=== PATIENT | female | born 1970 | race Caucasian/White ===

== ENCOUNTER 2021-05-25 12:46 | Outpatient (REF) | payer OTHER, SELFPAY ==
[2021-05-25 13:20] LABS: MANUAL DIFF FLAG NO
[2021-05-25 14:04] LABS: Basophils Percent Auto 0.5 % (0-2); Eosinophils Absolute Auto 0.4 X10*3/uL (0.0-0.4); Eosinophils Percent Auto 7.3 % (0-4); Hematocrit 40.3 % (37-47); Hemoglobin 13.5 g/dl (12.0-16.0); Imm Gran Abs Auto 0.02 X10*3/uL (0.00-0.03); Imm Gran Pct Auto 0.4 % (0.0-0.4); Lymphocytes Percent Auto 35.8 % (20-40); Mean Corpuscular HGB Conc 33.5 g/dl (31.0-35.0); Mean Corpuscular Hemoglobin 27.6 pg (27.0-33.0); Mean Corpuscular Volume 82.2 fL (80-98); Mean Platelet Volume 9.1 fL (9.4-12.3); Monocytes Absolute Auto 0.6 X10*3/uL (0.1-1.2); Monocytes Percent Auto 11.3 % (2-11); Neutrophils Absolute Auto 2.5 X10*3/uL (2.0-8.3); Neutrophils Percent Auto 44.7 % (45-73); Platelet Count 261 X10*3/uL (160-400); White Blood Count 5.6 X10*3/uL (4.8-10.8)
[2021-05-25 14:39] LABS: C Reactive Protein 0.15 mg/dL (< or = 0.50)
[2021-05-25 14:52] LABS: Erythrocyte Sedimentation Rate 7 MM/HR (0-20)
[2021-05-29 22:37] LABS: Protein C Activity 97 % (70-180); Protein S Activity rflx Tot&Fr 76 % (60-140)
[2021-05-30 01:01] LABS: Factor V Leiden NEGATIVE
== END 2021-05-25 12:47 | disposition home or self-care (01) ==
LOC: HO.LAB 12:46
PROVIDERS: PCP Internal Medicine; Visit Provider Psychiatry & Neurology Neurology
DX: G44.209 Tension-type headache, unspecified, not intractable (principal)
CPT/HCPCS: 36415; 81241; 85025; 85302; 85303; 85305; 85306; 85652; 86140

== ENCOUNTER 2021-05-28 19:01 | Emergency (ER) | payer OTHER, SELFPAY ==
[2021-05-28 19:33] VITALS: BP 141/80; PULSE 79; RESP 16; TEMP 36.2; O2SAT 99; BMI 28.3
--- NOTE | 2021-05-28 21:46 | ED_ITS ---
HPI - General Adult General Chief complaint: General Medical Stated complaint: R/O DVT Time Seen by Provider: 05/28/21 21:30 History of Present Illness HPI narrative: Patient is a 51-year-old female presents today with having diffuse bumps over the arms and legs. These lesions has occurred over the last week. is no fever no chills no chest pain or shortness of breath no nausea no vomiting. No focal weakness. Patient is from home. No cough no congestion or upper respiratory symptoms. No dizziness. Related Data Allergies Allergy/AdvReac Type Severity Reaction Status Date / Time interferons Allergy Unknown Uncoded 04/24/18 00:00 sulfa Allergy Unknown Uncoded 04/24/18 00:00 Review of Systems Review of Systems: No fever no chills no chest pain or shortness breath no nausea no vomiting Yes all other systems are reviewed and are negative [facility] Past Medical History Attestation statement: The following information was validated with the patient. Medical History High cholesterol HTN (hypertension) Psoriasis Raynaud disease TIA (transient ischemic attack) Social History Social History Advance Directives: No Advance Directives Information Provided: No Physical Exam Vital Signs: Vital Signs: Last Vital Signs Temp 97.1 F 05/28/21 19:33 Pulse 79 05/28/21 19:33 Resp 16 05/28/21 19:33 BP 141/80 H 05/28/21 19:33 Pulse Ox 99 05/28/21 19:33 Body Mass Index 28.3 Appearance: Alert. Oriented X3. No acute distress. Eyes: Pupils equal, round and reactive to light. ENT: Pharynx normal. Neck: Normal inspection. Neck supple. No lymph nodes noted. No crepitus CVS: Normal heart rate and rhythm. Pulses normal. Normal S1 and S2 Respiratory: No respiratory distress. Breath sounds normal. No Wheezing. No rales Abdomen: Soft and nontender. No rigidity. No distention. good BS x4 Skin: Positive skin lesions in the arms and legs. Speech seems to be attached to skin nonmobile. Approximately 3 cm x 3 cm in size. Skin itself appears normal. Extremities: No lower extremity edema. Neurovascular intact to all extremities. No Lacerations. No Rash Neuro: Oriented X 3. No motor deficit. No sensory deficit. Moving all extermities. No slurred speech Medical Decision Making MDM Narrative Medical decision making narrative: Unsure as to the etiology of these bumps. Patient has no systemic complaints at this time. Will have patient follow-up with Dermatology. Patient already seen Dermatology and her primary physician for the same issue in the past. In stable condition will discharge home Discharge Plan Discharge Clinical Impression: Skin abnormality Patient Disposition: Home, Self-Care Instructions: Acute Rash (ED) Additional Instructions: Please follow-up with your head athletic trainer on an outpatient basis. Referrals: Physician,Unknown [Primary Care Provider] - 2 days (Please follow-up with your skin doctor in the next few days.)
== END 2021-05-28 22:01 | disposition home or self-care (01) ==
PROVIDERS: Emergency Provider Emergency Medicine Emergency Medical Services
DX: R60.0 Localized edema (principal); R21 Rash and other nonspecific skin eruption
CPT/HCPCS: 99283

== ENCOUNTER 2023-10-26 18:05 | Emergency (ER) | payer OTHER, SELFPAY ==
--- NOTE | ~2023-10-26 | XR_ITS ---
EXAMINATION: XR CHEST 2 VIEWS CLINICAL INFORMATION: Hypertension. COMPARISON: None. TECHNIQUE: Frontal and lateral views of the chest were obtained. FINDINGS: There is mild cardiomegaly. No congestive heart failure is seen. There is no infiltrate, effusion or pneumothorax. There is mild elevation of the right hemidiaphragm. No acute osseous abnormality is seen. There are degenerative changes of the thoracic spine. XR/XR chest 2V IMPRESSION: 1. There is mild cardiomegaly, without congestive heart clear. 2. No focal infiltrate, effusion or pneumothorax is seen.
--- NOTE | ~2023-10-26 | CT_ITS ---
EXAMINATION: CT head/brain wo IV con CLINICAL INFORMATION: Reason for Exam hypertensive, headache COMPARISON: None. TECHNIQUE: Contiguous axial imaging was performed from the skull base to vertex without intravenous contrast. Sagittal and coronal reformatted images were obtained. This CT examination was performed using dose optimization techniques as appropriate, variously including the following: * Automated exposure control * Adjustment of mA and/or kV according to patient size (this includes techniques or standardized protocols for targeted exams where dose is matched to indication/reason for exam; i.e. extremities or head) Use of iterative reconstruction technique DLP: 592.61 mGy-cm FINDINGS: No acute osseous or soft tissue abnormality. The mastoid air cells and visualized portions of the paranasal sinuses are well aerated. There is no evidence of acute intracranial hemorrhage or territorial infarction. No abnormal mass effect or midline shift is seen. Carranza to white matter differentiation is well preserved. No extra-axial fluid collections are identified. No hydrocephalus. No significant volume loss. Patchy periventricular and deep white matter hypoattenuation is consistent with mild small vessel ischemic changes. CT/CT head/brain wo IV con IMPRESSION: No acute intracranial abnormality including hemorrhage, mass effect, hydrocephalus, or acute territorial edematous infarction.
--- NOTE | 2023-10-26 18:13 | ED_ITS ---
HPI - General Adult General Chief complaint: General Medical Stated complaint: high blood pressure, headache, nausea Time Seen by Provider: 10/26/23 21:49 Source: patient Mode of arrival: ambulatory Limitations: no limitations History of Present Illness HPI narrative: Patient is a 53 old female who presents to the emergency department for evaluation of intermittent headache predominantly frontal headache over the past week. It does alleviate with acetaminophen/ibuprofen but then returns. This prompted her to begin checking her blood pressure at home and reports that she has been having elevated readings 180/100. She contacted her primary care provider to try and schedule a visit to be seen and she was advised to come to the emergency department. She denies any dizziness, lightheadedness, vision changes, neck pain, chest pain, shortness of breath, nausea, vomiting, abdominal pain, numbness or tingling of the extremities. Reports compliance with her antihypertensives including amlodipine, losartan, and metoprolol tartrate without any recent dosage changes. Related Data Allergies Allergy/AdvReac Type Severity Reaction Status Date / Time interferons Allergy Unknown Hives Uncoded 10/26/23 18:13 sulfa Allergy Unknown Hives Uncoded 10/26/23 18:13 Review of Systems 2 Review of Systems: Yes all other systems are reviewed and are negative [facility] Past Medical History Attestation statement: The following information was validated with the patient. Source: old records reviewed Medical History Raynaud disease Psoriasis TIA (transient ischemic attack) High cholesterol HTN (hypertension) Social History Social History Smoked in Last 30 Days: No Use of substances other than those prescribed or required for medical reasons: No Advance Directives: No Advance Directives Information Provided: No Patient : No Physical Exam ED Vital Signs: Vital Signs - 24 hr 10/26/23 18:14 10/26/23 21:38 10/26/23 22:38 Temperature 98.4 F Pulse Rate 92 98 84 Respiratory Rate 18 16 16 Blood Pressure 184/102 H 190/102 H 142/87 H Pulse Oximetry 96 97 98 Oxygen Delivery Method Room Air Room Air Room Air BMI result Body Mass Index 30.0 Appearance: Alert.?Oriented to person, place and time. No acute distress.?Normal affect. Eyes: Pupils equal, round and reactive to light.? ENT: Pharynx normal.?? Neck: Normal inspection.? Neck supple.?? CVS: Heart sounds normal. Normal heart rate and rhythm.? Pulses normal.?? Respiratory: No respiratory distress.? Lung sounds clear to auscultation bilaterally?? Abdomen: Soft and non-tender. Normoactive bowel sounds. ? Skin: Skin warm and dry.? Normal skin color.? Extremities: No lower extremity edema.? Neuro: Moves all extremities spontaneously. Sensation intact bilaterally. CN II- XII intact. No focal neuro deficits. Ambulates with normal steady gait. Course Course Course Narrative: This is a rapid medical exam: Additional HPI, ROS, PE not included below will be deferred to primary provider. Patient is a 53-year-old female presenting to the ED with complaint of headache intermittently throughout the week, rates at 5/10. Has been checking BP at home, was 189/101. Called PCP, nurse referred patient to the ED. Currently on Losartan, amlodipine, and metoprolol. Denies recent medication changes. BP in triage 184/102. Denies chest pain or dyspnea. States at times vision gets fuzzy. Denies hx of similar headaches. Plan: EKG, labs, CT head Medications Administered Discontinued Medications Generic Name Dose Route Start Last Admin Trade Name Freq PRN Reason Stop Dose Admin Acetaminophen 975 mg 10/26/23 22:32 10/26/23 22:39 Acetaminophen 325 Mg Tablet PO 10/26/23 22:33 975 mg ONCE ONE Administration Medical Decision Making Medical Decision Making MDM Narrative: Patient is a 53 old female with past medical history of Raynaud's, psoriasis, TIA, hypercholesterolemia, hypertension presenting to emergency department for evaluation of an intermittent frontal headache and elevated blood pressure readings despite compliance with her antihypertensive regimen. At the time my examination she appears overall well, nontoxic, afebrile. Has no focal neurological deficits. A CT of the head was obtained prior to my assumption of care which reveals no acute intracranial pathology, no ICH/infarct. Headache does alleviate with use of acetaminophen which she is requesting at this time. Upon review her blood pressure has improved; 142/87. I discussed with patient appropriate ways to check blood pressure while at rest, legs crossed etc. and keeping a log to present to her primary care provider. Reviewed serum labs obtained no signs of end-organ damage. No leukocytosis, no anemia, no electrolyte abnormality, no FELECIA. High sensitive troponin below detectable limits. Urinalysis without evidence of infection. Viral panel is negative. EKG revealing a normal sinus rhythm with ventricular rate of 88, QTC 447, no ST elevation, no ST depression. No evidence of ACS. At this time feel that she is stable for discharge home and outpatient follow-up. Discussed strict return precautions. Differential Diagnosis Differential Diagnoses: The differential diagnosis associated with the presentation includes (As noted above) Admission/Observation Consideration of admission/observation: Escalation of care including admission/observation considered (See narrative above) Lab Data MDM Lab Attestation statement: I reviewed the patient's lab results. (See narrative above) 10/26/23 18:48 10/26/23 18:48 Labs: Lab Results 10/26/23 10/26/23 Range/Units 18:48 22:00 WBC 6.7 (4.8-10.8) X10*3/uL RBC 4.39 (4.20-5.50) X10*6/uL Hgb 12.5 (12.0-16.0) g/dl Hct 36.4 L (37.0-47.0) % MCV 82.9 (80.0-98.0) fL MCH 28.5 (27.0-33.0) pg MCHC 34.3 (31.0-35.0) g/dl RDW 12.7 (11.0-16.0) % Plt Count 194 (160-400) X10*3/uL MPV 9.5 (9.4-12.3) fL Immature Gran % (Auto) 0.3 (0.0-0.4) % Neut % (Auto) 31.2 L (45-73) % Lymph % (Auto) 49.7 H (20-40) % [place] % (Auto) 11.0 (2-11) % Eos % (Auto) 7.2 H (0-4) % Baso % (Auto) 0.6 (0-2) % Lymph # (Auto) 3.3 (1.2-4.9) X10*3/uL [place] # (Auto) 0.7 (0.1-1.2) X10*3/uL Eos # (Auto) 0.5 H (0.0-0.4) X10*3/uL Baso # (Auto) 0.0 (0.0-0.2) X10*3/uL Abs Immat Gran (auto) 0.02 (0.00-0.03) X10*3/uL Absolute Neuts (auto) 2.1 (2.0-8.3) x10*3/uL Absolute Nucleated RBC 0.000 (0.0-0.012) X10*3/uL Nucleated RBC % (auto) 0.0 (0.0-0.2) /100WBC PT 12.2 (11.1-13.3) SEC INR 1.0 (0.9-1.1) Sodium 144 (135-145) mmol/L Potassium 3.7 (3.3-5.1) mmol/L Chloride 108 (96-108) mmol/L Carbon Dioxide 24 (22-29) mmol/L Anion Gap 16 (12-20) BUN 13 (9-16) mg/dL Creatinine 0.83 (0.5-1.4) mg/dL Estim Creat Clear Calc 76.0 Estimated GFR > 60 Random Glucose 110 (60-115) mg/dL Calcium 9.4 (8.4-10.2) mg/dL Total Bilirubin 0.4 (0.0-1.0) mg/dL AST 24 (5-31) U/L ALT 17 (0-31) U/L Alkaline Phosphatase 97 (39-117) U/L Troponin I High Sens < 2.7 (<3.5-17.0) ng/L Total Protein 7.0 (6.5-8.0) g/dL Albumin 4.2 (3.5-5.0) g/dL Urine Color Yellow Urine Appearance Clear Urine pH 6.5 (5.0-9.0) Ur Specific [place] 1.010 (1.005-1.025) Urine Protein Negative (Neg-Trace) mg/dL Urine Glucose (UA) Negative (Negative) mg/dL Urine Ketones Negative (Negative) mg/dL Urine Blood Negative (Negative) Urine Nitrite Negative (Negative) Ur Leukocyte Esterase Negative (Negative) Influenza Type A (PCR) NEGATIVE (Negative) Influenza Type B (PCR) NEGATIVE (Negative) RSV RNA Qual (PCR) NEGATIVE (Negative) SARS-CoV-2 RNA (RT-PCR) NEGATIVE (Negative) Independent Interpretation I performed an independent interpretation of an: EKG (See narrative above) and CT Scan (No ICH) Radiology Impression Discussion of test interpretation with radiology: I have reviewed the radiologist's reading. Radiologist Impression: CT/CT head/brain wo IV con IMPRESSION: No acute intracranial abnormality including hemorrhage, mass effect, hydrocephalus, or acute territorial edematous infarction. XR/XR chest 2V IMPRESSION: 1. There is mild cardiomegaly, without congestive heart clear. 2. No focal infiltrate, effusion or pneumothorax is seen. Prescription Management I considered prescription management with: Other (Antihypertensive, she is on multiple agents in high doses, advised close outpatient follow-up with her PCP for further management/potential dosage changes.) Chronic Conditions Patient?s care impacted by: Hypertension Critical Care Time Critical Care Time Critical Care Time: Yes Total Critical Care Time: 35 Attestation: I personally attest to this critical care time spent taking care of the patient exclusive of all other billable procedures was approximately 35 minutes including initial evaluation of patient, ordering tests, x-ray interpretation, EKG interpretation, documentation, re-evaluation. Discharge Plan Discharge Clinical Impression: Headache, Hypertension Patient Disposition: Home, Self-Care Instructions: How to Take a Blood Pressure (ED), Acute Headache (ED), Hypertension (ED) Additional Instructions: You can take Tylenol 500 mg, 2 tablets (1,000mg) every 4-6 hours as needed for pain, but not to exceed 3 doses daily (3,000mg).? As discussed, continue taking your blood pressure medications as prescribed, follow-up closely with your primary care provider. Keep a record of your blood pressure readings to provide your primary care doctor. Return back to emergency department any new or worsening symptoms or concerns. Referrals: Loida Izaguirre MD [Primary Care Provider] - Interventions: ED Discharge Assessment Last Done: 10/26/23 22:45 Discharge Date/Time: 10/26/23 22:46
[2023-10-26 18:14] VITALS: BP 184/102; PULSE 92; RESP 18; TEMP 36.9; O2SAT 96
--- NOTE | 2023-10-26 18:17 | ECG_ITS ---
Test Reason : htn Blood Pressure : / mmHG Vent. Rate : 088 BPM Atrial Rate : 088 BPM P-R Int : 166 ms QRS Dur : 080 ms QT Int : 370 ms P-R-T Axes : 028 000 033 degrees QTc Int : 447 ms Normal sinus rhythm cannot exclude inferior infarct, but could be normal variant Borderline ECG No previous ECGs available Referred By: Heather Lee Electronically Signed By:RITESH GAMEZ
[2023-10-26 18:53] LABS: MANUAL DIFF FLAG NO
[2023-10-26 18:55] LABS: Basophils Percent Auto 0.6 % (0-2); Eosinophils Absolute Auto 0.5 X10*3/uL (0.0-0.4); Eosinophils Percent Auto 7.2 % (0-4); Hematocrit 36.4 % (37.0-47.0); Hemoglobin 12.5 g/dl (12.0-16.0); Imm Gran Abs Auto 0.02 X10*3/uL (0.00-0.03); Imm Gran Pct Auto 0.3 % (0.0-0.4); Lymphocytes Absolute Auto 3.3 X10*3/uL (1.2-4.9); Lymphocytes Percent Auto 49.7 % (20-40); Mean Corpuscular HGB Conc 34.3 g/dl (31.0-35.0); Mean Corpuscular Hemoglobin 28.5 pg (27.0-33.0); Mean Corpuscular Volume 82.9 fL (80.0-98.0); Mean Platelet Volume 9.5 fL (9.4-12.3); Monocytes Absolute Auto 0.7 X10*3/uL (0.1-1.2); Neutrophils Absolute Auto 2.1 x10*3/uL (2.0-8.3); Neutrophils Percent Auto 31.2 % (45-73); Platelet Count 194 X10*3/uL (160-400); Red Blood Count 4.39 X10*6/uL (4.20-5.50); Red Cell Distribution Width 12.7 % (11.0-16.0); White Blood Count 6.7 X10*3/uL (4.8-10.8)
[2023-10-26 19:06] LABS: Prothrombin Time 12.2 SEC (11.1-13.3)
[2023-10-26 19:08] LABS: Alanine Aminotransferase 17 U/L (0-31); Albumin Level 4.2 g/dL (3.5-5.0); Alkaline Phosphatase 97 U/L (39-117); Anion Gap 16 (12-20); Aspartate Amino Transferase 24 U/L (5-31); Bilirubin Total 0.4 mg/dL (0.0-1.0); Blood Urea Nitrogen 13 mg/dL (9-16); Calcium 9.4 mg/dL (8.4-10.2); Carbon Dioxide 24 mmol/L (22-29); Chloride 108 mmol/L (96-108); Estimated Glomerular Filt Rate > 60; Glucose Random 110 mg/dL (60-115); Potassium 3.7 mmol/L (3.3-5.1); Sodium 144 mmol/L (135-145)
[2023-10-26 19:17] LABS: Troponin-I High Sensitivity < 2.7 ng/L (<3.5-17.0)
[2023-10-26 21:38] VITALS: BP 190/102; PULSE 98; RESP 16; O2SAT 97
[2023-10-26 22:09] LABS: Appearance Urine Clear; Color Urine Yellow; Glucose Urine UA Negative (Negative); Leukocyte Esterase Urine Negative (Negative); Nitrite Urine Negative (Negative); PH 6.5 (5.0-9.0); Urine Blood Negative (Negative); Urine Ketones Negative (Negative); Urine Protein Negative (Neg-Trace)
[2023-10-26 22:38] VITALS: BP 142/87; PULSE 84; RESP 16; O2SAT 98
[2023-10-26] MEDS: Acetaminophen 325 MG TABLET 975 MG PO (22:39)
[2023-10-26 22:41] LABS: Influenza A PCR NEGATIVE (Negative); Influenza B PCR NEGATIVE (Negative); Resp Syncy Virus RNA Qual PCR NEGATIVE (Negative); SARS COV2 PCR INHOUSE NEGATIVE (Negative)
== END 2023-10-26 22:46 | disposition home or self-care (01) ==
PROVIDERS: Nurse Practitioner Family; Registered Nurse Emergency; Emergency Provider Emergency Medicine; PCP Internal Medicine
DX: R51.9 Headache, unspecified (principal); I10 Essential (primary) hypertension; R11.2 Nausea with vomiting, unspecified; R94.31 Abnormal electrocardiogram [ECG] [EKG]; Z11.52 Encounter for screening for COVID-19; Z79.899 Other long term (current) drug therapy; Z20.822 Contact with and (suspected) exposure to COVID-19
CPT/HCPCS: 0241U; 36415; 70450; 71046; 80053; 81003; 84484; 85025; 85610; 93005; 99285

== ENCOUNTER → 2023-10-26 18:17 | Outpatient (BNV) | payer OTHER, SELFPAY | PROVIDERS: Emergency Provider Emergency Medicine; PCP Internal Medicine; Visit Provider Internal Medicine | DX: R94.31 Abnormal electrocardiogram [ECG] [EKG] (principal) | CPT/HCPCS: 93010 ==

== ENCOUNTER 2024-09-18 08:52 | Outpatient (AMB) | payer OTHER, SELFPAY ==
[2024-09-18 09:01] VITALS: BP 140/80; PULSE 61; O2SAT 96; BMI 29.4
--- NOTE | 2024-09-18 09:01 | A.OFFVIS_ITS ---
Vital Signs 09/18/24 09:01 Height 5 ft 3 in Weight 166 lb 2 oz BMI 29.4 BP 140/80 H Blood Pressure Location Lt brachial Position Sitting Pulse 61 Pulse Source Pulse Oximeter Pulse Oximetry (%) 96 Oxygen Delivery Method Room Air Intake Visit Reasons: PSA Intake Note: Patient presents for follow up on PSA. She needs refills on Humira and Leflunomide. Accompanied by: Spouse Allergies interferons Allergy (Unknown, Uncoded 09/18/24 09:03) Hives sulfa Allergy (Unknown, Uncoded 09/18/24 09:03) Hives HPI HPI PSA: Details: She has not had humira and leflunomide in 2 months. She did not [facility] because her father was diagnosed with cancer and required evaluations. Hands and feet are swellon. Hard to open jars. Hands are weak. Limping. She had a lung infection less than a month ago and was placed on prednisone taper and z-pack by bss solution architect. Her joints felt better. Psoriasis did not flare. [facility] Medical History Raynaud disease Psoriasis TIA (transient ischemic attack) High cholesterol HTN (hypertension) Review of Systems Const All systems reviewed & are unremarkable except as noted in HPI and below Physical Exam Vital Signs: Last Vital Signs Pulse 61 09/18/24 09:01 BP 140/80 H 09/18/24 09:01 Pulse Ox 96 09/18/24 09:01 Oxygen Delivery Method Room Air 09/18/24 09:01 BMI result Body Mass Index 29.4 Const Other: General: Comfortable CVS: RRR Respiratory: clear to auscultation bilaterally. Good respiratory effort Skin: No lesions seen MSK: Chronic synovial thickening bilateral MCPs. She has synovitis in right 2nd 4th and 5th PIP and left 5th PIP. All PIP knees are tender. Bilateral wrists are tender. She has tenderness of bilateral shoulders. Shoulder abduction 160 degrees. Good internal external rotation of bilateral shoulders. Bilateral MTP tenderness. Tender left knee with mild synovitis present. Limited full external rotation of bilateral hips. Assessment & Plan Assessment & Plan (1) Psoriatic arthritis: Comment: Uncontrolled off of DMARD therapy. Code(s): L40.50 - Arthropathic psoriasis, unspecified Category: Medical Plan: Labs for disease and drug monitoring ordered We will start PA process to resume Humira 40 mg every other week. Prescription sent to [facility] After lab results are back, I will send prescription for leflunomide 20 mg daily and meloxicam 15 mg daily. I will defer prednisone for now. She will call office if her joint symptoms worsened. Requesting records [facility] Return to clinic in 3 months (2) Other long term acute care registered nurse (current) drug therapy: Code(s): Z79.899 - [facility] [place] [facility] (current[facility] drug therapy Category: Medical Plan: See above Orders: Orders Hepatitis B,C Profile Today L40.50 - Arthropathic psoriasis, unspecified, Z79.899 - Other long term acute care registered nurse (current) drug therapy Erythrocyte Sedimentation Rate Today L40.50 - Arthropathic psoriasis, unspecified, Z79.899 - Other long term acute care registered nurse (current) drug therapy Aspartate Amino Transferase Today Z79.60 - prison (current) use of unspecified immunomodulators and immunosuppressants Complete Blood Count Auto Diff Today Z79.60 - superintendent container terminal (current) use of unspecified immunomodulators and immunosuppressants T Spot TB Today L40.50 - Arthropathic psoriasis, unspecified, Z79.899 - Other [place] [facility] (current) drug therapy C Reactive Protein Today L40.50 - Arthropathic psoriasis, unspecified, Z79.899 - Other long term acute care registered nurse (current) drug therapy Alanine Aminotransferase Today Z79.60 - [facility] (current) use of unspecified immunomodulators and immunosuppressants Creatinine Today Z79.60 - [facility] terminal (current) use of unspecified immunomodulators and immunosuppressants Medications: New adalimumab (Humira(CF) Pen) PA needed. Continuity of treatment. 40 mg (0.4 mL) subcut Q14D 2 ea 2RF Coding Level of Care Code Est Pt Level 4 (24612) Complex EM visit Add On G2211 Diagnoses Psoriatic arthritis L40.50 Other long term acute care registered nurse (current) drug therapy Z79.899
--- OUTSIDE RECORDS SUMMARY | 2024-09-18 09:08 | XMS_ITS | Encounter Summary ---
Author Organization [facility] Address [address] [place] [address] Care Team Providers Care Certification And Selection Specialist Name Role Phone Loida Izaguirre MD Primary Care Provider [phone] Reason for Visit * Reason Onset Date Comments prior auth 08/26/2024 Encounter Details Date Type Department Care Team ([facility] Contact Info) Description 08/26/2024 Telephone [facility] [address] [phone] Jeaneth South [place] prior auth Social History Tobacco Use Types Packs/Day Years Used Date Smoking Tobacco: Former Cigarettes S tarted: 08/28/1982 Smokeless Tobacco: Never Quit: 08/31/2002 Alcohol Use Standard Drinks/Week Comments No 0 (1 standard drink = 0.6 oz pur e alcohol) Sex and Gender Information Value Date Recorded Sex Assigned at Not on file Gender Identity Not on file Sexual Orientation Not on file Job Start Date Occupation Industry Not on file Not on file Not on file documented as of this encounter Progress Notes * Jeaneth South [place] - 08/26/2024 1:59 PM EST Albuterol prior authorization faxed to [facility]. Fax confirmation received. documented in this encounter Plan of Treatment Upcoming Encounters Date Type Department Care Team (Late Contact Info) Description 09/24/2024 8:15 AM EST Appointment [facility] Nuclear Medicine [address] [place] [phone] 10/21/2024 8:00 AM EST Appointment [facility] Xray [address] [place] [address] 10/29/2024 8:45 AM EST Office Visit Obstetrics and Gynecology - [place] [address] [place] [address] Doris Gonzales, CNM [address] [place] [address] 10/30/2024 1:15 PM EST Office Visit Adult Medicine [facility] [address] [place] [address] Loida Izaguirre MD [address] [place] [address] 10/31/2024 9:00 AM EST Office Visit Thoracic Surgery - [place] 299 [facility] [address] [place] [address] Cheri Beck MD [address] [address] 11/20/2024 9:10 AM EDT Office Visit Pulmonolgy - [place] 175 [facility] [address] [place] [address] Cynthia Dc NP 175 [facility] [address] [place] [address] documented as of this encounter Visit Diagnoses Not on filedocumented in this encounter Care Teams Certification And Selection Specialist Relationship Specialty Start Date End Date Loida Izaguirre MD [address] [place] [id number] PCP - General Internal Medicine 09/01/21 documented as of this encounter
--- OUTSIDE RECORDS SUMMARY | 2024-09-18 09:08 | XMS_ITS | Encounter Summary ---
Author Organization [facility] Address [address] [place] [address] Care Team Providers Care Process Engineering Intern Name Role Phone Loida Izaguirre MD Primary Care Provider [phone] Reason for Visit * Reason Onset Date Comments DME request 08/22/2024 Original CPAP Encounter Details Date Type Department Care Team ([facility] Contact Info) Description 08/22/2024 Telephone [facility] 175 [facility] [address] [place] [phone] Jeaneth South [place] DME request (Original CPAP) Social History Tobacco Use Types Packs/Day Years [...] Progress Notes * Jeaneth South [place] - 08/22/2024 1:38 PM EST Original CPAP order faxed to [facility]. Fax confirmation received. documented in this encounter Plan of Treatment Upcoming Encounters Date Type Department Care Team ([facility] Contact Info) Description 09/24/2024 8:15 AM EST Appointment [facility] Nuclear Medicine [address] [place] [phone] 10/21/2024 8:00 AM EST Appointment [facility] Xray [address] [place] [address] 10/29/2024 8:45 AM EST Office Visit Obstetrics and Gynecology - [place] [address] [place] [address] Doris Gonzales, CNM [address] [place] [address] 10/30/2024 1:15 PM EST Office Visit Adult Medicine [facility] [address] [place] [address] Loida Izaguirre MD [address] [place] [address] 10/31/2024 9:00 AM EST Office Visit Thoracic Surgery - [place] 299 [facility] [address] [place] [address] Cheri Beck MD [address] [address] 11/20/2024 9:10 AM EDT Office Visit Pulmonolgy - [place] 175 [facility] [address] [place] [address] Cynthia Dc NP 175 [facility] [address] [place] [address] documented as of this encounter Visit Diagnoses Not on filedocumented in this encounter Care Teams Process Engineering Intern Relationship Specialty Start Date End Date Loida Izaguirre MD [address] [place] [address] PCP - General Internal Medicine 09/01/21 documented as of this encounter
--- OUTSIDE RECORDS SUMMARY | 2024-09-18 09:08 | XMS_ITS | Encounter Summary ---
Author Organization [facility] Address [address] [place] [address] Care Team Providers Care Transformer Coil Winder Name Role Phone Loida Izaguirre MD Primary Care Provider [phone] Reason for Referral * Medications - Closed Specialty Diagnoses / Procedures Referred By Controse mary t Referred To Contact Diagnoses Chronic obstructive pulmonary disease with acute lower respiratory infection (CMS/HCC) Cynthia Dc NP [address] [address] Referral ID Status Reason Start Date Expiration Date Visits Re quested Visits Authorized [id number] Closed 1 1 Reason for Visit * Reason Comments COPD Sleep Apnea Sleep study review. Encounter Details Date Type Department Care Team (Late st Contact Info) Description 08/22/2024 8:50 AM EST Office Visit Pulmonolgy - [place] [address] [facility] [address] [address] Cynthia Dc NP 175 [facility] [address] [place] [address] Chronic obstructive pulmonary disease with acute lower respiratory infection (CMS/HCC) (Primary Dx); Non-seasonal allergic rhinitis due to other allergic trigger; Moderate obstructive sleep apnea; Pulmonary nodules; Rheumatoid arthritis, involving unspecified site, unspecified whether rheumatoid factor present (CMS/HCC); Overweight (BMI 25.0-29.9) Social History Tobacco Use Types Packs/Day Years [...] on file documented as of this encounter Last Filed Vital Signs Vital Sign Reading Time Taken Comments Blood Pressure 124/70 08/22/2024 8:56 AM EST Pulse 68 08/22/2024 8:56 AM EST Temperature 35.8 ??C (96.4 ??F) 08/22/2024 8:56 AM ES T Respiratory Rate 16 08/22/2024 8:56 AM EST Oxygen Saturation 99% 08/22/2024 8:56 AM EST Inhaled Oxygen Concentration - - Weight 75.3 kg (166 lb) 08/22/2024 8:56 AM EST Height 160 cm (5' 3 ) 08/22/2024 8:56 AM EST Body Mass Index 29.41 08/22/2024 8:56 AM EST documented in this encounter Ordered Prescriptions Prescription Sig Dispensed Refills Start Date End Da te albuterol HFA (Ventolin HFA) 90 mcg/actuation inhalerIndications:Chron ic obstructive pulmonary disease with acute lower respiratory infection (CMS/HCC) Inhale 2 puffs by mouth every 4 (four) hours if needed for wheezing. 54 g 3 08/22/2024 umeclidinium-vilanteroL (Anoro Ellipta) 62.5-25 mcg/actuation inhalerIndications:Chron ic obstructive pulmonary disease with acute lower respiratory infection (CMS/HCC) Inhale 1 puff by mouth 1 (one) time each day. 3 each 3 08/22/2024 loratadine (CLARITIN) 10 mg tabletIndications:Non-se asonal allergic rhinitis due to other allergic trigger Take 1 tablet (10 mg total) by mouth 1 (one) time each day. 90 tablet 3 08/22/2024 08/22/2025 montelukast (SINGULAIR) 10 mg tabletIndications:Non-se asonal allergic rhinitis due to other allergic trigger Take 1 tablet (10 mg total) by mouth at bedtime. Sig: TAKE 1 TABLET BY MOUTH AT BEDTIME 90 tablet 3 08/22/2024 predniSONE (DELTASONE) 10 mg tabletIndications:COPD exacerbation,asthma exacerbation Take 4 tablets (40 mg total) by mouth 1 (one) time each day for 3 days, THEN 3 tablets (30 mg total) 1 (one) time each day for 3 days, THEN 2 tablets (20 mg total) 1 (one) time each day for 3 days, THEN 1 tablet (10 mg total) 1 (one) time each day for 3 days. 30 each 08/22/2024 09/03/2024 azithromycin (ZITHROMAX) 250 mg tabletIndications:Chroni c obstructive pulmonary disease with acute lower respiratory infection (CMS/HCC) Take 2 tablets (500 mg total) by mouth 1 (one) time each day for 1 day, THEN 1 tablet (250 mg total) 1 (one) time each day for 4 days. 6 each 08/22/2024 08/27/2024 documented in this encounter Progress Notes * Cynthia Dc, SILVICULTURE TEACHER - 08/22/2024 8:50 AM EST ADULT PULMONARY MEDICINE FOLLOW UP CHIEF COMPLAINT or REASON FOR CONSULTATION: COPD and Sleep Apnea (Sleep study review. ) HISTORY OF PRESENT ILLNESS: Christine Matt is a 54 y.o. female, former smoker with a history of RA, Ranauld's, COPD, type Emphysema, Sarcoidosis and COVID 19 in 02/2022 who comes for follow up. She has seeing me on 06/30/2023 but lost to follow up. She denies any visits to ER, hospitlizations or prednisone use for breathing since last visit. She states received prednisone from Dr. Roberts due to her RA flare up awhile back. She is on Anoro daily and Singular nightly. However notes that about 3 weeks ago her cough increased and change color from clear to green but no fevers or chills. She states notes wheezing but no chest tightness and dyspnea is stable. Can do 1flight or flat ground with normal pace about half of a parking lot. She denies recent sick contacts but did have recently sore throat. No sinus congestion, no earache,no sinus pressure or headaches. She states she always poor sleeper. Was told that snores. She lays down at 830 and takes about 1 hour to read then falls asleep and gets up at 530. States Snoirng, expirience nightmares, frequently gets up to pee up to 6 times, RLS, toss and turn, and unrested in the morning. Occasionally has headaches. She had sleep study on 08/09/2023 which shows moderate sleep apnea seeing today first time after study done. States no weight change. patient would like to [facility]. She has allergies and well controlled on Claratin and Flonase. Last visit added Singulair feels better. She states restarted on Omeprazole 40mg daily and also added Carafate for her GERD but still have significant heartburn seeing GI and seeing Thoracic surgery for evaluation of hernias. Patient states seeing Dr. Roberts in [place] for RA. Had given prednisone for flare up. She was on Arava but now takes Humira. Working on weight changes. Stopped eating icecream and watching portions. ALLERGIES: Allergies Allergen Reactions Other Hives Interferon Abdiel Interferons Methotrexate Hives Sulfate Ion Hives ACTIVE MEDICATIONS: Outpatient Medications Marked as Taking for the 08/22/24 encounter (Office Visit) with Cynthia Dc NP Medication Sig Dispense Refill adalimumab (Humira,CF, Pen) 40 mg/0.4 mL pen Inject into the skin every 14 days. albuterol HFA (Ventolin HFA) 90 mcg/actuation inhaler Inhale 2 puffs by mouth every 4 (four) hours if needed for wheezing. 54 g 3 amLODIPine (NORVASC) 10 mg tablet Take 1 tablet (10 mg total) by mouth 1 (one) time each day. aspirin 81 mg EC tablet TAKE 1 TABLET BY MOUTH EVERY DAY 90 tablet 1 clonazePAM (KlonoPIN) 0.5 mg tablet Take 0.5 mg by mouth at bedtime as needed. diclofenac (VOLTAREN) 1 % topical gel APPLY 1 G TOPICALLY 4 TIMES DAILY NEEDED (PAIN). famotidine (PEPCID) 20 mg tablet Take 1 Tablet by mouth 2 times daily as needed for Heartburn. loratadine (CLARITIN) 10 mg tablet Take 1 tablet (10 mg total) by mouth 1 (one) time each day. 90 tablet 3 losartan (COZAAR) 100 mg tablet Take 1 tablet (100 mg total) by mouth 1 (one) time each day. medical supply, miscellaneous (MISCELLANEOUS MEDICAL [facility]Y [facility]) [facility]. Devices (Fingertip Pulse Oximeter) [facility] Sig - Route: 1 Device by Does not apply route as needed for Other (shortness of breath). - Does notapply Sent to pharmacy as: Fingertip Pulse Oximeter metoprolol tartrate (LOPRESSOR) 100 mg tablet Take 1 tablet (100 mg total) by mouth 1 (one) time each day. montelukast (SINGULAIR) 10 mg tablet Take 1 tablet (10 mg total) by mouth at bedtime. Sig: TAKE 1 TABLET BY MOUTH AT BEDTIME 90 tablet 3 omeprazole (PriLOSEC) [address] capsule TAKE 1 CAPSULE BY MOUTH DAILY. TAKE ON EMPTY STOMACH, WAIT 30 MINUTES AND THEN EAT TO ACTIVATE MEDICATION. rosuvastatin (CRESTOR) 5 mg tablet Take 1 tablet (5 mg total) by mouth 1 (one) time each day. sucralfate (CARAFATE) 1 gram tablet Take 1 Tablet by mouth 4 times daily. umeclidinium-vilanteroL (Anoro Ellipta) 62.5-25 mcg/actuation inhaler Inhale 1 puff by mouth 1 (one) time each day. 3 each 3 venlafaxine XR (EFFEXOR-XR) 150 mg 24 hr capsule Take 150 mg by mouth daily. [DISCONTINUED] albuterol HFA (Ventolin HFA) 90 mcg/actuation inhaler INHALE 2 PUFFS INTO THE LUNGS EVERY 4 HOURS NEEDED FOR COUGH OR WHEEZING. [DISCONTINUED] loratadine (CLARITIN) 10 mg tablet Take 1 tablet (10 mg total) by mouth 1 (one) timeeach day. [DISCONTINUED] montelukast (SINGULAIR) 10 mg tablet Sig: TAKE 1 TABLET BY MOUTH AT BEDTIME Sent to pharmacy as: Montelukast Sodium 10 MG Oral Tablet (SINGULAIR) [DISCONTINUED] umeclidinium-vilanteroL (Anoro Ellipta) 62.5-25 mcg/actuation inhaler Inhale 1 Puff into the lungs daily. REVIEW OF SYSTEMS: GENERAL: No malaise, signifcant weight loss, fevers or chills,+fatigue HEENT: worsening vision, no nose bleeds or throat or ear issues,+nasal congestion and clearing throat improved on meds,+snoring NECK: Negative for lumps, goiter, pain and significant neck swelling RESPIRATORY: see HPI CARDIOVASCULAR: no chest pain, leg swelling or palpitations+HTN,+gasping GI: No abdominal discomfort, blood in stools or black stools, +diarrhea + acid reflex on PPI and Pepcid : No dysuria, frequency or incontinence or nocturia MUSCULOSKELETAL: + hand joint pain +swelling, back pain, or +muscle pain+body aches(RA, +Raynaud's) SKIN: No lesions, rash or itching PSYCH: + sleep disturbance, +anxiety, +depression, claustrophobia or SI/HI. HEMATOLOGY/LYMPHOLOGY No prolonged bleeding, easy bruisability or swollen nodes ENDOCRINE: No cold or heat intolerance, +polyuria, +polydipsia or goiter. NEURO: + frequent headache, syncope, seizures, weakness or numbness+TIA The remainder of the review of systems is noncontributory PAST MEDICAL HISTORY: Past Medical History: Diagnosis Date Anxiety 05/09/2018 DX:Anxiety Chronic hepatitis C (CMS/HCC) 05/09/2018 DX:Chronic hepatitis C (HCC); COMMENT: Currently treated at [facility] in [place]. Negative titers 05/2018 Chronic neck and back pain 09/25/2018 DX:Chronic neck and back pain Colon polyps 05/09/2018 DX:Colon polyps Complex ovarian cyst 10/18/2018 DX:Complex ovarian cyst Constipation 10/08/2018 DX:Constipation COPD (chronic obstructive pulmonary disease) (CMS/HCC) 01/04/2022 DX:COPD (chronic obstructive pulmonary disease) (HCC) Depression 05/09/2018 DX:Depression; COMMENT: Follows with psychiatrist in [place] Taking effexor for 14 yrs Epigastric pain DX:Epigastric pain Foot fracture, right 04/18/2018 DX:Foot fracture, right Gastritis DX:Gastritis GERD (gastroesophageal reflux disease) 05/09/2018 DX:GERD (gastroesophageal reflux disease) HTN (hypertension) 05/09/2018 DX:HTN (hypertension) Hyperlipidemia 05/29/2020 DX:Hyperlipidemia Internal hemorrhoids DX:Internal hemorrhoids Intertrigo 09/25/2018 DX:Intertrigo Macromastia 09/25/2018 DX:Macromastia Nausea DX:Nausea Psoriasis 05/09/2018 DX:Psoriasis; COMMENT: On topical steroid PTSD (post-traumatic stress disorder) 05/09/2018 DX:PTSD (post-traumatic stress disorder) Raynaud's phenomenon 10/18/2018 DX:Raynaud's phenomenon Rheumatoid arthritis (CMS/HCC) DX:Rheumatoid arthritis (HCC) Sarcoid 09/01/2022 DX:Sarcoid Sarcoidosis DX:Sarcoidosis Spinal stenosis 10/18/2018 DX:Spinal stenosis Subclinical hypothyroidism 05/20/2019 DX:Subclinical hypothyroidism PAST SURGICAL HISTORY: Past Surgical History: Procedure Laterality Date ANKLE SURGERY Right PROCEDURE: HISTORICAL ANKLE SURGERY; COMMENT: internal fixation--- pin removed later BREAST BIOPSY PROCEDURE: BX BREAST; PERC NEEDLE CORE W/IMAG GUID CARPAL TUNNEL RELEASE Left 02/08/2021 PROCEDURE: IA NEUROPLASTY &/TRANSPOS MEDIAN NRV CARPAL TUNNE; COMMENT: with Dr. Wilson eCTR COLONOSCOPY PROCEDURE: HISTORICAL COLONOSCOPY; COMMENT: 2010 with polyps COLONOSCOPY 08/2019 PROCEDURE: HISTORICAL COLONOSCOPY; COMMENT: Performed September 24 with along with EGD-repeat colonoscopy in 10 years ESOPHAGOGASTRODUODENOSCOPY 08/2019 PROCEDURE: IA EGD TRANSORAL BIOPSY SINGLE/MULTIPLE; COMMENT: Performed with colonoscopy on September 24-with Dr. Cruz. Positive for erythema and antrum and duodenum ESOPHAGOGASTRODUODENOSCOPY 12/23/2020 PROCEDURE: IA EGD TRANSORAL BIOPSY SINGLE/MULTIPLE; COMMENT: Visually normal; mapping biopsies doneto evaluate intestinal metaplasia of the gastric mucosa. Pathology: Normal, no intestinal metaplasia. ESOPHAGOGASTRODUODENOSCOPY PROCEDURE: IA EGD TRANSORAL BIOPSY SINGLE/MULTIPLE; COMMENT: Formed on December 23, 2020 HAND SURGERY Right PROCEDURE: HISTORICAL HAND SURGERY; COMMENT: carpal tunnel and trigger finger KNEE SURGERY Left PROCEDURE: HISTORICAL KNEE SURGERY; COMMENT: age 13 OOPHORECTOMY Right PROCEDURE: HISTORICAL OOPHORECTOMY; COMMENT: for cyst TUBAL LIGATION PROCEDURE: HISTORICAL TUBAL LIGATION SOCIAL HISTORY: TOBACCO: Started 13 years old, Quit: 2001, around 2 pack daily at the most, for at least 20 years. Patient is 39 PPY. ALCOHOL: past sober for 19 year DRUGS: clean for 19 years- meth. 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 Smoking. Cats. Nohot tubs. LUNGS FAMILY HISTORY: none IMMUNIZATION: 2021 Influenza Vaccine none Pneumococcal 13 2017 Pneumococcal 23 2021 Moderna x1 PULMONARY HOSPITALIZATION Hx: Never PHYSICAL EXAM: Visit Vitals BP 124/70 Pulse 68 Temp 35.8 ??C (96.4 ??F) (Temporal) Resp 16 Ht 1.6 m (63 ) Wt 75.3 kg (166 lb) SpO2 99% BMI 29.41 kg/m?? Smoking Status Former BSA 1.79 m?? BMI PLAN BMI BMI is greater than 25.0 (above the normal range) - see Plan APPEARANCE: Overweight(29.41). Alert and in no acute distress. Speaks in full sentences and no stridor. EYES: Conjunctiva and sclera normal. NOSE/SINUS: Nares normal. Septum midline. Mucosa erythematous without drainage or sinus tenderness. MOUTH/THROAT: no erythema or exudates. Mallampati class III-IV. No thrush. NECK: Neck supple, thyroid symmetric and of normal size. HEART: RRR with normal S1 and S2, no murmurs, no gallops, no JVD appreciated. LUNG: Vesicular sounds adequate bilaterally without wheezes, crackles, rales, rhonchi or rubs. Normal tactile fremitus. Equal chest expension. ABDOMEN: Bowel sounds normoactive, soft, non-tender EXTREMITIES: Warm and well perfused without clubbing, cyanosis, or edema. LYMPH NODES: No cervical and supra-clavicular lymphadenopathy. NEURO: Awake, alert and oriented x 3, no focalization. DIAGNOSTIC DATA: PULMONARY OXYGEN TESTING: Peripheral oxygen saturation or SpO2 on RA today is 99%. PULMONARY BLOOD WORK: CBC-no infection, anemia or eosinophilia Antitripsyn- no elevated SHERWIN- elevated>52(105) IgE-not elevated Allergies-none CARDIOPULMONARY TEST: Last Pulmonary function Test showed: Date: August 16, 2022 Previous PFT: 07/2021 Spirometry: FVC 100% predicted. FEV1 102% predicted. FEV1/FVC 80%. There is no significant responseto bronchodilator. Lung volumes: TLC 109% predicted. RV 95% predicted. Diffusing capacity: The uncorrected diffusing capacity is normal at 87% predicted. Interpretation: Normal pulmonary function studies. DATE OF SERVICE: 08/02/21 INDICATION: SOB, Sarcoidosis SPIROMETRY: FEV1 is 108 % predicted and an FVC is 107 % predicted.The FEV1/FVC ratio is 100% of normal, No significant response to bronchodilators noted. Maximum voluntary ventilation 79% predicted. LUNG VOLUMES: Total lung capacity (TLC): 104% predicted. Residual volume (RV): 79% predicted RV/TLC ratio is 76% of normal End respiratory volume (ERV): 127% predicted DIFFUSION CAPACITY: DLCO 78% predicted. DlCO/VA 84% of predicted COMPARISONS: INTERPRETATION: This pulmonary function test is essnetially normal. There is no evidence of obstructive or restrictive lung disease. The diffusion is at the lower end of normal- this is likely 2nd to pt's smoking history RADIOLOGIST IMAGING: CT CHEST W [facility]AST at [facility] Result Date:09/30/2021 1.Mild emphysema in bilateral apecies. 2. Sub 5mm nodules in the right lobe. 3. Bilateral atelectasis/reticular opacities in bilateral lower lobes. CHEST, TWO VIEWS Result Date:06/22/2021 HISTORY: Sarcoidosis. Prior study: Chest x-ray 07/31/2020. FINDINGS: The lungs are clear. No pleural effusion is seen. No pneumothorax is seen. The cardiomediastinal silhouette is within normal limits. No acute or aggressive appearing bony abnormalities are seen. There is mild curvature and degenerative change of the spine. IMPRESSION IMPRESSION: No acute pulmonary pathology. ASSESSMENT: 1. Chronic obstructive pulmonary disease with acute lower respiratory infection (CMS/HCC) azithromycin (ZITHROMAX) 250 mg tablet predniSONE (DELTASONE) 10 mg tablet umeclidinium-vilanteroL (Anoro Ellipta) 62.5-25 mcg/actuation inhaler albuterol HFA (Ventolin HFA) 90 mcg/actuation inhaler 2. Non-seasonal allergic rhinitis due to other allergic trigger montelukast (SINGULAIR) 10 mg tablet loratadine (CLARITIN) 10 mg tablet 3. Moderate obstructive sleep apnea CPAP DME 4. Pulmonary nodules 5. Rheumatoid arthritis, involving unspecified site, unspecified whether rheumatoid factor present (CMS/HCC) 6. Overweight (BMI 25.0-29.9) who is former smoker, hx of mild emphysema and mild ILD from Sarcoidossis and/or RA as well as nodules and thoracic lymphadenopathy. CT in 2021 shows non-specific nodules some of them calcified(granuloma) and mild medistinal and hilar lymph nodues. She has mild emphysema at the lung apecies, subsegmental atalectasis and reticular opacities in lower lobes. She has 4mm on RLL and 1mm at major fissure nodules non-calcified but stable for a year and no suspicious features. Her PFT 07/2022is normal with improved DLCO(78% to 87%). Pt doing well on Anoro daily and albuterol as needed. Her Rheumotologist started on Humira instead of Arava which help improve RA and ILD-CT. She has allergies and possibly due to allergies cough with Claritin and Flonase still persist. May benefit from Singulair or similar. PLAN: COPD/ASTHMA W EXACERBATION/INFECTION - Continue on Anoro 1puff daily - Continue on Singulair 10mg daily - Continue on albuterol 2 puffs every 6 hours as needed - give prednisone taper due to increased cough and wheezes -give Zpack due to purulent cough ILD - Continue monitoring witth PFTs and imaging as symtpms progress. LUNG NODULES/LYMPHADENOPATHY - per guidelines no follow up is not necessary. MODERATE CHRISSY -Pathophysiology, diagnostic, treatment options, risks and benefits of CPAP/Bipap use, risks of nontreatment of CHRISSY/central apnea, and care/maintenance of CPAP/BiPAP were discussed. All questions answered. Patient also agreed not to drive or operate heavy machinery if he/she should feel sleepy, green chain puller to a safe part of the road and not resume until fully awake. - [facility] 6[facility] -discuss with patient importance of 70% use for compliance -discuss to call provider if pressures are uncomfortable -discussed to call [facility] if supplies needed RA -continue on Humira 40mg - follow up Dr. Roberts for further treatment ALLERGIES -continue on Claritin 10mg prn for nasal/eye sytmpms -continue Flonase 2sprays prn for nasal symtpms -avoid triggers. GERD - Continue on Omeprazole 40mg daily and Pepcid 20mg BID and Carafate 1G with food and bedtime. - Continue on low acid diet - Instructed to follow-up with PCP and specialist on this health issue tp get different medication if omeprazole 40mg is not covered by insurance. Obesity - Discussed portion control - Discussed diet changes - Discussed physical activities. - Follow up with Loida Izaguirre for the other co-morbilities. - The patient was educated about COPD exacerbation symptoms, reviewed sleep study and educated about sleep apnea and its treatment, where assessment and plan was reviewed and explained, some educational material about his pulmonary problems was given with the discharge summary. All questions were answered. RETURN TO THE NEXT VISIT: Based on physical exam, symptomatology, tests requested and baseline pulmonary evaluation/disease, I instructed the patient to come back to see me in 3 months for reevaluation after the test has beendone or earlier if the patient needed. Thanks Loida Izaguirre for allowing me to have the opportunity to assist in the care of this patient. documented in this encounter Plan of Treatment Upcoming Encounters Date Type Department Care Team (Late st Contact Info) Description 09/24/2024 8:15 AM EST Appointment [facility] Nuclear Medicine [address] [place] [address] 10/21/2024 8:00 AM EST Appointment [facility] Xray [address] [place] [address] 10/29/2024 8:45 AM EST Office Visit Obstetrics and Gynecology [facility] [address] [place] [address] Doris Gonzales, [facility] [address] [place] [address] 10/30/2024 1:15 PM EST Office Visit Adult Medicine [facility] [address] [place] [address] Loida Izaguirre MD [address] [place] [id number] 10/31/2024 9:00 AM EST Office Visit Thoracic Surgery - [place] 299 [facility] [address] [place] [phone] Cheri Beck MD 299 [facility] [address] [place] [address] 11/20/2024 9:10 AM EDT Office Visit Pulmonolgy - [place] 175 [facility] [address] [place] [phone] Cynthia Dc, SILVICULTURE TEACHER 175 [facility] [address] [place] [address] documented as of this encounter Visit Diagnoses Diagnosis Chronic obstructive pulmonary disease with acute lower respiratory infection (CMS/HCC)- Primary Non-seasonal allergic rhinitis due to other allergic trigger Moderate obstructive sleep apnea Pulmonary nodules Other diseases of lung, not elsewhere classified Rheumatoid arthritis, involving unspecified site, unspecified whether rheumatoid factor present (CMS/HCC) Overweight (BMI 25.0-29.9) Overweight documented in this encounter Discontinued Medications Medication Sig Discontinue Reason Start Date End Da te loratadine (CLARITIN) 10 mg tablet Take 1 tablet (10 mg total) by mouth 1 (one) time each day. Reorder 06/08/2023 08/22/2024 albuterol HFA (Ventolin HFA) 90 mcg/actuation inhaler INHALE 2 PUFFS INTO THE LUNGS EVERY 4 HOURS NEEDED FOR COUGH OR WHEEZING. Reorder 09/04/2023 08/22/2024 umeclidinium-vilantero L (Anoro Ellipta) 62.5-25 mcg/actuation inhaler Inhale 1 Puff into the lungs daily. Reorder 06/30/2023 08/22/2024 montelukast (SINGULAIR) 10 mg tablet Sig: TAKE 1 TABLET BY MOUTH AT BEDTIME Sent to pharmacy as: Montelukast Sodium 10 MG Oral Tablet (SINGULAIR) Reorder 08/22/2024 documented as of this encounter Orders General Supply Count Last Ordered Date First Or dered Date CPAP DME 1 08/22/2024 documented in this encounter Care Teams Transformer Coil Winder Relationship Specialty Start Date End Date Loida Izaguirre MD [address] [place] [address] PCP - General Internal Medicine 09/01/21 documented as of this encounter
--- OUTSIDE RECORDS SUMMARY | 2024-09-18 09:08 | XMS_ITS | Encounter Summary ---
Author Organization [facility] Address [address] [place] [address] Care Team Providers Care Winter Sports Manager Name Role Phone Loida Izaguirre MD Primary Care Provider [phone] Encounter Details Date Type Department Care Team (Late Contact Info) Description 08/30/2024 Telephone Thoracic Surgery - [address] [phone] Viviana Allen MA Social History Tobacco Use Types Packs/Day Years [...] as of this encounter Progress Notes * Viviana Allen MA - 08/30/2024 1:35 PM EST Monday09/24/2024 Gastric Emptying Study is booked. Monday10/21/2024 Barium Swallow is booked. Both appointments is NPO MIDNIGHT prior to these appointments. Appointment info sent in letter to patient, with instructions. documented in this encounter Plan of Treatment Upcoming Encounters Date Type Department Care Team ([facility] Contact Info) Description 09/24/2024 8:15 AM EST Appointment [facility] Nuclear Medicine [address] [place] [address] 10/21/2024 8:00 AM EST Appointment [facility] Xray [address] [place] [phone] 10/29/2024 8:45 AM EST Office Visit Obstetrics and Gynecology - [place] [address] [place] [address] Doris Gonzales, [facility] [address] [place] [address] 10/30/2024 1:15 PM EST Office Visit Adult Medicine [facility] [address] [place] [address] Loida Izaguirre MD [address] [place] [address] 10/31/2024 9:00 AM EST Office Visit Thoracic Surgery - [place] [address] [facility] [address] [place] [address] Cheri Beck MD [address] [address] 11/20/2024 9:10 AM EDT Office Visit Pulmonolgy - [place] [address] [facility] [address] [place] [phone] Cynthia Dc NP 175 [facility] [address] [place] [address] documented as of this encounter Visit Diagnoses Not on filedocumented in this encounter Care Teams Winter Sports Manager Relationship Specialty Start Date End Date Loida Izaguirre MD [address] [place] [address] PCP - General Internal Medicine 09/01/21 documented as of this encounter
--- OUTSIDE RECORDS SUMMARY | 2024-09-18 09:08 | XMS_ITS | Data Portability ---
Author Organization [facility], [id number] Address [address] [place] [address] Assessment No assessment recorded. Plan of Treatment Reminders Order Date Submit Date Provider Last Modified By Organization Details Last Modified Time Details Appointments None record ed. Lab None record ed. Referral None record ed. Procedures None record ed. Surgeries None record ed. Imaging None record ed. Medication Orders None record ed. Patient TargetsNo targets recorded. Patient InstructionsNo instructions recorded. Reason for Referral None Reported. Procedures Surgical History Date Name Laterality Status Provider Name and Address Organization Details Recorded Time OC-UDS Send Out Template NON DOT completed [facility]O [facility] 02/24/2023 10:25:52 Imaging Results None recorded. Procedure Notes None recorded. Medical Equipment None Reported. Medications Name Sig Start Date Stop Date Status Note LastModified by Organization Details LastModified Time venlafaxine ER 37.5 mg capsule,exte nded release 24 hr TAKE 1 CAPSULE BY MOUTH ONCE A DAY WITH 150 MG CAPSULE FOR TOTAL DOSE = 187.5 MG active Not Available Not Available N ot Available prednisone 10 mg tablet PLEASE SEE ATTACHED FOR DETAILED DIRECTIONS active Not Available Not Available N ot Available Carafate 100 mg/mL oral suspension TAKE 10 ML BY MOUTH 4 TIMES DAILY (BEFORE MEALS AND NIGHTLY). active Not Available Not Available No t Available metoprolol tartrate 100 mg tablet TAKE 1 TABLET BY MOUTH EVERY DAY active Not Available Not Available No t Available meloxicam 15 mg tablet TAKE 1 TABLET BY MOUTH ONCE DAILY WITH FOOD active Not Available Not Available No t Available prednisone 20 mg tablet TAKE 1 TABLET BY MOUTH TWICE A DAY FOR 5 DAYS active Not Available Not Available No t Available clonazepam 0.5 mg tablet TAKE 1 TABLET BY MOUTH TWICE A DAY NEEDED FOR ANXIETY/INS OMNIA active Not Available Not Available No t Available methylpredni solone 4 mg tablet PLEASE SEE ATTACHED FOR DETAILED DIRECTIONS active Not Available Not Available N ot Available venlafaxine ER 150 mg capsule,exte nded release 24 hr TAKE 1 CAPSULE BY MOUTH EVERY DAY IN THE MORNING active Not Available Not Available No t Available leflunomide 10 mg tablet active Not Available Not Available Not Available omeprazole 40 mg capsule,abbi yed release PLEASE SEE ATTACHED FOR DETAILED DIRECTIONS active Not Available Not Available N ot Available leflunomide 20 mg tablet TAKE 1 TABLET BY MOUTH EVERY DAY active Not Available Not Available No t Available methotrexate sodium 2.5 mg tablet TAKE 5 TABLETS BY MOUTH ONCE A WEEK active Not Available Not Available No t Available amlodipine 10 mg tablet TAKE 1 TABLET BY MOUTH EVERY DAY active Not Available Not Available No t Available benzonatate 100 mg capsule TAKE 1 CAPSULE BY MOUTH 3 TIMES DAILY NEEDED FOR COUGH FOR UP TO 10 DAYS. active Not Available Not Available No t Available diclofenac sodium 75 mg tablet,delay ed release PLEASE SEE ATTACHED FOR DETAILED DIRECTIONS active Not Available Not Available N ot Available folic acid 1 mg tablet TAKE 1 TABLET BY MOUTH EVERY DAY active Not Available Not Available No t Available losartan 100 mg tablet TAKE 1 TABLET BY MOUTH EVERY DAY active Not Available Not Available No t Available fluticasone propionate 50 mcg/actuatio n nasal spray,suspen jarred USE 1 SPRAY INTRANASALL Y ONCE A DAY active Not Available Not Available No t Available loratadine 10 mg tablet TAKE 1 TABLET BY MOUTH EVERY DAY active Not Available Not Available No t Available Ventolin HFA 90 mcg/actuatio n aerosol inhaler INHALE 2 PUFFS INTO THE LUNGS EVERY 6 HOURS NEEDED FOR COUGH, WHEEZING OR SHORTNESS OF BREATH. active Not Available Not Available N ot Available rosuvastatin 5 mg tablet TAKE 1 TABLET BY MOUTH EVERY DAY active Not Available Not Available No t Available diclofenac 1 % topical gel APPLY 1 GRAM TOPICALLY 4 TIMES A DAY NEEDED FOR PAIN active Not Available Not Available No t Available Anoro Ellipta 62.5 mcg-25 mcg/actuatio n powder for inhalation TAKE 1 PUFF BY MOUTH EVERY DAY active Not Available Not Available No t Available Paxlovid 300 mg (150 mg x 2)-100 mg tablets in a dose pack TAKE 3 TABLETS BY MOUTH TWICE DAILY FOR 5 DAYS active Not Available Not Available No t Available Vitals None Recorded Social History None recorded. Functional Status None recorded. Mental Status None recorded. Family History Nothing Reported. Medical History No medical history recorded. Gynecological HistoryNo gynecological history recorded. Obstetrics History GPAL:G 0 P 0 0 0 0 Past Encounters Encounter ID Performer Location Encounter Start Date Encounter Closed Date Diagnosis/Indication Diagnosis SNOMED-CT Code Diagnosis ICD10 Code Diagnosis Note [id number] [address] [place] [address] 05/19/2021 11:04:13 05/19/2021 12:17:12 [id number] [address] [place] [phone] 01/17/2022 10:00:57 01/17/2022 13:05:48 [id number] [address] [place] [address] [address] 04/18/2018 17:30:04 04/18/2018 18:38:53 [id number] [address] [place] [phone] 03/09/2019 11:07:32 03/09/2019 12:09:16 [id number] IS[facility] PACE [address] [place] [address] 02/24/2023 09:37:25 02/24/2023 10:26:41 History and physical examination, occupation 609196758 Z02.1 Health Concerns Section Related Observation LastModified by Organization Detai ls LastModified Time None Recorded Concern Status LastModified by Organization Details LastModified Time None Recorded Advance Directives Directive None Recorded Payers Encounter Date Sequence Insurance Name Policy Number Policy White Covered Member ID White Member ID Guarantor Name 04/18/[address] [facility] (MEDICAID REPLACEMENT - HMO) JUAN CARLOS Matt [id number] Christine Matt 05/19/[address] [facility] (MEDICAID REPLACEMENT - HMO) JUAN CARLOS Matt [id number] Christine Matt 01/17/[address] [facility] (MEDICAID REPLACEMENT - HMO) JUAN CARLOS Matt [id number] Christine Matt 02/24/2023 OC-ESCREEN Christine Matt [id number] Khoi Matt OBGyn Episode No OBEpisode recorded.
--- OUTSIDE RECORDS SUMMARY | 2024-09-18 09:08 | XMS_ITS | Clinical Summary ---
Author Organization [facility] [address] [place] [address] Address [address] [facility] [place] Phone Care Team Providers Care Highway Maintenance Technician Name Role Phone Loida Izaguirre MD Primary Care Provider [phone] Allergies Active Allergy Reactions Criticality Noted Date Comments Interferons 02/19/2021 Methotrexate Hives 07/11/2022 Other Hives High 05/09/2018 Interferon Abdiel Sulfate Ion Hives Low 05/09/2018 Medications Medication Sig Dispensed Refills Start Date End Date Status omeprazole (PriLOSEC) [address] capsule TAKE 1 CAPSULE BY MOUTH DAILY. TAKE ON EMPTY STOMACH, WAIT 30 MINUTES AND THEN EAT TO ACTIVATE MEDICATION. 4 Active losartan (COZAAR) 100 mg tablet Take 1 tablet (100 mg total) by mouth 1 (one) time each day. 4 Active metoprolol tartrate (LOPRESSOR) 100 mg tablet Take 1 tablet (100 mg total) by mouth 1 (one) time each day. 4 Active rosuvastatin (CRESTOR) 5 mg tablet Take 1 tablet (5 mg total) by mouth 1 (one) time each day. 4 Active amLODIPine (NORVASC) 10 mg tablet Take 1 tablet (10 mg total) by mouth 1 (one) time each day. 4 Active sucralfate (CARAFATE) 1 gram tablet Take 1 Tablet by mouth 4 times daily. 4 Active famotidine (PEPCID) 20 mg tablet Take 1 Tablet by mouth 2 times daily as needed for Heartburn. 4 Active adalimumab (Humira,CF, Pen) 40 mg/0.4 mL pen Inject into the skin every 14 days. Active medical supply, miscellaneous (MISCELLANEOUS MEDICAL SUPPLY [facility]) [facility]. Devices (Fingertip Pulse Oximeter) [facility] Sig - Route: 1 Device by Does not apply route as needed for Other (shortness of breath). - Does not apply Sent to pharmacy as: Fingertip Pulse Oximeter 2 Active clonazePAM (KlonoPIN) 0.5 mg tablet Take 0.5 mg by mouth at bedtime as needed. Active venlafaxine XR (EFFEXOR-XR) 150 mg 24 hr capsule Take 150 mg by mouth daily. Active aspirin 81 mg EC tablet TAKE 1 TABLET BY MOUTH EVERY DAY 90 tablet 1 4 Active montelukast (SINGULAIR) 10 mg tabletIndications :Non-seasonal allergic rhinitis due to other allergic trigger Take 1 tablet (10 mg total) by mouth at bedtime. Sig: TAKE 1 TABLET BY MOUTH AT BEDTIME 90 tablet 3 4 Active loratadine (CLARITIN) 10 mg tabletIndications :Non-seasonal allergic rhinitis due to other allergic trigger Take 1 tablet (10 mg total) by mouth 1 (one) time each day. 90 tablet 3 4 08/22/20 25 Active umeclidinium-stacey nteroL (Anoro Ellipta) 62.5-25 mcg/actuation inhalerIndication s:Chronic obstructive pulmonary disease with acute lower respiratory infection (CMS/HCC) Inhale 1 puff by mouth 1 (one) time each day. 3 each 3 4 Active albuterol HFA (Ventolin HFA) 90 mcg/actuation inhalerIndication s:Chronic obstructive pulmonary disease with acute lower respiratory infection (CMS/HCC) Inhale 2 puffs by mouth every 4 (four) hours if needed for wheezing. 54 g 3 4 Active diclofenac (VOLTAREN) 1 % topical gel APPLY 1 GRAM TOPICALLY 4 TIMES DAILY NEEDED (PAIN). 400 g 1 5 Active loratadine (CLARITIN) 10 mg tablet Take 1 tablet (10 mg total) by mouth 1 (one) time each day. 3 08/22/20 24 Discontinued(Reo rder) diclofenac (VOLTAREN) 1 % topical gel APPLY 1 G TOPICALLY 4 TIMES DAILY NEEDED (PAIN). 4 09/16/19 25 Discontinued albuterol HFA (Ventolin HFA) 90 mcg/actuation inhaler INHALE 2 PUFFS INTO THE LUNGS EVERY 4 HOURS NEEDED FOR COUGH OR WHEEZING. 4 08/22/20 24 Discontinued(Reo rder) umeclidinium-stacey nteroL (Anoro Ellipta) 62.5-25 mcg/actuation inhaler Inhale 1 Puff into the lungs daily. 3 08/22/20 24 Discontinued(Reo rder) montelukast (SINGULAIR) 10 mg tablet Sig: TAKE 1 TABLET BY MOUTH AT BEDTIME Sent to pharmacy as: Montelukast Sodium 10 MG Oral Tablet (SINGULAIR) 08/22/20 24 Discontinued(Reo rder) azithromycin (ZITHROMAX) 250 mg tabletIndications :Chronic obstructive pulmonary disease with acute lower respiratory infection (CMS/HCC) Take 2 tablets (500 mg total) by mouth 1 (one) time each day for 1 day, THEN 1 tablet (250 mg total) 1 (one) time each day for 4 days. 6 each 4 08/27/20 24 predniSONE (DELTASONE) 10 mg tabletIndications :COPD exacerbation,asth ma exacerbation Take 4 tablets (40 mg total) by mouth 1 (one) time each day for 3 days, THEN 3 tablets (30 mg total) 1 (one) time each day for 3 days, THEN 2 tablets (20 mg total) 1 (one) time each day for 3 days, THEN 1 tablet (10 mg total) 1 (one) time each day for 3 days. 30 each 4 09/03/19 25 Active Problems Problem Noted Date Diagnosed Date Internal hemorrhoids 05/29/2024 Congenital diaphragmatic hernia 05/15/2023 Overview (05/29/2024): Last Assessment & Plan: She does also have a Bochdalek hernia on the right which I explained to her and showed her on a model where this was and what this means. I think it is very unlikely this is related to any symptoms that she has just seems to be fat-containing. In and of itself I do not think there is an indication to fix this but if she wanted to have it fixed that certainly could be done. If she does end up getting a Belen fundoplication then this can be looked at at that time to possibly fix it that as well. All questions were answered. Hiatal hernia 05/15/2023 Sarcoid 09/01/2022 Microalbuminuria 01/06/2022 COPD (chronic obstructive pulmonary disease) 05/2022 Obesity (BMI 30.0-34.9) 01/04/2022 Hyperlipidemia 05/29/2020 Overview (05/29/2024): Last Assessment & Plan: Reviewed patient's cholesterol panel from December 2020 and she has excellent control. She will continue on her cholesterol medicine. Importance of heart healthy diet and exercise was discussed. Left carpal tunnel syndrome 05/29/2020 Prediabetes 09/26/2019 Overview (05/29/2024): Hba1c- 5.7 08/2019 Subclinical hypothyroidism 05/20/2019 Abnormal brain MRI 04/22/2019 Overview (05/29/2024): 03/15. Dr. Zimmerman: microvascular disease, ectatic left vertebral artery Ataxia 04/22/2019 Overview (05/29/2024): On clonazepam, sees Dr. Zimmerman Pending EEG and MONIKA Cerebral microvascular disease 04/17/2019 Overview (05/29/2024): Dr. Zimmerman Complex ovarian cyst 10/18/2018 Raynaud's phenomenon 10/18/2018 Spinal stenosis 10/18/2018 Constipation 10/08/2018 Anxiety 05/09/2018 Chronic hepatitis C 05/09/2018 Overview (05/29/2024): Currently treated at [facility] in [place]. Negative titers 05/2018 Colon polyps 05/09/2018 Depression 05/09/2018 Overview (05/29/2024): Follows with psychiatrist in [place] Taking effexor for 14 yrs GERD (gastroesophageal reflux disease) 8 Overview (05/29/2024): Last Assessment & Plan: 53-year-old woman with longtime reflux on omeprazole and Carafate still with symptoms of heartburn. I had a long discussion with her about the findings from her CAT scan including the small sliding hiatal hernia and the separate right-sided Bochdalek hernia that is fat-containing. I do not think that her reflux symptoms are related in any way to the Bochdalek hernia. She does want to explore the possibility of antireflux surgery which would be a Belen fundoplication. We did discuss how this is done briefly but prior to this we will plan on doing a barium study, gastric emptying test, pH testing, and manometry. pH testing would be better done off of her medication. We will set the studies up and she will come back to the office after they are done to discuss surgery further depending on the results. All questions were answered regarding this. HTN (hypertension) 05/09/2018 Overview (05/29/2024): Last Assessment & Plan: Patient's blood pressure is well controlled today. Continue on current medication regimen. Psoriasis 05/09/2018 Overview (05/29/2024): On topical steroid PTSD (post-traumatic stress disorder) 05/09/2018 Foot fracture, right 04/18/2018 Encounters Date Type Department Care Team Description 08/30/2024 Telephone Thoracic Surgery - [place] 299 [facility] [address] [place] [phone] Viviana Allen MA 08/26/2024 Telephone Pulmonolgy [facility] 175 [facility] [address] [place] [phone] Jeaneth South MA prior auth 08/22/2024 8:50 AM EST Office Visit Pulmonolgy [facility] [address] [facility] [address] [place] [phone] Cynthia Dc, JJ Chronic obstructive pulmonary disease with acute lower respiratory infection (CMS/HCC) (Primary Dx); Non-seasonal allergic rhinitis due to other allergic trigger; Moderate obstructive sleep apnea; Pulmonary nodules; Rheumatoid arthritis, involving unspecified site, unspecified whether rheumatoid factor present (CMS/HCC); Overweight (BMI 25.0-29.9) 08/22/2024 Telephone Pulmonolgy - [place] 175 [facility] [address] [place] [address] Jeaneth South [place] DME request (Original CPAP) 08/05/2024 Telephone Lung Screening Program - [place] 299 [facility] [address] [place] [address] Goldie Yip MA from Last 3 Months Immunizations Name Administration Dates Next Due Influenza Quadravalent, MDCK , 0.5ml, preservative free (Flucelvax) 6mo and older 05/12/2020,09/02/2019,05/09/2018 Influenza trivalent, with pr eservative (Fluzone; Afluria) 6mo and older 07/12/2022,07/31/2017,06/21/2016 MMR, measles mumps and rubel la Live (Priorix; M-M-R II) 12mo and older 10/07/2016 Moderna SARS-CoV-2 COVID-19, mRNA, LNP-S, preservative free 07/12/2022 Pneumococcal polysaccharide 23 valent (Pneumovax 23) 2yo and older 10/07/2016 Td Tetanus diptheria (Tdvax) 7yo and older 09/10 Surgical History Surgery Date Site/Laterality Comments KNEE SURGERY Left PROCEDURE: HISTORICAL KNEE SURGERY; COMMENT: age 13 ANKLE SURGERY Right PROCEDURE: HISTORICAL ANKLE SURGERY; COMMENT: internal fixation--- pin removed later HAND SURGERY Right PROCEDURE: HISTORICAL HAND SURGERY; COMMENT: carpal tunnel and trigger finger TUBAL LIGATION PROCEDURE: HISTORICAL TUBAL LIGATION OOPHORECTOMY Right PROCEDURE: HISTORICAL OOPHORECTOMY; COMMENT: for cyst COLONOSCOPY PROCEDURE: HISTORICAL COLONOSCOPY; COMMENT: 2010 with polyps COLONOSCOPY 08/2019 PROCEDURE: HISTORICAL COLONOSCOPY; COMMENT: Performed September 24 with along with EGD-repeat colonoscopy in 10 years ESOPHAGOGASTRODUODENOSCOPY 08/2019 PROCEDURE: ID EGD TRANSORAL BIOPSY SINGLE/MULTIPLE; COMMENT: Performed with colonoscopy on September 24-with Dr. Cruz. Positive for erythema and antrum and duodenum BREAST BIOPSY PROCEDURE: BX BREAST; PERC NEEDLE CORE W/IMAG GUID ESOPHAGOGASTRODUODENOSCOPY 12/23/2020 PROCEDURE: ID EGD TRANSORAL BIOPSY SINGLE/MULTIPLE; COMMENT: Visually normal; mapping biopsies done to evaluate intestinal metaplasia of the gastric mucosa. Pathology: Normal, no intestinal metaplasia. ESOPHAGOGASTRODUODENOSCOPY PROCEDURE: ID EGD TRANSORAL BIOPSY SINGLE/MULTIPLE; COMMENT: Formed on December 23, 2020 CARPAL TUNNEL RELEASE 02/08/2021 Left PROCEDURE: ID NEUROPLASTY &/TRANSPOS MEDIAN NRV CARPAL TUNNE; COMMENT: with Dr. Steve Wyatt Medical History Medical History Date Comments Spinal stenosis 10/18/2018 DX:Spinal stenos is Raynaud's phenomenon 10/18/2018 DX:Raynaud' s phenomenon PTSD (post-traumatic stress disorder) 05/09/2018 DX:PTSD (post-traumatic stress disorder) Psoriasis 05/09/2018 DX:Psoriasis; CO MMENT: On topical steroid Macromastia 09/25/2018 DX:Macromastia Intertrigo 09/25/2018 DX:Intertrigo HTN (hypertension) 05/09/2018 DX:HTN (hyper tension) GERD (gastroesophageal reflu x disease) 05/09/2018 DX:GERD (gastroesophageal re flux disease) Foot fracture, right 04/18/2018 DX:Foot fra cture, right Depression 05/09/2018 DX:Depression; C OMMENT: Follows with psychiatrist in [place] Taking effexor for 14 yrs Constipation 10/08/2018 DX:Constipation Colon polyps 05/09/2018 DX:Colon polyps Chronic neck and back pain 09/25/2018 DX:Ch ronic neck and back pain Chronic hepatitis C (CMS/HCC) 05/09/2018 DX :Chronic hepatitis C (HCC); COMMENT: Currently treated at [facility] in [place]. Negative titers 05/2018 Anxiety 05/09/2018 DX:Anxiety Complex ovarian cyst 10/18/2018 DX:Complex ovarian cyst Subclinical hypothyroidism 05/20/2019 DX:Pantoja bclinical hypothyroidism Gastritis DX:Gastritis Internal hemorrhoids DX:Internal hemorrhoids Epigastric pain DX:Epigastric pa in Nausea DX:Nausea COPD (chronic obstructive pu lmonary disease) (CMS/HCC) 01/04/2022 DX:COPD (chronic obstructive pulmonary disease) (HCC) Hyperlipidemia 05/29/2020 DX:Hyperlipidemi a Sarcoid 09/01/2022 DX:Sarcoid Rheumatoid arthritis (CMS/HCC) D X:Rheumatoid arthritis (HCC) Sarcoidosis DX:Sarcoidosis Family History Medical History Relation Name Comments Other: homicide Brother Diabetes Father Hypertension, H ypothyroid Heart attack Maternal Grandfather No Known Problems Maternal Grandmother Alcohol/Drug Mother No Known Problems Paternal Grandfather Brain Aneurysm Paternal Grandmother Breast cancer Neg Hx Relation Name Status Comments Brother Father Alive Maternal Grandfather Maternal Grandmother Mother Alive Paternal Grandfather Paternal Grandmother Social History Tobacco Use Types Packs/Day Years [...] file Not on file Not on file Obstetrics History Last Filed Vital Signs Vital Sign Reading [...] Mass Index 29.41 08/22/2024 8:56 AM EST Plan of Treatment Upcoming Encounters Date Type Department Care Team (Late st Contact Info) Description 09/24/2024 8:15 AM EST Appointment [facility] Nuclear Medicine [address] [place] [address] 10/21/2024 8:00 AM EST Appointment [facility] Xray [address] [place] [address] 10/29/2024 8:45 AM EST [facility] [address] [place] [phone] Doris Gonzales, CN [address] [place] [address] 10/30/2024 1:15 PM EST Office Visit Adult Medicine [facility] [address] [place] [address] Loida Izaguirre MD [address] [place] [address] 10/31/2024 9:00 AM EST Office Visit Thoracic Surgery - [place] 299 [facility] [address] [place] [address] Cheri Beck MD 299 [facility] [address] [place] [address] 11/20/2024 9:10 AM EDT Office Visit Pulmonolgy - [place] 175 [facility] [address] [place] [address] Cynthia Dc NP 175 [facility] [address] [place] [address] Health Maintenance Due Date Last Done Comments Hepatitis B Vaccines (1 of 3 - 19+ 3-dose series) 01/21/1988 Pneumococcal Vaccine: Pediatrics (0 to 5 Years) and At-Risk Patients (6 to 64 Years) (2 of 2 - PCV) 10/07/2017 10/07/2016 Zoster Vaccines (1 of 2) 2019 HIV Screening 08/06/2022 Social Influencers of Health Screening 08/06/2022 COVID-19 Vaccine (2 - Moderna risk series) 08/09/2022 07/12/2022 Influenza Vaccine (#1) 2024 2, 05/12/2020, 09/02/2019, Additional history exists Colorectal Cancer Screening: Colonoscopy 09/24/2024 09/24/2019 Breast Cancer Screening 02/27/2025 02/28/20 23, 02/25/2022, 06/13/2020, Additional history exists Depression Screening 05/01/2025 05/01/2024 Hypertension/CHF/CAD Annual BMP Blood Test 05/01/2025 05/01/2024, 05/01/2024 Cervical Cancer Screening: HPV 09/01/2025 09/01/2020 DTaP,Tdap,and Td Vaccines (2 - Td or Tdap) 09/10/2028 09/10/2018 Cholesterol Screening (Lipid Panel) 05/01/2029 05/01/2024, 05/01/2024 MMR Vaccines Aged Out 10/07/2016 No longer eligi ble based on patient's age to complete this topic Hepatitis C Screening Completed 07/15/2019 HIB Vaccines Aged Out No longer eligi ble based on patient's age to complete this topic HPV Vaccines Aged Out No longer eligi ble based on patient's age to complete this topic Hepatitis A Vaccines Aged Out No long er eligible based on patient's age to complete this topic IPV Vaccines Aged Out No longer eligi ble based on patient's age to complete this topic Meningococcal ACWY Vaccine Aged Out N o longer eligible based on patient's age to complete this topic RSV Immunization Patients Under 20 months Aged Out No longer eligible based on patient's age to complete this topic Varicella Vaccines Aged Out No longer eligible based on patient's age to complete this topic Procedures Procedure Name Priority Date/Time Associated Diagnosis Comments ID SLEEP STUDY ATTENDED 08/22/2024 ID SLEEP STUDY ATTENDED 07/30/2024 DEPRESSION SCREENING Routine 05/01/2024 ANNUAL BMP BLOOD TEST Routine 05/01/2024 LIPID PANEL Routine 05/01/2024 SCREENING MAMMOGRAPHY BI 2-VIEW BREAST INC CAD Routine 02/27/2023 7:52 AM EDT Encounter for other screening for malignant neoplasm of breast HPV Routine 09/01/2020 COLONOSCOPY Routine 09/24/2019 HEPATITIS C SCREENING Routine 07/15/2019 from Last 3 Months or Most Recently Relevant to Health Maintenance Results * General sleep study (08/22/2024) Provider [facility] ORD ERABLES * General sleep study (07/30/2024) Provider [facility] ORD ERABLES * Annual BMP Blood Test (05/01/2024) Pathologist Counts include 234 beds at the [facility] Annual BMP Blood Test abstracted Historical Provider [facility] * Depression Screening (05/01/2024) [facility] Depression Screening abstracted Historical Provider [facility] Lipid panel (05/01/2024) [facility] LDL/HDL Ratio 3 0 - 4 Triglycerides 117 0 - 150 mg/dL Cholesterol 156 0 - 200 mg/dL HDL 59 40 mg/dL LDL Cholesterol 74 0 - 100 mg/dL Blood Venous blood specimen / Unknown Historical Provider LAB BLOOD ORDERAB LES * SCREENING MAMMOGRAPHY BI 2-VIEW BREAST INC CAD (02/27/2023 7:52 AM EDT) Anatomical Region Laterality Modality Radiographic Mercedez ging 02/25/2022 3:38 PM EDT Narrative 02/27/2023 9:45 AM EDT This is a summary report. The complete report is available in the patient's medical record. If you cannot access the medical record, please contact the sending organization for a detailed fax or copy. Full field digital screening tomosynthesis mammography, reviewed with CAD and compared to previous. The breasts are composed of fatty and fibroglandular tissue. ??There is sequela of breast reduction mammoplasty. ??No suspicious mass, architectural distortion or suspicious calcifications are identified. IMPRESSION: : No mammographic evidence of malignancy. BIRADS 1-Negative; N. 5 year breast cancer risk assessment 0.8 % Lifetime breast cancer risk assessment 6.1 % Breast cancer risk category Low (<15%) Procedure Note Jing Hancock MD - 10/02/2023 This is a summary report. The complete report is available in thepatient's medical record. If you cannot access the medical record, pleasecontact the sending organization for a detailed fax or copy. Full field digital screening tomosynthesis mammography, reviewed with CADand compared to previous. The breasts are composed of fatty andfibroglandular tissue. There is sequela of breast reduction mammoplasty.No suspicious mass, architectural distortion or suspicious calcificationsare identified. IMPRESSION: : No mammographic evidence of malignancy. BIRADS 1-Negative; N. 5 year breast cancer risk assessment 0.8 % Lifetime breast cancer risk assessment 6.1 % Breast cancer risk category Low (<15%) Luma Gonzalez DO IMG XR PROCEDURES * Cervical Cancer Screening: HPV (09/01/2020) [facility] Cervical Cancer Screening: HPV negative, abstracted Historical Provider MD NA AYALA E * Colonoscopy (09/24/2019) [facility] Colonoscopy no interpretation , abstracted Anatomical Region Laterality Modality Other Historical Provider MD NA AYALA E * Hepatitis C Screening (07/15/2019) [facility] Hepatitis C Screening abstracted Historical Provider MD NA Carranza from Last 3 Months or Most Recently Relevant to Health Maintenance Care Teams Highway Maintenance Technician Relationship Specialty Start Date End Date Loida Izaguirre MD [address] [place] [address] PCP - General Internal Medicine 09/01/21
== END 2024-09-18 09:35 | disposition home or self-care (01) ==
PROVIDERS: PCP Internal Medicine; Visit Provider Internal Medicine Rheumatology
DX: L40.50 Arthropathic psoriasis, unspecified (principal); Z79.899 Other long term (current) drug therapy
CPT/HCPCS: 99214; G2211

== ENCOUNTER 2024-09-18 08:52 | Outpatient (REF) | payer OTHER, SELFPAY ==
[2024-09-18 17:42] LABS: MANUAL DIFF FLAG NO
[2024-09-18 17:45] LABS: Basophils Absolute Auto 0.1 X10*3/uL (0.0-0.2); Basophils Percent Auto 0.6 % (0-2); Eosinophils Absolute Auto 0.5 X10*3/uL (0.0-0.4); Eosinophils Percent Auto 6.1 % (0-4); Hematocrit 40.2 % (37.0-47.0); Hemoglobin 13.7 g/dl (12.0-16.0); Imm Gran Abs Auto 0.03 X10*3/uL (0.00-0.03); Imm Gran Pct Auto 0.4 % (0.0-0.4); Lymphocytes Absolute Auto 2.7 X10*3/uL (1.2-4.9); Lymphocytes Percent Auto 31.2 % (20-40); Mean Corpuscular HGB Conc 34.1 g/dl (31.0-35.0); Mean Platelet Volume 9.3 fL (9.4-12.3); Monocytes Absolute Auto 0.8 X10*3/uL (0.1-1.2); Monocytes Percent Auto 9.7 % (2-11); Neutrophils Absolute Auto 4.4 x10*3/uL (2.0-8.3); Platelet Count 280 X10*3/uL (160-400); Red Blood Count 4.73 X10*6/uL (4.20-5.50); Red Cell Distribution Width 13.6 % (11.0-16.0); White Blood Count 8.5 X10*3/uL (4.8-10.8)
[2024-09-18 17:57] LABS: Alanine Aminotransferase 16 U/L (0-31); Aspartate Amino Transferase 32 U/L (5-31); C Reactive Protein 0.15 mg/dL (< or = 0.50); Estimated Glomerular Filt Rate > 60
[2024-09-18 18:43] LABS: Erythrocyte Sedimentation Rate 13 MM/HR (0-20)
[2024-09-19 08:05] LABS: HBS Num1 1.61 mIU/mL (0-7.99); HBc Num1 0.11 S/CO (0.00-0.79); HBsAGNum1 0.41 S/CO (0.00-0.99); Hepatitis B Core Antibody Nonreactive (Nonreactive); Hepatitis B Surface Antigen Negative (Negative); ~HepC Num1 15.53 S/CO (0.00-0.79); ~Hepatitis B Surface Antibody NONREACTIVE (Nonreactive); ~Hepatitis C Antibody Reactive (Nonreactive)
[2024-09-21 20:23] LABS: TS Negative Control Passed; TS Panel A 0; TS Panel B 0; TS Positive Control Passed; TSpotTB Negative (Negative)
== END 2024-09-18 08:53 | disposition home or self-care (01) ==
LOC: HO.HKASLDS 08:52
PROVIDERS: PCP Internal Medicine; Visit Provider Internal Medicine Rheumatology
DX: L40.50 Arthropathic psoriasis, unspecified (principal); Z79.60 Long term (current) use of unspecified immunomodulators and immunosuppressants; Z79.899 Other long term (current) drug therapy
CPT/HCPCS: 36415; 82565; 84450; 84460; 85025; 85652; 86140; 86481; 86704; 86706; 86803; 87340; 99212

== ENCOUNTER 2024-09-26 13:18 | Outpatient (REF) | payer OTHER, SELFPAY ==
[2024-09-26 15:01] LABS: Alanine Aminotransferase 24 U/L (0-31); Albumin Level 4.3 g/dL (3.5-5.0); Alkaline Phosphatase 122 U/L (39-117); Aspartate Amino Transferase 31 U/L (5-31); Bilirubin Direct 0.1 mg/dL (0.0-0.5); Bilirubin Total 0.3 mg/dL (0.0-1.0); Total Protein 7.8 g/dL (6.5-8.0)
[2024-09-26 15:30] LABS: Vitamin B12 879 pg/mL (200-900)
--- OUTSIDE RECORDS SUMMARY | 2024-09-26 17:12 | XMS_ITS | Encounter Summary ---
Author Organization [facility] Address [address] [place] [address] Care Team Providers Care Track Broom Operator Name Role Phone Loida Izaguirre MD Primary Care Provider [phone] Encounter Details Date Type Department Care Team (Late Contact Info) Description 08/30/2024 Telephone Thoracic Surgery - [place] [address] [phone] Viviana Allen MA Social History Tobacco Use [...] Upcoming Encounters Date Type Department Care Team ([facility] Contact Info) Description 10/21/2024 8:00 AM EST Appointment [facility] Xray [address] [place] [address] 10/29/2024 8:45 AM EST Office Visit Obstetrics and Gynecology [facility] [address] [place] [address] Doris Gonzales, [facility] [address] [place] [address] 10/30/2024 1:15 PM EST Office Visit Adult Medicine [facility] [address] [place] [address] Loida Izaguirre MD [address] [place] [address] 10/31/2024 9:00 AM EST Office Visit Thoracic Surgery [facility] 299 [facility] [address] [place] [address] Cheri Beck MD 299 [facility] [address] [place] [address] 11/20/2024 9:10 AM EDT Office Visit Pulmonolgy [facility] 175 [facility] [address] [place] [address] Cynthia Dc NP 175 [facility] [address] [place] [address] documented as of this encounter Visit Diagnoses Not on filedocumented in this encounter Care Teams Track Broom Operator Relationship Specialty Start Date End Date Loida Izaguirre MD [address] [place] [id number] PCP - General Internal Medicine 09/01/21 documented as of this encounter
--- OUTSIDE RECORDS SUMMARY | 2024-09-26 17:12 | XMS_ITS | Data Portability ---
Author Organization ISIDRO Rodriguez [facility], [address] Address [address] [place] [address] Assessment No assessment recorded. Plan of Treatment [...] Out Template NON DOT completed YO Rodriguez [facility] 02/24/2023 10:25:52 Imaging Results None recorded. [...] SNOMED-CT Code Diagnosis ICD10 Code Diagnosis Note [id number] [address] [place] [address] 05/19/2021 11:04:13 05/19/2021 12:17:12 [id number] [address] [place] [phone] 01/17/2022 10:00:57 01/17/2022 13:05:48 [id number] [address] [place], [place] [address] [address] 04/18/2018 17:30:04 04/18/2018 18:38:53 [id number] [address] [place] [phone] 03/09/2019 11:07:32 03/09/2019 12:09:16 [id number] ISIDRO PACE [address] [place] [address] 02/24/2023 09:37:25 02/24/2023 10:26:41 History and physical examination, occupation 567504355 Z02.1 Health Concerns Section Related Observation LastModified by Organization Detai ls LastModified Time None Recorded Concern Status LastModified by Organization Details LastModified Time None Recorded Advance Directives Directive None Recorded Payers Encounter Date Sequence Insurance Name Policy Number Policy White Covered Member ID White Member ID Guarantor Name 04/18/2018 1 [facility] (MEDICAID REPLACEMENT - HMO) JUAN CARLOS Matt [id number] Christine Matt 05/19/2021 1 [facility] (MEDICAID REPLACEMENT - HMO) JUAN CARLOS Matt [id number] Christine Matt 01/17/2022 1 [facility] (MEDICAID REPLACEMENT - HMO) JUAN CARLOS Matt [id number] Christine Matt 02/24/2023 OC-ESCREEN Christine Matt [id number] Khoi Matt OBGyn Episode No OBEpisode recorded.
--- OUTSIDE RECORDS SUMMARY | 2024-09-26 17:12 | XMS_ITS | Clinical Summary ---
Author Organization [facility] [address] [place] [address] Address [address] [facility] [place] Phone Care Team Providers Care Document Preparation Specialist Name Role Phone Loida Izaguirre MD Primary Care Provider [phone] Allergies Active Allergy Reactions Criticality Noted Date Comments Interferons 02/19/2021 Methotrexate Hives 07/11/2022 Other Hives High 05/09/2018 Interferon Abdiel Sulfate Ion Hives Low 05/09/2018 Medications Medication Sig Dispensed Refills Start Date End Date Status omeprazole (PriLOSEC) [address] capsule TAKE 1 CAPSULE BY MOUTH DAILY. TAKE ON EMPTY STOMACH, WAIT 30 MINUTES AND THEN EAT TO ACTIVATE MEDICATION. 12/05/2023 Active losartan (COZAAR) 100 mg tablet Take 1 tablet (100 mg total) by mouth 1 (one) time each day. 10/30/2023 Active metoprolol tartrate (LOPRESSOR) 100 mg tablet Take 1 tablet (100 mg total) by mouth 1 (one) time each day. 10/30/2023 Active rosuvastatin (CRESTOR) 5 mg tablet Take 1 tablet (5 mg total) by mouth 1 (one) time each day. 10/30/2023 Active amLODIPine (NORVASC) 10 mg tablet Take 1 tablet (10 mg total) by mouth 1 (one) time each day. 10/30/2023 Active sucralfate (CARAFATE) 1 gram tablet Take 1 Tablet by mouth 4 times daily. 03/11/2024 Active famotidine (PEPCID) 20 mg tablet Take 1 Tablet by mouth 2 times daily as needed for Heartburn. 02/21/2024 Active adalimumab (Humira,CF, Pen) 40 mg/0.4 mL pen Inject into the skin every 14 days. Active medical supply, miscellaneous (MISCELLANEOUS MEDICAL SUPPLY MISC) [facility]. Devices (Fingertip Pulse Oximeter) [facility] Sig - Route: 1 Device by Does not apply route as needed for Other (shortness of breath). - Does not apply Sent to pharmacy as: Fingertip Pulse Oximeter 03/03/2022 Active clonazePAM (KlonoPIN) 0.5 mg tablet Take 0.5 mg by mouth at bedtime as needed. Active venlafaxine XR (EFFEXOR-XR) 150 mg 24 hr capsule Take 150 mg by mouth daily. Active aspirin 81 mg EC tablet TAKE 1 TABLET BY MOUTH EVERY DAY 90 tablet 1 07/01/2024 Active montelukast (SINGULAIR) 10 mg tabletIndications:N on-seasonal allergic rhinitis due to other allergic trigger Take 1 tablet (10 mg total) by mouth at bedtime. Sig: TAKE 1 TABLET BY MOUTH AT BEDTIME 90 tablet 3 08/22/2024 Active loratadine (CLARITIN) 10 mg tabletIndications:N on-seasonal allergic rhinitis due to other allergic trigger Take 1 tablet (10 mg total) by mouth 1 (one) time each day. 90 tablet 3 08/22/2024 5 Active umeclidinium-vilant Gianna (Anoro Ellipta) 62.5-25 mcg/actuation inhalerIndications: Chronic obstructive pulmonary disease with acute lower respiratory infection (CMS/HCC) Inhale 1 puff by mouth 1 (one) time each day. 3 each 3 08/22/2024 Active albuterol HFA (Ventolin HFA) 90 mcg/actuation inhalerIndications: Chronic obstructive pulmonary disease with acute lower respiratory infection (CMS/HCC) Inhale 2 puffs by mouth every 4 (four) hours if needed for wheezing. 54 g 3 08/22/2024 Active diclofenac (VOLTAREN) 1 % topical gel APPLY 1 GRAM TOPICALLY 4 TIMES DAILY NEEDED (PAIN). 400 g 1 09/16/2024 Active diclofenac (VOLTAREN) 1 % topical gel APPLY 1 G TOPICALLY 4 TIMES DAILY NEEDED (PAIN). 11/13/2023 5 Discontinued azithromycin (ZITHROMAX) 250 mg tabletIndications:C hronic obstructive pulmonary disease with acute lower respiratory infection (CMS/HCC) Take 2 tablets (500 mg total) by mouth 1 (one) time each day for 1 day, THEN 1 tablet (250 mg total) 1 (one) time each day for 4 days. 6 each 08/22/2024 4 predniSONE (DELTASONE) 10 mg tabletIndications:C OPD exacerbation,asthma exacerbation Take 4 tablets (40 mg total) by mouth 1 (one) time each day for 3 days, THEN 3 tablets (30 mg total) 1 (one) time each day for 3 days, THEN 2 tablets (20 mg total) 1 (one) time each day for 3 days, THEN 1 tablet (10 mg total) 1 (one) time each day for 3 days. 30 each 08/22/2024 5 Active Problems Problem Noted Date Diagnosed Date [...] C 05/09/2018 Overview (05/29/2024): Currently treated at [facility] in [place]. Negative titers 05/2018 Colon polyps 05/09/2018 Depression 05/09/2018 Overview (05/29/2024): Follows with psychiatrist in [place] Taking effexor for 14 yrs GERD (gastroesophageal [...] Team Description 08/30/2024 Telephone Thoracic Surgery - [place] [facility] [address] [place] [phone] Viviana Allen [place] 08/26/2024 Telephone Pulmonolgy - [place] [address] [facility] [address] [place] [phone] Jeaneth South [place] prior auth 08/22/2024 8:50 AM EST Office Visit Pulmonolgy - [place] [address] [facility] [address] [place] [phone] Cynthia Dc, JJ Chronic obstructive pulmonary disease with acute lower respiratory infection (CMS/HCC) (Primary Dx); Non-seasonal allergic rhinitis due to other allergic trigger; Moderate obstructive sleep apnea; Pulmonary nodules; Rheumatoid arthritis, involving unspecified site, unspecified whether rheumatoid factor present (CMS/HCC); Overweight (BMI 25.0-29.9) 08/22/2024 Telephone Pulmonolgy - [place] [address] [facility] [address] [place] [phone] Jeaneth South [place] DME request (Original CPAP) 08/05/2024 Telephone Lung Screening Program - [place] [address] [facility] [address] [place] [phone] Goldie Yip MA from Last 3 Months [...] colonoscopy in 10 years ESOPHAGOGASTRODUODENOSCOPY 08/2019 PROCEDURE: MI EGD TRANSORAL BIOPSY SINGLE/MULTIPLE; COMMENT: Performed with colonoscopy on September 24-with Dr. Cruz. Positive for erythema and antrum and duodenum BREAST BIOPSY PROCEDURE: BX BREAST; PERC NEEDLE CORE W/IMAG GUID ESOPHAGOGASTRODUODENOSCOPY 12/23/2020 PROCEDURE: MI EGD TRANSORAL BIOPSY SINGLE/MULTIPLE; COMMENT: Visually normal; mapping biopsies done to evaluate intestinal metaplasia of the gastric mucosa. Pathology: Normal, no intestinal metaplasia. ESOPHAGOGASTRODUODENOSCOPY PROCEDURE: MI EGD TRANSORAL BIOPSY SINGLE/MULTIPLE; COMMENT: Formed on December 23, 2020 CARPAL TUNNEL RELEASE 02/08/2021 Left PROCEDURE: MI NEUROPLASTY &/TRANSPOS MEDIAN NRV CARPAL TUNNE; COMMENT: [...] DX:Depression; C OMMENT: Follows with psychiatrist in [place] Taking effexor for 14 yrs Constipation 10/08/2018 DX:Constipation Colon polyps 05/09/2018 DX:Colon polyps Chronic neck and back pain 09/25/2018 DX:Ch ronic neck and back pain Chronic hepatitis C (CMS/HCC) 05/09/2018 DX :Chronic hepatitis C (HCC); COMMENT: Currently treated at [facility] in [place]. Negative titers 05/2018 Anxiety 05/09/2018 DX:Anxiety Complex [...] Care Team (Late st Contact Info) Description 10/21/2024 8:00 AM EST Appointment [facility] Xray [address] [place] [phone] 10/29/2024 8:45 AM EST Office Visit Obstetrics and Gynecology [facility] [address] [place] [address] Doris Gonzales, [facility] [address] [place] [address] 10/30/2024 1:15 PM EST Office Visit Adult Medicine [facility] [address] [place] [address] Loida Izaguirre MD [address] [place] [address] 10/31/2024 9:00 AM EST Office Visit Thoracic Surgery - [place] [address] [phone] Cheri Beck MD [address] [address] 11/20/2024 9:10 AM EDT Office Visit Pulmonolgy [facility] [address] [facility] [address] [place] [phone] Cynthia Dc, JJ 175 [facility] [address] [place] [address] Health Maintenance Due Date Last Done Comments [...] Procedure Name Priority Date/Time Associated Diagnosis Comments MI SLEEP STUDY ATTENDED 08/22/2024 MI SLEEP STUDY ATTENDED 07/30/2024 DEPRESSION SCREENING Routine [...] Results * General sleep study (08/22/2024) Provider [facility] SLE[facility] ORD ERABLES * General sleep study (07/30/2024) Provider [facility] SLEEP [place] ORD ERABLES * Annual BMP Blood Test (05/01/2024) Pathologist [facility] Annual BMP Blood Test abstracted Historical Provider MD NA AYALA E * Depression Screening (05/01/2024) Pathologist [facility] Depression Screening abstracted Historical Provider MD NA AYALA E Lipid panel (05/01/2024) Pathologist [facility] LDL/HDL Ratio 3 0 - 4 Triglycerides [...] PROCEDURES * Cervical Cancer Screening: HPV (09/01/2020) Cervical Cancer Screening: HPV negative, abstracted Historical Provider MD MONZON MAINSILVERIO E * Colonoscopy (09/24/2019) Pathologist [facility] Colonoscopy no interpretation , abstracted Anatomical Region Laterality Modality Other Historical Provider MD NA Carranza * Hepatitis C Screening (07/15/2019) [facility] Hepatitis C Screening abstracted Historical Provider MD NA Carranza from Last 3 Months or Most Recently Relevant to Health Maintenance Care Teams Document Preparation Specialist Relationship Specialty Start Date End Date Loida Izaguirre MD [address] [place] [address] PCP - General Internal Medicine 09/01/21
[2024-09-27 15:02] LABS: HCV Log PCR <1.18 NOT DETECTED Log IU/mL (NOT DETECTED); HepC Viral Load <15 NOT DETECTED IU/mL (NOT DETECTED)
[2024-10-02 08:42] LABS: Anti Nuclear Antibody Screen NEGATIVE (NEGATIVE)
[2024-10-02 11:19] LABS: Prot Elec - Albumin 4.1 g/dL (3.8-4.8); Prot Elec - Alpha1 0.3 g/dL (0.2-0.3); Prot Elec - Beta 1 0.5 g/dL (0.4-0.6); Prot Elec - Beta 2 0.4 g/dL (0.2-0.5); Prot Elec - Gamma 0.9 g/dL (0.8-1.7); Prot Elec - Total Protein 7.1 g/dL (6.1-8.1)
== END 2024-09-26 13:19 | disposition home or self-care (01) ==
LOC: HO.LAB 13:18
PROVIDERS: Absent Provider Internal Medicine Rheumatology; PCP Internal Medicine; Visit Provider Internal Medicine
DX: G60.9 Hereditary and idiopathic neuropathy, unspecified (principal); R74.01 Elevation of levels of liver transaminase levels; Z79.899 Other long term (current) drug therapy
CPT/HCPCS: 36415; 80076; 82607; 84165; 86038; 87522

== ENCOUNTER 2025-03-11 13:23 | Outpatient (REF) | payer OTHER, SELFPAY ==
[2025-03-11 13:56] LABS: Baso%MD 0.7 %; Eos%MD 15.7 %; Hematocrit 39.4 % (37.0-47.0); Hemoglobin 13.0 g/dl (12.0-16.0); IG%MD 0.3 %; Lymph%MD 38.8 %; Mean Corpuscular HGB Conc 33.0 g/dl (31.0-35.0); Mean Corpuscular Hemoglobin 28.4 pg (27.0-33.0); Mean Corpuscular Volume 86.2 fL (80.0-98.0); Mono%MD 10.1 %; NRBC Abs Auto 0.000 X10*3/uL (0.0-0.012); NRBC Pct Auto 0.0 /100WBC (0.0-0.2); Neut%MD 34.4 %; Platelet Count 242 X10*3/uL (160-400); Red Blood Count 4.57 X10*6/uL (4.20-5.50); White Blood Count 7.0 X10*3/uL (4.8-10.8)
[2025-03-11 14:28] LABS: Alanine Aminotransferase 20 U/L (0-31); Aspartate Amino Transferase 33 U/L (5-31); Estimated Glomerular Filt Rate > 60
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
--- OUTSIDE RECORDS SUMMARY | 2025-03-11 14:45 | XMS_ITS | Data Portability ---
Author Organization [facility] [employer] [facility], [address] Address [address] [place] [address] Assessment No assessment recorded. Plan of Treatment [...] Send Out Template NON DOT completed [facility] [email or web address] [facility] 02/24/2023 10:25:52 Imaging Results None recorded. [...] SNOMED-CT Code Diagnosis ICD10 Code Diagnosis Note [id number] [address] [place] [address] 05/19/2021 11:04:13 05/19/2021 12:17:12 [id number] [address] [place] [address] 01/17/2022 10:00:57 01/17/2022 13:05:48 [id number] [address] [place] [address] 04/18/2018 17:30:04 04/18/2018 18:38:53 [id number] [address] [place] [address] 03/09/2019 11:07:32 03/09/2019 12:09:16 [id number] [facility] [address] [place] [address] 02/24/2023 09:37:25 02/24/2023 10:26:41 History and physical examination, occupation [id number] Z02.1 Health Concerns Section Related Observation LastModified by Organization Detai ls LastModified Time None Recorded Concern Status LastModified by Organization Details LastModified Time None Recorded Advance Directives Directive None Recorded Payers Insurance Date Sequence Insurance Name Policy Number Policy White Covered Member ID White Member ID Guarantor Name 02/24/2023 1 [facility] PLAN - [facility] (MEDICAID REPLACEMENT - HMO) JUAN CARLOS Matt [id number] Christine Matt 02/24/2023 OC-ESCREEN Christine Matt [id number] Khoi [id number] [facility] OBGyn Episode No OBEpisode recorded.
[2025-03-11 19:50] LABS: Atypical Lymph Absolute Manual 0.1 x10*3/uL; Atypical Lymphs Percent Manual 1 % (0-6); Band Neutrophils Percent 2 % (3-5); Basophils Abs Manual 0.1 X10*3/uL (0.0-0.2); Basophils Percent Manual 1 % (0-2); Eosinophils Absolute Manual 1.1 X10*3/uL (0.0-0.4); Eosinophils Percent Manual 16 % (0-4); Lymphocytes Absolute Manual 2.3 X10*3/uL (1.2-4.9); Lymphocytes Percent Manual 33 % (20-40); Monocytes Absolute Manual 0.5 X10*3/uL (0.1-1.2); Monocytes Percent Manual 7 % (2-11); Neutrophils Absolute Manual 2.9 X10*3/uL (2.0-8.3); Neutrophils Percent Manual 40 % (45-73)
[2025-03-11 19:51] LABS: RBC Morphology NORMAL
== END 2025-03-11 13:24 | disposition home or self-care (01) ==
LOC: HO.LAB 13:23
PROVIDERS: PCP Internal Medicine; Visit Provider Internal Medicine Rheumatology
DX: L40.50 Arthropathic psoriasis, unspecified (principal)
CPT/HCPCS: 36415; 82565; 84450; 84460; 85007; 85027; 85652; 86140

== ENCOUNTER 2025-03-19 08:40 | Outpatient (AMB) | payer OTHER, SELFPAY ==
--- NOTE | 2025-03-19 08:45 | MHC.OFFVIS ---
Vital Signs 03/19/25 08:46 Height 5 ft 3 in Weight 165 lb 6 oz BMI 29.3 BP 170/100 H Blood Pressure Location Rt brachial Position Sitting Pulse 92 Pulse Source Pulse Oximeter Pulse Oximetry (%) 97 Oxygen Delivery Method Room Air Intake Visit Reasons: follow up Intake Note: Patient presents for follow up on PSA. Allergies interferons Allergy (Unknown, Uncoded 09/18/24 09:03) Hives sulfa Allergy (Unknown, Uncoded 09/18/24 09:03) Hives HPI HPI follow up: Details: She had 1 injection of Humira. She has been off of leflunomide since December. Last visit in August. Psoriasis improved with 1st dose of Humira. She continues to have swelling in her joints. Morning stiffness is hours. [facility] Medical History Raynaud disease Psoriasis TIA (transient ischemic attack) High cholesterol HTN (hypertension) Physical Exam Vital Signs: Last Vital Signs Pulse 92 03/19/25 08:46 BP 170/100 H 03/19/25 08:46 Pulse Ox 97 03/19/25 08:46 Oxygen Delivery Method Room Air 03/19/25 08:46 BMI result Body Mass Index 29.3 Const Other: General: Comfortable CVS: RRR Respiratory: clear to auscultation bilaterally. Good respiratory effort Skin: Plaque PsO on elbows MSK: Chronic synovial thickening bilateral MCPs 2-3 and right 5th MCP. She has synovitis in right 2nd PIP and left 2nd and 5th PIP. All PIPs are tender. R wrist is tender. She has tenderness of bilateral shoulders. Shoulder abduction 160 degrees. Good internal external rotation of bilateral shoulders. Limited full external rotation of bilateral hips. Bilateral ankle tenderness General: patient obtunded Orientation/consciousness: patient obtunded Neuro General: patient obtunded Assessment & Plan Assessment & Plan (1) Psoriatic arthritis: Comment: Inflammatory arthritis and psoriasis is uncontrolled. She recently started Humira. Need more time for full benefit on Humira. Rheumatology history: She has sarcoidosis (cutaneous, lungs, inflammatory arthritis) and Psoriasis. Inflammatory arthritis involves hands, polyarticular and symmetrical. Cutaneous sarcoidosis was diagnosed on biopsy presenting with nodules. She also has history of lung nodules. Methotrexate in March 2022 cause drug hypersensitivity rash. She was on leflunomide from July 2022-. Hepatitis C treated 2017. 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
[2025-03-19 08:46] VITALS: BP 170/100; PULSE 92; O2SAT 97; BMI 29.3
--- OUTSIDE RECORDS SUMMARY | 2025-03-19 08:55 | XMS_ITS | Encounter Summary ---
Author Organization [facility] Address [address] [place] [address] Care Team Providers Care Electroplater Automatic Name Role Phone Loida Izaguirre MD Primary Care Provider [phone] Reason for Visit * Reason Onset Date Comments Fall 02/25/2025 Arm Swelling 02/25/2025 Arm Pain 02/25/2025 Elbow Pain 02/25/2025 Encounter Details Date Type Department Care Team (Late st Contact Info) Description 02/25/2025 Nurse Triage Adult Medicine [facility] [address] [place] [address] Loida Izaguirre MD [address] [place] [address] Fall; Arm Swelling; Arm Pain; Elbow Pain [...] tripped) Losing balance Protocols used: Falls and Lyabnxq-J-EG * Casey Bain - 02/25/2025 8:40 AM [...] traveled recently to another state outside of [place], [place], [place], [place], [place], [place], [place]? no o If yes, did you quarantine [...] of accident/Injury: No If yes, gather 3rd libertarian insurance information Third Alliance Party Information: not applicable PCP: Loida Izaguirre MD Payor: [facility] [employer] PLAN / Plan: [facility] MEDICAID / Product Type: *No Product type* / documented in this encounter Plan of Treatment Upcoming Encounters Date Type Department Care Team (Late st Contact Info) Description 03/25/2025 4:00 PM EDT Office Visit Adult Medicine [address] [address] Rosita Ray PA [address] [place] [address] 05/14/2025 9:45 AM EDT Office Visit Adult Medicine [address] [address] Loida Izaguirre MD [address] [place] [address] documented as of this encounter Visit Diagnoses Not on filedocumented in this encounter Additional Health Concerns Assessment Noted Time PHQ-9 Depression Total Score: 0 10/24/19 25 1:29 PM EST documented as of this encounter Care Teams Electroplater Automatic Relationship Specialty Start Date End Date Loida Izaguirre MD [address] [place] [address] PCP - General Internal Medicine 09/01/21 documented as of this encounter
--- OUTSIDE RECORDS SUMMARY | 2025-03-19 08:56 | XMS_ITS | Data Portability ---
Author Organization [facility] [employer] [facility], [address] Address [address] [place] [address] Assessment No assessment recorded. Plan of Treatment [...] Out Template NON DOT completed [facility] [employer] [facility] 02/24/2023 10:25:52 Imaging Results None recorded. [...] SNOMED-CT Code Diagnosis ICD10 Code Diagnosis Note [id number] [address] [place] [address] 05/19/2021 11:04:13 05/19/2021 12:17:12 [id number] [address] [place] [address] 01/17/2022 10:00:57 01/17/2022 13:05:48 [id number] [address] [place] [address] 04/18/2018 17:30:04 04/18/2018 18:38:53 [id number] [address] [place] [address] 03/09/2019 11:07:32 03/09/2019 12:09:16 [id number] [facility] [address] [place] [address] 02/24/2023 09:37:25 02/24/2023 10:26:41 History and physical examination, occupation [id number] Z02.1 Health Concerns Section Related Observation LastModified by Organization Detai ls LastModified Time None Recorded Concern Status LastModified by Organization Details LastModified Time None Recorded Advance Directives Directive None Recorded Payers Insurance Date Sequence Insurance Name Policy Number Policy White Covered Member ID White Member ID Guarantor Name 02/24/2023 1 [facility] PLAN - [facility] (MEDICAID REPLACEMENT - HMO) JUAN CARLOS Matt [id number] Christine Matt 02/24/2023 OC-ESCREEN Christine Matt [id number] Khoi [id number] [facility]BG[facility] Episode No OBEpisode recorded.
--- OUTSIDE RECORDS SUMMARY | 2025-03-19 08:56 | XMS_ITS ---
Author Name [facility] Organization Unknown Care Team Organization Name Specialty Phone Email Start Date End Da te [facility] Loida Izaguirre Primary Care 07/05/2022
== END 2025-03-19 09:22 | disposition home or self-care (01) ==
LOC: HO.RHES 08:40
PROVIDERS: PCP Internal Medicine; Visit Provider Internal Medicine Rheumatology
DX: L40.50 Arthropathic psoriasis, unspecified (principal); Z79.899 Other long term (current) drug therapy; D86.86 Sarcoid arthropathy
CPT/HCPCS: 99214; G2211

== ENCOUNTER → 2025-03-19 08:40 | Outpatient (BNVA) | payer OTHER, SELFPAY | PROVIDERS: PCP Internal Medicine; Visit Provider Internal Medicine Rheumatology | DX: L40.50 Arthropathic psoriasis, unspecified (principal); D86.86 Sarcoid arthropathy; I73.00 Raynaud's syndrome without gangrene; Z79.899 Other long term (current) drug therapy | CPT/HCPCS: 99212 ==

== ENCOUNTER 2025-05-23 13:44 | Emergency (ER) | payer OTHER, SELFPAY ==
--- OUTSIDE RECORDS SUMMARY | 2025-05-23 10:20 | XMS_ITS | Encounter Summary ---
Author Organization Address [address] [place] [address] Care Team Providers Care Make Up Man Name Role Phone Loida Izaguirre MD Primary Care Provider Reason for Referral * Imaging (Routine) - Pending Review Specialty Diagnoses / Procedures Referred By Contac t Referred To Contact Cardiology Diagnoses Other chest pain Procedures Transthoracic echocardiogram (TTE) complete with PRN contrast, bubble, strain, and 3D order panel WA TTE W 2D IMAGE COMPLETE W DOPPLER ECHO & COLOR FLOW DOPPLER ECHO WA TOBI 2D COMPLETE W/CONTRAST OR W & WO CONTRAST WITH DOPPLER Mir Breen MD [address] [place] [address] Dr [address] [place] [phone] Phone: tel: fax: [facility] Referral ID Status Reason Start Date Expiration Date V isits Requested Visits Authorized [id number] Pending Review 05/23/2025 05/23/2026 1 1 * Imaging (Routine) - Pending Review Specialty Diagnoses / Procedures Referred By Contac t Referred To Contact Radiology Diagnoses Other chest pain Procedures CT Angio Heart w 3D Imaging/Function Mir Breen MD [address] [place] [address] Dr [address] [place] [phone] Phone: tel: fax: External Performed Referral ID Status Reason Start Date Expiration Date V isits Requested Visits Authorized [id number] Pending Review 05/23/2025 05/23/2026 1 1 Reason for Visit * Reason Comments NEW PATIENT * Consultation (Urgent) - Authorized Specialty Diagnoses / Procedures Referred By Controse mary t Referred To Contact Cardiology Diagnoses Abnormal cardiovascular stress test Substernal chest pain Primary hypertension Rosita Ray PA [address] [place] [address] Phone: tel: fax: [facility] [address] [place] [address] Phone: tel: fax: Referral ID Status Reason Start Date Expiration Date Visits Requested Visits Authorized [id number] Authorized Specialty Services Required 05/08/2025 05/08/2026 1 1 Encounter Details Date Type Department Care Team (Latest Contact Info) Description 05/23/2025 10:20 AM EDT Office Visit [facility] [address] [place] [phone] Mir Breen MD [facility] [address] [place] [phone] Other chest pain (Primary Dx); Primary hypertension; Pure hypercholesterolemia; Abnormal cardiovascular stress test; Substernal chest pain Social History Tobacco Use Types Packs/Day Years [...] Sign Reading Time Taken Comments Blood Pressure 130/88 05/23/2025 10:06 AM EDT Pulse 84 05/23/2025 10:06 AM EDT Temperature - - Respiratory Rate - - Oxygen Saturation 98% 05/23/2025 10:06 AM EDT Inhaled Oxygen Concentration - - Weight 74.4 kg (164 lb) 05/23/2025 10:06 AM EDT Height 160 cm (5' 3 ) 05/23/2025 10:06 AM EDT Body Mass Index 29.05 05/23/2025 10:06 AM EDT documented in this encounter Ordered Prescriptions Prescription Sig Dispense Quantity Refills Last Filled Start Date End Date isosorbide mononitrate (IMDUR) 30 mg 24 hr tabletIndications: Other chest pain Take 1 tablet (30 mg total) by mouth 1 (one) time each day. Do not crush or chew. 30 each 11 05/23/2025 05/23/2026 documented in this encounter Progress Notes * Mir Breen MD - 05/23/2025 10:20 AM EDTAssociated Problem(s): HTN (hypertension) The patient has a history of arterial hypertension. The patient's blood pressure today was noted gillian well controlled. We'll continue the current antihypertensive medication regimen. Orders: Ambulatory referral to Cardiology ECG 12 lead * Mir Breen MD - 05/23/2025 10:20 AM EDTAssociated Problem(s): Chest pain The patient came for evaluation due to episodes of chest pain. Description of symptoms: Risk factors for CAD: Hypertension, hyperlipidemia, prediabetes, former smoker Previous cardiac evaluation: 1. Abnormal exercise nuclear stress test (normal myocardial perfusion but the patient has symptoms of chest pain with exertion and ischemic ECG changes during the exercise protocol). Management plan: 1. Ischemic evaluation with a cardiac CT scan. The use of a cardiac CT scan is recommended by the 2021 chest pain guidelines for evaluation of patients with stable chest pain, no known CAD, and increased risk for the presence of coronary artery disease (level 1A recommendation). 2. Also, will order an echocardiogram to rule out any structural heart disease that may be contributing to the patient's symptoms: 3. The patient was instructed to avoid any strenuous physical activities, including formal and informal exercise, until the cardiac evaluation is completed and the results have been discussed with the patient. 4. Continue current dose of metoprolol, amlodipine, aspirin, and rosuvastatin. Start isosorbide mononitrate 30 mg orally daily 5. During today's visit, we reviewed the warning signs that should prompt an urgent medical evaluation. Specifically, we discussed that the patient should go to the hospital if she develops any chestdiscomfort at rest or worsening chest discomfort with exertion. Orders: Comprehensive metabolic panel; Future Lipid panel with reflex to direct LDL; Future Lipoprotein A; Future CT Angio Heart w 3D Imaging/Function; Future Transthoracic echocardiogram (TTE) complete with PRN contrast, bubble, strain, and 3D order panel; Future perflutren lipid microsphere (DEFINITY) 1.3 mL in sodium chloride 0.9% 8.7 mL injection isosorbide mononitrate (IMDUR) 30 mg 24 hr tablet; Take 1 tablet (30 mg total) by mouth 1 (one) time each day. Do not crush or chew. * Mir Breen MD - 05/23/2025 10:20 AM EDTAssociated Problem(s): Hyperlipidemia The patient has a history of hyperlipidemia. The patient is currently on rosuvastatin 5 mg orally daily. We will order a new lipid panel to evaluate the patient's current lipid control and determine if any adjustment are needed in the lipid lowering therapy. Orders: Comprehensive metabolic panel; Future Lipid panel with reflex to direct LDL; Future Lipoprotein A; Future * Mir Breen MD - 05/23/2025 10:20 AM EDT [facility] Outpatient Consultation Note PCP: Loida Izaguirre MD HPI: Christine Matt is a 55 y.o. old female with history of hypertension, hyperlipidemia, prediabetes, former smoker, Raynaud's syndrome, and rheumatoid arthritis who was referred for a cardiac evaluation. On today's visit, the patient is accompanied by her . The patient states that she has been experiencing episodes of chest discomfort for the past few months. She describes her symptoms as a chest discomfort sensation that occurs at rest and sometimes with exertion. However, the same level of exertion does not always result in the development of symptoms. She has 1 or 2 episodes of chest discomfort every week. Rare episodes of chest discomfort usually last for up to 5 minutes per episode. The patient does report a mild but chronic shortness of breath with exertion. She denies any dizziness, orthopnea, PND, palpitations, or syncope. Cardiac testin. Nuclear stress test (April 2025): Abnormal exercise nuclear stress test. Exercise protocol: The patient exercised for 5 minutes and 45 seconds. The patient achieved 95% of the Max predicted heart rate. . Functional capacity: Average functional capacity for age and gender. Symptoms: The patient developed mild chest discomfort at peak exercise which resolved in the recovery stage. Stress ECG: No evidence of significant ischemic ECG changes at peak exercise (in the setting of an abnormal baseline). However, the patient did develop a new right bundle branch block during the recovery stage.The presence of a new right bundle branch block during recovery from an exercise stress test is usually benign but it may be associated with underlying coronary artery disease.. Myocardial perfusion imaging: Myocardial perfusion imaging revealed no areas of ischemia or infarction after attenuation correction was applied. TID was normal 0.79. Gated images revealed normal LV wall motion and thickening; with a normal LV systolic function (LVEF 55%). In summary, on the current study the patient hadsymptoms with exertion and an abnormal EKG during the recovery stage while having a normal myocardial perfusion on the attenuation corrected images. Even though the myocardial perfusion images did not show any evidence of ischemia or infarct, would recommend to consider further evaluation with a cardiac CT scan or left heart catheterization given the exertional symptoms and the abnormal EKG notedduring the recovery stage. ACTIVE MEDICATIONS: Outpatient Medications Marked as Taking for the 05/23/25 encounter (Office Visit) with Mir Breen MD Medication Sig Dispense Refill adalimumab (Humira,CF, Pen) 40 mg/0.4 mL pen Inject into the skin every 14 days. albuterol HFA (Ventolin HFA) 90 mcg/actuation inhaler Inhale 2 puffs by mouth every 4 (four) hours if needed for wheezing. 54 g 3 amLODIPine (NORVASC) 10 mg tablet TAKE 1 TABLET BY MOUTH EVERYDAY AT BEDTIME 90 tablet 1 aspirin 81 mg EC tablet Take 1 tablet (81 mg total) by mouth 1 (one) time each day. 90 tablet 0 clonazePAM (KlonoPIN) 0.5 mg tablet Take 0.5 mg by mouth at bedtime as needed. diclofenac (VOLTAREN) 1 % topical gel APPLY 1 GRAM TOPICALLY 4 TIMES DAILY NEEDED (PAIN). 400 g 1 fluticasone propionate (FLONASE) 50 mcg/actuation nasal spray Administer 2 sprays into each nostril1 (one) time each day. Shake gently. Before first use, prime pump. After use, clean tip and replacecap. 32 mL 3 loratadine (CLARITIN) 10 mg tablet Take 1 tablet (10 mg total) by mouth 1 (one) time each day. 90 tablet 3 losartan (COZAAR) 100 mg tablet Take 1 tablet (100 mg total) by mouth at bedtime. 90 tablet 1 metoprolol tartrate (LOPRESSOR) 100 mg tablet TAKE 1 TABLET BY MOUTH EVERYDAY AT BEDTIME 90 tablet 1 omeprazole (PriLOSEC) [address] capsule TAKE 1 CAPSULE BY MOUTH DAILY ON EMPTY STOMACH, WAIT 30 MINUTES AND THEN EAT TO ACTIVATE MEDICATION. 90 capsule 1 rosuvastatin (CRESTOR) 5 mg tablet TAKE 1 TABLET BY MOUTH EVERYDAY AT BEDTIME 90 tablet 1 sucralfate (CARAFATE) 1 gram tablet TAKE 1 TABLET BY MOUTH FOUR TIMES A DAY 120 tablet 5 umeclidinium-vilanteroL (Anoro Ellipta) 62.5-25 mcg/actuation inhaler Inhale 1 puff by mouth 1 (one) time each day. 3 each 3 venlafaxine XR (EFFEXOR-XR) 150 mg 24 hr capsule Take 150 mg by mouth daily. Current Facility-Administered Medications for the 05/23/25 encounter (Office Visit) with Mir Breen MD Medication Dose Route Frequency Provider Last Rate Last Admin TC-99M tetrofosmin P radio-isotope injection 30.3 millicurie 30.3 millicurie intravenous Once in imaging ISIDRO Sampson ALLERGIES: Allergies Allergen Reactions Other Hives Interferon Abdiel Interferons Methotrexate Hives Sulfate Ion Hives FAMILY HISTORY: Family History Problem Relation Name Age of Onset Alcohol/Drug Mother Diabetes Father Hypertension, Hypothyroid Other (Other: homicide) Brother No Known Problems Maternal Grandmother Heart attack Maternal Grandfather Brain Aneurysm Paternal Grandmother No Known Problems Paternal Grandfather Breast cancer Neg Hx SOCIAL HISTORY: Social History Tobacco Use Smoking status: Former Types: Cigarettes Start date: 08/28/1982 Smokeless tobacco: Never Substance Use Topics Alcohol use: No REVIEW OF SYSTEMS: Review of Systems Constitutional: Negative for malaise/fatigue. Cardiovascular: Positive for chest pain and dyspnea on exertion. Negative for claudication, leg swelling, near-syncope, orthopnea, palpitations, paroxysmal nocturnal dyspnea and syncope. Respiratory: Positive for shortness of breath. Neurological: Negative for dizziness and light-headedness. PHYSICAL EXAM: Vitals: 05/23/25 1006 BP: 130/88 Pulse: 84 SpO2: 98% Body mass index is 29.05 kg/m??. Physical Exam Constitutional: Appearance: Normal appearance. HENT: Head: Normocephalic. Nose: Nose normal. Cardiovascular: Rate and Rhythm: Normal rate and regular rhythm. Heart sounds: Normal heart sounds. No murmur heard. No friction rub. No gallop. Pulmonary: Effort: Pulmonary effort is normal. Breath sounds: Normal breath sounds. Musculoskeletal: General: No swelling. Skin: General: Skin is warm. Neurological: Mental Status: She is oriented to person, place, and time. Mental status is at baseline. Psychiatric: Mood and Affect: Mood normal. Behavior: Behavior normal. EKG: Encounter Date: 05/23/25 ECG 12 lead Result Value Ventricular Rate ECG 80 Atrial Rate 80 P-R Interval 150 QRS Duration 84 Q-T Interval 394 QTc 454 P Wave [place] 57 R [place] 46 T [place] 61 ECG Interpretation Normal sinus rhythm Normal ECG When compared with ECG of 22-OCT-2018 16:03, Nonspecific T wave abnormality no longer evident in Anterolateral leads Confirmed by MIR BREEN ([id number]) on 05/23/2025 10:50:08 AM *Note: Due to a large number of results and/or encounters for the requested time period, some results have not been displayed. A complete set of results can be found in Results Review. ASSESSMENT/PLAN: Assessment & Plan Primary hypertension The patient has a history of arterial hypertension. The patient's blood pressure today was noted gillian well controlled. We'll continue the current antihypertensive medication regimen. Orders: Ambulatory referral to Cardiology ECG 12 lead Other chest pain The patient came for evaluation due to episodes of chest pain. Description of symptoms: Risk factors for CAD: Hypertension, hyperlipidemia, prediabetes, former smoker Previous cardiac evaluation: 1. Abnormal exercise nuclear stress test (normal myocardial perfusion but the patient has symptoms of chest pain with exertion and ischemic ECG changes during the exercise protocol). Management plan: 1. Ischemic evaluation with a cardiac CT scan. The use of a cardiac CT scan is recommended by the 2020 chest pain guidelines for evaluation of patients with stable chest pain, no known CAD, and increased risk for the presence of coronary artery disease (level 1A recommendation). 2. Also, will order an echocardiogram to rule out any structural heart disease that may be contributing to the patient's symptoms: 3. The patient was instructed to avoid any strenuous physical activities, including formal and informal exercise, until the cardiac evaluation is completed and the results have been discussed with the patient. 4. Continue current dose of metoprolol, amlodipine, aspirin, and rosuvastatin. Start isosorbide mononitrate 30 mg orally daily 5. During today's visit, we reviewed the warning signs that should prompt an urgent medical evaluation. Specifically, we discussed that the patient should go to the hospital if she develops any chestdiscomfort at rest or worsening chest discomfort with exertion. Orders: Comprehensive metabolic panel; Future Lipid panel with reflex to direct LDL; Future Lipoprotein A; Future CT Angio Heart w 3D Imaging/Function; Future Transthoracic echocardiogram (TTE) complete with PRN contrast, bubble, strain, and 3D order panel; Future perflutren lipid microsphere (DEFINITY) 1.3 mL in sodium chloride 0.9% 8.7 mL injection isosorbide mononitrate (IMDUR) 30 mg 24 hr tablet; Take 1 tablet (30 mg total) by mouth 1 (one) time each day. Do not crush or chew. Pure hypercholesterolemia The patient has a history of hyperlipidemia. The patient is currently on rosuvastatin 5 mg orally daily. We will order a new lipid panel to evaluate the patient's current lipid control and determine if any adjustment are needed in the lipid lowering therapy. Orders: Comprehensive metabolic panel; Future Lipid panel with reflex to direct LDL; Future Lipoprotein A; Future The [facility] team will continue to co-manage this patient following the plan of care as established by my initial visit and as per AHA guidelines for ongoing management and surveillance of the medical conditions described previously in this medical note. This will include medication titration, initiation of appropriate medications and further titration, and diagnostic studies to manage this disease process. Please be aware that the above note was completed using voice recognition software. If you have anyquestions please contact the author of this note for clarification. documented in this encounter Plan of Treatment Upcoming Encounters Date Type Department Care Team (Late st Contact Info) Description 06/12/2025 8:45 AM EDT Office Visit Adult Medicine [facility] [address] [place], [place] [phone] Rosita Ray PA [address] [place], [place] 08/18/2025 2:00 PM EST Ancillary Procedure [facility] [address] [place] [phone] 09/18/2025 8:40 AM EST Office Visit [facility] [address] [place] [phone] Ramona Vargas NP 2 [facility] [address] [place] [phone] Scheduled Orders Name Type Priority Associated Diagnoses Orde r Schedule Comprehensive metabolic panel Lab Routine Other chest pain Pure hypercholesterolemia 1 Occurrences starting 05/23/2025 until 05/23/2026 Lipid panel with reflex to direct LDL Lab Routine Other chest pain Pure hypercholesterolemia 1 Occurrences starting 05/23/2025 until 05/23/2026 Lipoprotein A Lab Routine Other chest pain Pure hypercholesterolemia 1 Occurrences starting 05/23/2025 until 05/23/2026 CT Angio Heart w 3D Imaging/Function Cardiac CT/MRI Routine Other chest pain Expected: 05/23/2025, Expires: 05/23/2026 Transthoracic echocardiogram (TTE) complete with PRN contrast, bubble, strain, and 3D order panel Echocardiography Routine Other chest pain 1 Occurrences starting 05/23/2025 until 05/23/2026 documented as of this encounter Procedures Procedure Name Priority Date/Time Associated Diagnosis Comments ECG 12-LEAD Routine 05/23/2025 10:15 AM EDT Abnormal cardiovascular stress test Primary hypertension documented in this encounter Results * ECG 12 lead (05/23/2025 10:15 AM EDT) Ventricular Rate ECG 80 BPM GEMUSE Atrial Rate 80 BPM GEMUSE P-R Interval 150 ms GEMUSE QRS Duration 84 ms GEMUSE Q-T Interval 394 ms GEMUSE QTc 454 ms GEMUSE P Wave [place] 57 degrees GEMUSE R [place] 46 degrees GEMUSE T [place] 61 degrees GEMUSE ECG Interpretation Normal sinus rhythm Normal ECG When compared with ECG of 22-OCT-2018 16:03, Nonspecific T wave abnormality no longer evident in Anterolateral leads Confirmed by MIR BREEN ([id number]) on 05/23/2025 10:50:08 AM GEMUSE 05/23/2025 10:1 5 AM EDT 05/23/2025 10:50 AM EDT us Mir Breen MD ECG ORDERABLES Final Result GEMUSE documented in this encounter Visit Diagnoses Diagnosis Other chest pain- Primary Primary hypertension Unspecified essential hypertension Pure hypercholesterolemia Abnormal cardiovascular stress test Other nonspecific abnormal cardiovascular system function study Substernal chest pain Precordial pain documented in this encounter Discontinued Medications Medication Sig Discontinue Reason Start Date End Da te hydroCHLOROthiazide 12.5 mg tabletIndications:Primary hypertension Take 1 tablet (12.5 mg total) by mouth 1 (one) time each day. Patient Discharge 04/24/2025 05/23/2025 documented as of this encounter Orders Outpatient Referral Count Last Ordered Date Fir st Ordered Date AMB REFERRAL TO CARDIOLOGY 1 05/23/2025 documented in this encounter Additional Health Concerns Assessment Noted Time PHQ-9 Depression Total Score: 0 10/24/19 25 1:29 PM EST documented as of this encounter Care Teams Make Up Man Relationship Specialty Start Date End Date Loida Izaguirre MD [address] [place] [phone] PCP - General Internal Medicine 09/01/21 documented as of this encounter
[2025-05-23 14:07] VITALS: BP 187/89; PULSE 83; RESP 16; TEMP 36.3; O2SAT 97; BMI 29.4
--- NOTE | 2025-05-23 14:14 | ED_ITS ---
HPI - General Adult General Chief complaint: Extremity Injury, Lower Stated complaint: foot swelling Time Seen by Provider: 05/23/25 15:37 Source: patient, RN notes reviewed and old records reviewed Mode of arrival: ambulatory Limitations: no limitations History of Present Illness ED Provider: Ema HPI narrative: 55-year-old female presents for evaluation of right foot pain. Patient reports that about 2-1/2 or 3 weeks ago she was bit on the foot by her dog. There was no broken skin. She reports increased swelling and pain to the right foot just before the toes. She went to urgent care today and had an x-ray that could not determine if she had an acute fracture not due to an old fracture of the 3rd metatarsal. The patient denies any other injuries and only has pain to her right foot Related Data Home Medications ?Medication ?Instructions ?Recorded ?Confirmed CPAP (CPAP Machine/Device) 09/18/24 albuterol sulfate 90 mcg/actuation inhalation 09/18/24 aerosol inhaler (Ventolin HFA) amlodipine 10 mg tablet 10 mg PO DAILY 09/18/24 aspirin 81 mg tablet,delayed 81 mg PO DAILY 09/18/24 release clonazepam 0.5 mg tablet mg PO 09/18/24 diclofenac sodium 1 % topical gel topical BID 09/18/24 loratadine 10 mg tablet 10 mg PO DAILY 09/18/24 losartan 100 mg tablet 100 mg PO DAILY 09/18/24 metoprolol tartrate 100 mg tablet 100 mg PO DAILY 08/29 10/22 pramipexole 0.5 mg tablet 0.5 mg PO DAILY 09/18/24 rosuvastatin 5 mg tablet 5 mg PO DAILY 09/18/24 sucralfate 100 mg/mL oral PO 09/18/24 suspension (Carafate) umeclidinium 62.5 mcg-vilanterol 1 ea inhalation DAILY 09/18/24 25 mcg/actuation powdr for inhalation (Anoro Ellipta) venlafaxine 150 mg 150 mg PO DAILY 09/18/24 capsule,extended release 24 hr hydrochlorothiazide 12.5 mg tablet 12.5 mg PO DAILY Previous Rx's ?Medication ?Instructions ?Recorded meloxicam 15 mg tablet 15 mg PO DAILY #30 tabs 08/29 05/22 adalimumab 40 mg/0.4 mL 40 mg (0.4 mL) subcut Q14D # 2 ea 03/19/25 subcutaneous pen kit (Humira(CF) Pen) celecoxib 200 mg capsule 200 mg PO BID #180 caps 02/26 11/19 leflunomide 20 mg tablet 20 mg PO DAILY #30 tabs 02/26 11/19 Allergies Allergy/AdvReac Type Severity Reaction Status Date / Time methotrexate Allergy Hives Verified 05/23/25 14:11 interferons Allergy Unknown Hives Uncoded 09/18/24 09:03 sulfa Allergy Unknown Hives Uncoded 09/18/24 09:03 Review of Systems Musculoskeletal: Musculoskeletal: Reports arthralgias, Reports joint swelling and Reports limited range of motion PMFSH Past Medical History Medical History Raynaud disease Psoriasis TIA (transient ischemic attack) High cholesterol HTN (hypertension) Social History Social History Advance Directives: No Advance Directives Information Provided: No Physical Exam ED Vital Signs: Vital Signs - 24 hr 05/23/25 14:07 05/23/25 16:00 Temperature 97.3 F 97.3 F Pulse Rate 83 83 Respiratory Rate 16 16 Blood Pressure 187/89 H 187/89 H Pulse Oximetry 97 97 Oxygen Delivery Method Room Air Room Air BMI result Body Mass Index 29.4 Const General: healthy appearing, comfortable, no acute distress, alert and awake Nutritional Appearance: well nourished Orientation/consciousness: patient oriented x3 HENMT Head: Yes normocephalic and Yes atraumatic Eyes Eyelids: Yes eyelids normal Conjunctivae: conjunctivae normal Sclerae: sclerae normal Corneas: corneas normal Pupils: Equal, round and reactive pupils present EOM: EOMs intact bilaterally Neck Neck: Yes full ROM Cardio Rate: regular rate Rhythm: regular rhythm Skin General skin exam: elasticity normal Neuro General: patient oriented x3 Cranial nerves: Yes Equal, round and reactive pupils present and Yes Bilaterally intact EOM present Cognition (Neuro): normal cognition Extrem Other: The patient does have some mild edema to the right foot. There was some ecchymosis along the lateral aspect of the right foot. There are no open wounds, no visual or palpable deformities. No calf tenderness Course Course Course Narrative: RME, this is a rapid medical exam performed by Rafy Boo please refer to primary provider for complete H&P- 55-year-old female presents for evaluation of right foot pain. She reports that her dog bit her foot 2-1/2 or 3 weeks ago. This did not break the skin. She reports swelling to the foot. She went to urgent care today and was sent to the ER to ?rule out acute fracture versus compartment syndrome. ? The patient has no pain to the right lower leg, just the foot just proximal to the toes. Medical Decision Making Medical Decision Making MDM Narrative: 55-year-old female presents for evaluation of right foot pain after being bit by a dog 2-1/2 weeks ago. There was no skin breakdown, no no purulence, no signs of infection. She has an outpatient x-ray which I had our radiology department upload for viewing. The patient will be placed in a postop shoe. Differential Diagnosis Differential Diagnoses: The differential diagnosis associated with the presentation includes Contusion Lisfranc fracture Plantar fasciitis Puncture wound Discharge Plan Discharge Clinical Impression: Acute pain of right foot Patient Disposition: Home, Self-Care Instructions: Arthralgia (ED) Additional Instructions: In his possible that you have a fracture of the right foot. Given the pain and swelling I think that it is actually likely you have an acute fracture. You may follow up with Orthopedics. You should try to stay off your foot and elevate it while you were resting. Use ice as needed for pain and swelling. Follow up with your primary doctor, return for new or worsening symptoms Prescriptions: No Action meloxicam 15 mg tablet 15 mg PO DAILY Qty: 30 2RF Rx Instructions: Call Dr. Roberts's office in regards to lab results. Anoro Ellipta 62.5-25 mcg/actuation blister with device 1 ea inhalation DAILY rosuvastatin 5 mg tablet 5 mg PO DAILY losartan 100 mg tablet 100 mg PO DAILY metoprolol tartrate 100 mg tablet 100 mg PO DAILY sucralfate [Carafate] 100 mg/mL suspension PO pramipexole 0.5 mg tablet 0.5 mg PO DAILY amlodipine 10 mg tablet 10 mg PO DAILY clonazepam 0.5 mg tablet PO aspirin 81 mg tablet,delayed release (DR/EC) 81 mg PO DAILY venlafaxine 150 mg capsule,extended release 24hr 150 mg PO DAILY (DME) CPAP Machine/Device Device See Rx Instructions .ROUTE Rx Instructions: As directed albuterol sulfate [Ventolin HFA] 90 mcg/actuation HFA aerosol inhaler inhalation loratadine 10 mg tablet 10 mg PO DAILY diclofenac sodium 1 % gel topical BID hydrochlorothiazide 12.5 mg tablet 12.5 mg PO DAILY celecoxib 200 mg capsule 200 mg PO BID Qty: 180 0RF leflunomide 20 mg tablet 20 mg PO DAILY Qty: 30 2RF Humira(CF) Pen 40 mg/0.4 mL pen injector kit 40 mg subcut Q14D Qty: 2 2RF [place] [facility] [place] [facility] [place] Group] Referral Note: right foot injury Stand Alone Forms: Work/School Release Interventions: ED Discharge Assessment Last Done: 05/23/25 16:00 Discharge Date/Time: 05/23/25 16:02 Print Language: [place]
[2025-05-23 16:00] VITALS: BP 187/89; PULSE 83; RESP 16; TEMP 36.3; O2SAT 97
--- OUTSIDE RECORDS SUMMARY | 2025-05-23 16:05 | XMS_ITS | Clinical Summary ---
Author Organization [facility] [address] [place] [address] Address [address] [facility] [place] Phone Care Team Providers Care Manager Process Name Role Phone Loida Izaguirre MD Primary Care Provider [phone] Allergies Active Allergy Reactions Criticality Noted Date Comments Interferons 02/19/2021 Methotrexate Hives 07/11/2022 Other Hives High 05/09/2018 Interferon Abdiel Sulfate Ion Hives Low 05/09/2018 Medications adalimumab (Humira,CF, Pen) 40 mg/0.4 mL pen Inject into the skin every 14 days. Active clonazePAM (KlonoPIN) 0.5 mg tablet Take 0.5 mg by mouth at bedtime as needed. Active venlafaxine XR (EFFEXOR-XR) 150 mg 24 hr capsule Take 150 mg by mouth daily. Active loratadine (CLARITIN) 10 mg tabletIndication s:Non-seasonal allergic rhinitis due to other allergic trigger Take 1 tablet (10 mg total) by mouth 1 (one) time each day. 90 tablet 3 4 025 Active umeclidinium-jony anteroL (Anoro Ellipta) 62.5-25 mcg/actuation inhalerIndicatio ns:Chronic obstructive pulmonary disease with acute lower respiratory infection (CMS/HCC V24, CMS/HCC V28) Inhale 1 puff by mouth 1 (one) time each day. 3 each 3 4 Active albuterol HFA (Ventolin HFA) 90 mcg/actuation inhalerIndicatio ns:Chronic obstructive pulmonary disease with acute lower respiratory infection ([facility] V24, CMS/[facility] V28) Inhale 2 puffs by mouth every 4 (four) hours if needed for wheezing. 54 g 3 4 Active sucralfate (CARAFATE) 1 gram tablet TAKE 1 TABLET BY MOUTH FOUR TIMES A DAY 120 tablet 5 5 Active omeprazole (PriLOSEC) [address] capsule TAKE 1 CAPSULE BY MOUTH DAILY ON EMPTY STOMACH, WAIT 30 MINUTES AND THEN EAT TO ACTIVATE MEDICATION. 90 capsule 1 5 Active fluticasone propionate (FLONASE) 50 mcg/actuation nasal sprayIndications :Allergy status to unspecified drugs, medicaments and biological substances Administer 2 sprays into each nostril 1 (one) time each day. Shake gently. Before first use, prime pump. After use, clean tip and replace cap. 32 mL 3 5 Active aspirin 81 mg EC tablet Take 1 tablet (81 mg total) by mouth 1 (one) time each day. 90 tablet 5 Active diclofenac (VOLTAREN) 1 % topical gel APPLY 1 GRAM TOPICALLY 4 TIMES DAILY NEEDED (PAIN). 400 g 1 5 Active metoprolol tartrate (LOPRESSOR) 100 mg tablet TAKE 1 TABLET BY MOUTH EVERYDAY AT BEDTIME 90 tablet 1 5 Active rosuvastatin (CRESTOR) 5 mg tablet TAKE 1 TABLET BY MOUTH EVERYDAY AT BEDTIME 90 tablet 1 5 Active amLODIPine (NORVASC) 10 mg tablet TAKE 1 TABLET BY MOUTH EVERYDAY AT BEDTIME 90 tablet 1 5 Active losartan (COZAAR) 100 mg tablet Take 1 tablet (100 mg total) by mouth at bedtime. 90 tablet 1 5 Active isosorbide mononitrate (IMDUR) 30 mg 24 hr tabletIndication s:Other chest pain Take 1 tablet (30 mg total) by mouth 1 (one) time each day. Do not crush or chew. 30 each 11 5 026 Active famotidine (PEPCID) 20 mg tablet 4 025 Discontin ued(Thera py completed ) montelukast (SINGULAIR) 10 mg tabletIndication s:Non-seasonal allergic rhinitis due to other allergic trigger Take 1 tablet (10 mg total) by mouth at bedtime. Sig: TAKE 1 TABLET BY MOUTH AT BEDTIME 90 tablet 3 4 025 Discontin ued(Thera py completed ) hydroCHLOROthiaz kenroy 12.5 mg tabletIndication s:Primary hypertension Take 1 tablet (12.5 mg total) by mouth 1 (one) time each day. 30 each 5 025 Discontin ued(Reord er) hydroCHLOROthiaz kenroy 12.5 mg tabletIndication s:Primary hypertension Take 1 tablet (12.5 mg total) by mouth 1 (one) time each day. 30 each 5 025 Discontin ued(Patie nt Discharge ) Hospital, Clinic, or Other Facility Administered Medication Ordered Dose Route Frequency Start Date End Date Status TC-99M tetrofosmin P radio-isotope injection 30.3 millicurie 30.3 millicurie IV Once in imaging 05/06/2025 Acti ve TC-99M tetrofosmin P radio-isotope injection 9 millicurie 9 millicurie IV Once in imaging 05/06/2025 05/06/2025 Ended TC-99M tetrofosmin P radio-isotope injection 30.3 millicurie 30.3 millicurie IV Once in imaging 05/06/2025 05/06/2025 Ende d Active Problems Problem Noted Date Diagnosed Date Chest pain 05/22/2025 Assessment & Plan (05/23/2025 11:12 AM EDT): The patient came for evaluation due to [...] cardiac CT scan is recommended by the 202 chest pain guidelines for evaluation of patients [...] to the hospital if she develops any chest discomfort at rest or worsening chest discomfort with [...] each day. Do not crush or chew. Abnormal EKG 05/22/2025 Internal hemorrhoids 05/29/2024 Congenital diaphragmatic hernia 05/15/2023 Overview (10/25/2024): Bochdalek hernia on the right Hiatal hernia 05/15/2023 Sarcoid 09/01/2022 Microalbuminuria 01/06/2022 COPD (chronic obstructive pu lmonary disease) (CMS/HCC V24, CMS/HCC V28) 01/04/2022 Obesity (BMI 30.0-34.9) 01/04/2022 Hyperlipidemia 05/29/2020 Overview (10/25/2024): Assessment & Plan (05/23/2025 11:12 AM EDT): The patient has a history of hyperlipidemia. The patient is currently on rosuvastatin 5 mg orally daily. We will order a new lipid panel to evaluate the patient's current lipid control and determine if any adjustment are needed in the lipid lowering therapy. Orders: Comprehensive metabolic panel; Future Lipid panel with reflex to direct LDL; Future Lipoprotein A; Future Left carpal tunnel syndrome 05/29/2020 Prediabetes 09/26/2019 Overview (05/29/2024): Hba1c- 5.7 08/2019 Subclinical hypothyroidism 05/20/2019 Abnormal brain MRI 04/22/2019 Overview (05/29/2024): 03/15. Dr. Zimmerman: microvascular disease, ectatic left vertebral artery Ataxia 04/22/2019 Overview (10/25/2024): On clonazepam, sees Dr. Zimmerman Cerebral microvascular disease 04/17/2019 Overview (05/29/2024): Dr. Zimmerman Complex ovarian cyst 10/18/2018 Raynaud's phenomenon 10/18/2018 Spinal stenosis 10/18/2018 Constipation 10/08/2018 Anxiety 05/09/2018 Chronic hepatitis C (CMS/HCC V24, CMS/HCC V28) 0 05/09/2018 Overview (10/25/2024): Negative titers 05/2018 Colon polyps 05/09/2018 Depression 05/09/2018 Overview (05/29/2024): Follows with psychiatrist in [place] Taking effexor for 14 yrs GERD (gastroesophageal reflux disease) 8 Overview (10/25/2024): HTN (hypertension) 05/09/2018 Overview (10/25/2024): Assessment & Plan (05/23/2025 11:12 AM EDT): The patient has a history of arterial hypertension. The patient's blood pressure today was noted to be well controlled. We'll continue the current antihypertensive medication regimen. Orders: Ambulatory referral to Cardiology ECG 12 lead Psoriasis 05/09/2018 Overview (05/29/2024): On topical steroid PTSD (post-traumatic stress disorder) 05/09/2018 Foot fracture, right 04/18/2018 Rheumatoid arthritis ([facility] V24, [facility] V28) Encounters Date Type Department Care Team Description 05/23/2025 10:20 AM EDT Office Visit [facility] Cardiology [facility] [address] [place] [address] Mir Ferreira MD Other chest pain (Primary Dx); Primary hypertension; Pure hypercholesterolemia; Abnormal cardiovascular stress test; Substernal chest pain 05/23/2025 Telephone [facility] [address] [place] [address] Mir Ferreira MD 05/09/2025 Telephone [facility] [address] [place] [phone] Loida Izaguirre MD 05/06/2025 1:00 PM EDT Ancillary Procedure [facility] [address] [place] [address] Primary hypertension; Substernal chest pain; Prediabetes; Hyperlipidemia, unspecified hyperlipidemia type 04/24/2025 1:30 PM EDT Office Visit Adult Medicine [address] [phone] Rosita Ray PA Primary hypertension (Primary Dx); Substernal chest pain; Prediabetes; Hyperlipidemia, unspecified hyperlipidemia type; Gastroesophageal reflux disease, unspecified whether esophagitis present 03/11/2025 4:00 PM EDT Office Visit Adult Medicine [address] [phone] Ana Jaquez NP Primary hypertension (Primary Dx); Elevated blood pressure reading 02/25/2025 11:02 AM EDT - 02/25/2025 11:59 PM EDT Hospital Encounter [address] [phone] Right wrist pain; Injury of right wrist, initial encounter Discharge Disposition: Home or Self Care 02/25/2025 10:30 AM EDT Office Visit Adult Medicine [facility] [address] [place], [place] [phone] Minerva Baum PA Right wrist pain (Primary Dx); Injury of right wrist, initial encounter; Primary hypertension; Elevated blood pressure reading 02/25/2025 Nurse Triage Adult Medicine [facility] [address] [place], [place] [phone] Loida Izaguirre MD from Last 3 Months Immunizations Name Administration [...] Surgery Date Site/Laterality Comments KNEE SURGERY Left age 13 ANKLE SURGERY Right internal fixation--- pin removed later HAND SURGERY Right carpal tunnel and trigger finger TUBAL LIGATION OOPHORECTOMY Right for cyst COLONOSCOPY 2010 with polyps COLONOSCOPY 08/2019 : Performed September 24 with along with EGD-repeat colonoscopy in 10 years ESOPHAGOGASTRODUODENOSCOPY 08/2019 Performed with colonoscopy on September 24-with Dr. Cruz. Positive for erythema and antrum and duodenum ESOPHAGOGASTRODUODENOSCOPY 12/23/2020 Visually normal; mapping biopsies done to evaluate intestinal metaplasia of the gastric mucosa. Pathology: Normal, no intestinal metaplasia. ESOPHAGOGASTRODUODENOSCOPY Formed on December 23, 2020 CARPAL TUNNEL RELEASE 02/08/2021 Left Medical History Medical History Date Comments Spinal stenosis 10/18/2018 Raynaud's phenomenon 10/18/2018 PTSD (post-traumatic stress disorder) 05/09/2018 Psoriasis 05/09/2018 HTN (hypertension) 05/09/2018 GERD (gastroesophageal reflux disease) 8 Foot fracture, right 04/18/2018 Depression 05/09/2018 Constipation 10/08/2018 Colon polyps 05/09/2018 Chronic hepatitis C ([facility] V24, [facility] V28) 05/09/2018 treated at [facility] in [place]. Negative titers 05/2018 Anxiety 05/09/2018 Complex ovarian cyst 10/18/2018 Subclinical hypothyroidism 05/20/2019 Internal hemorrhoids COPD (chronic obstructive pu lmonary disease) ([facility] V24, [facility] V28) 01/04/2022 Hyperlipidemia 05/29/2020 Rheumatoid arthritis ([facility]/ C V24, [facility] V28) Sarcoidosis Family History Medical History Relation Name Comments [...] tarted: 08/28/1982 Smokeless Tobacco: Never Quit: 08/31/2002 Tobacco Cessation:Counseling Given: Not Answered Alcohol Use Standard Drinks/Week Comments No 0 (1 standard drink = 0.6 oz pur e alcohol) Comments Unknown Sex and Gender Information Value Date Recorded Sex Assigned at Not on file Legal Sex Female 9:57 AM EST Gender Identity Not on file Sexual Orientation Not on file Obstetrics History Last Filed Vital Signs Vital Sign Reading Time Taken Comments Blood Pressure 130/88 05/23/2025 10:06 AM EDT Pulse 84 05/23/2025 10:06 AM EDT Temperature 35.8 C (96.4 F) 04/24/2025 1:28 PM EDT Respiratory Rate 16 04/24/2025 1:28 PM EDT Oxygen Saturation 98% 05/23/2025 10:06 AM EDT Inhaled Oxygen Concentration - - Weight 74.4 kg (164 lb) 05/23/2025 10:06 AM EDT Height 160 cm (5' 3 ) 05/23/2025 10:06 AM EDT Body Mass Index 29.05 05/23/2025 10:06 AM EDT Plan of Treatment Upcoming Encounters Date Type Department Care Team (Late st Contact Info) Description 06/12/2025 8:45 AM EDT Office Visit Adult Medicine [facility] [address] [place], [place] [phone] Rosita Ray PA [address] [place], [place] 08/18/2025 2:00 PM EST Ancillary Procedure [facility] Cardiology [facility] [address] [place] [address] 09/18/2025 8:40 AM EST Office Visit [facility] Cardiology [facility] [address] [place] [address] [place] [phone] Ramona Vargas NP [address] [place] [address] [place] [phone] Health Maintenance Due Date Last Done Comments Hepatitis B Vaccines (1 of 3 - 19+ 3-dose series) 01/21/1988 Pneumococcal Vaccine: 50+ Years (2 of 2 - PCV) 10/07/2017 10/07/2016 Zoster Vaccines (1 of 2) 2019 HIV Screening 08/06/2022 Social Influencers of Health Screening 08/06/2022 COVID-19 Vaccine (2 - Moderna risk series) 08/09/2022 07/12/2022 Colorectal Cancer Screening: Colonoscopy 09/24/2024 09/24/2019 Breast Cancer Screening 02/27/2025 02/28/20 23, 02/25/2022, 06/13/2020, Additional history exists Influenza Vaccine (#1) 2025 2, 05/12/2020, 09/02/2019, Additional history exists Cervical Cancer Screening: HPV 09/01/2025 09/01/2020 Hypertension/CHF/CAD Annual BMP Blood Test 01/07/2026 01/07/2025, 05/01/2024, 05/01/2024 DTaP,Tdap,and Td Vaccines (2 - Td or Tdap) 09/10/2028 09/10/2018 Cholesterol Screening (Lipid Panel) 05/01/2029 05/01/2024, 05/01/2024 RSV Immunization Adult Patients (1 - 1-dose 75+ series) 01/21/2044 MMR Vaccines Aged Out 10/07/2016 No longer eligi ble based on patient's age to complete this topic Hepatitis C Screening Completed 07/15/2019 Depression Screening Completed 10/24/2024, 05/01/20 HIB Vaccines Aged Out No longer eligi [...] patient's age to complete this topic Meningococcal B Vaccine Aged Out No l onger eligible based on patient's age to complete [...] EDT Abnormal cardiovascular stress test Primary hypertension NM EXERCISE STRESS TEST W/ MYOCARDIAL PERFUSION Routine 05/06/2025 3:49 PM EDT Primary hypertension Substernal chest pain Prediabetes Hyperlipidemia, unspecified hyperlipidemia type ECG 12-LEAD Routine 04/24/2025 5:12 PM EDT Substernal chest pain XR WRIST 3+ VIEWS RIGHT Routine 02/25/2025 11:10 AM EDT Right wrist pain Injury of right wrist, initial encounter COMPREHENSIVE METABOLIC PANEL Routine 01/07/2025 8:42 AM EDT Subclinical hypothyroidism Prediabetes Mixed hyperlipidemia Primary hypertension HM DEPRESSION SCREENING Routine 05/01/2024 LIPID PANEL Routine 05/01/2024 SCREENING MAMMOGRAPHY BI 2-VIEW BREAST INC CAD Routine 02/27/2023 7:52 AM EDT Encounter for other screening for malignant neoplasm of breast HPV Routine 09/01/2020 COLONOSCOPY Routine 09/24/2019 HEPATITIS C SCREENING Routine 07/15/2019 from Last 3 Months or Most Recently Relevant to Health Maintenance Results * ECG 12 lead (05/23/2025 10:15 AM EDT) Only the most recent of2 resultswithin the time period is included. Ventricular Rate ECG 80 BPM GEMUSE Atrial Rate 80 BPM GEMUSE P-R Interval 150 ms GEMUSE QRS Duration 84 ms GEMUSE Q-T Interval 394 ms GEMUSE QTc 454 ms GEMUSE P Wave [place] 57 degrees GEMUSE R [place] 46 degrees GEMUSE T [place] 61 degrees GEMUSE ECG Interpretation Normal sinus rhythm Normal ECG When compared with ECG of 22-OCT-2018 16:03, Nonspecific T wave abnormality no longer evident in Anterolateral leads Confirmed by MIR FERREIRA ([id number]) on 05/23/2025 10:50:08 AM GEMUSE 05/23/2025 10:1 5 AM EDT 05/23/2025 10:50 AM EDT us Mir Ferreira MD ECG ORDERABLES Final Result GEMUSE * NM EXERCISE STRESS TEST W/ MYOCARDIAL PERFUSION (05/06/2025 3:49 PM EDT) Exercise/injec tion duration (min) 5 CV PACS STRESS Exercise/injec tion duration (sec) 45 CV PACS STRESS Peak SBP 210 mmHg CV PACS STRESS Peak DBP 80 mmHg CV PACS STRESS Peak HR 155 bpm CV PACS STRESS Baseline HR 111 bpm CV PACS STRESS Baseline SBP 180 mmHg CV PACS STRESS Baseline DBP 105 mmHg CV PACS STRESS Estimated workload 7.0 METS CV PACS STRESS Percent HR 95 % CV PACS STRESS Rate Pressure Product 32,550.0 mmHg*bpm CV PACS STRESS Target HR 139 bpm CV PACS STRESS Angina Index 0 CV PACS STRESS TID 0.79 CV PACS STRESS Nuc Stress EF 55 % CV PAC S STRESS Nuc Rest EF 55 % CV PACS STRESS BSA 1.82 m2 CV PACS STRESS Anatomical Region Laterality Modality Nuclear Medicine 05/06/2025 2:04 PM EDT 05/06/2025 2:33 PM EDT Impressions 05/07/2025 8:06 PM EDT 1. Abnormal exercise nuclear stress test. 2. Exercise protocol: The patient exercised for 5 minutes and 45 seconds. The patient achieved 95% of the Max predicted heart rate 3. Functional capacity: Average functional capacity for age and gender 4. Symptoms: The patient developed mild chest discomfort at peak exercise which resolved in the recovery stage. 5. Stress ECG: No evidence of significant ischemic ECG changes at peak exercise (in the setting of an abnormal baseline). However, the patient did develop a new right bundle branch block during the recovery stage. The presence of a new right bundle branch block during recovery from an exercise stress test is usually benign but it may be associated with underlying coronary artery disease. 6. Myocardial perfusion imaging: - Myocardial perfusion imaging revealed no areas of ischemia or infarction after attenuation correction was applied. 7. TID was normal 0.79. 8. Gated images revealed normal LV wall motion and thickening; with a normal LV systolic function (LVEF 55%). In summary, on the current study the patient had symptoms with exertion and an abnormal EKG during the recovery stage while having a normal myocardial perfusion on the attenuation corrected images. Even though the myocardial perfusion images did not show any evidence of ischemia or infarct, would recommend to consider further evaluation with a cardiac CT scan or left heart catheterization given the exertional symptoms and the abnormal EKG noted during the recovery stage. Narrative 05/07/2025 8:06 PM EDT Stress Findings A Sathish protocol stress test was performed. Overall, the patient's exercise capacity was average. Total stress time was 5 min and 45 sec. The patient experienced no angina during the test. The test was stopped because the patient experienced fatigue. The patient's hemodynamic response was adequate for diagnosis. Blood pressure demonstrated a normal response in the setting of resting hypertension likely aggravated by beta antoni withdrawal. Late recovery BP improved to 160/84. Heart rate demonstrated a normal response. Sinus tach at rest having held beta antoni for 48 hours prior to test. The patient reported mild left sided chest discomfort near peak exercise that resolved quickly in recovery. ECG 55 yo female with HTN, hyperlipidemia, prediabetes. Off metoprolol and amlodipine x 48 hours. The ECG shows sinus tachycardia with nonpecific ST abnormality. No significant ischemic changes in the setting of an abnormal baseline. A new right bundle branch block was seen during recovery. The patient did not have any significant ischemic changes at peak exercise, in the setting of an abnormal baseline. However, the patient did develop a right bundle branch block in the recovery stage. Nuclear Study Quality Study technique: MPI, SPECT, multi, rest and stress, 1 day and gated. Overall image quality is good. CT attenuation correction was utilized. No radiopharmaceutical dose was extravasated. The time from injection to rest imaging is 50 mins. The time from injection to stress imaging is 50 mins. Perfusion Defect Conclusion There is no evidence of transient ischemic dilation (TID). Stress Function Comments Left ventricular systolic function post-stress is normal. Stress ejection fraction is 55%. Rest Function Comments Left ventricular function at rest was normal. Resting ejection fraction was 55%. Stress Combined Conclusion SCAN FINDINGS: Nuclear imaging of the left ventricle reveals normal cavity size at rest with no change on stress imaging. Myocardial perfusion imaging of the left ventricle revealed a large in size and moderate in intensity mostly fixed perfusion defect in the basal to mid inferior wall, basal septal wall, and basal anterior wall. No evidence of any significant reversible perfusion defects. The raw images demonstrate the presence of soft tissue attenuation. CT attenuation correction was applied to the study which completely corrects the previously mentioned perfusion abnormality. As such, the previously mentioned perfusion abnormality was likely secondary to soft tissue attenuation artifact. No evidence of any fixed or reversible perfusion defects on the attenuation corrected images. Gated SPECT imaging was performed which demonstrated normal LV function and thickening with a calculated LVEF of 55% Perfusion Scoring Resting Summed Score: 0 Percent Normal: 0.00% The left ventricular perfusion is normal. AC resting images Perfusion Scoring Stress Summed Score: 0 Percent Normal: 0.00% The left ventricular perfusion is normal. AC stress images Perfusion Scores: SRS Score: 0 Percentage Abnormal: 0.00% Perfusion Scores: SSS Score: 0 Percentage Abnormal: 0.00% Perfusion Scores: SDS Score: 0 Percentage Abnormal: 0.00% Rosita FELIX CV STRESS PROCEDURES Final Resul t * XR Wrist 3+ Views Right (02/25/2025 11:10 AM EDT) Anatomical Region Laterality Modality Upper Extremities, Wrist Right Radiogr aphic Imaging 02/25/2025 8:29 PM EDT Impressions 02/25/2025 8:34 PM EDT No acute fracture detected. POS - [id number] -------- FINAL REPORT -------- Dictated By: Lakia Vigil Dictated Date: 02/25/2025 20:29 ET Assigned Physician: Lakia Vigil Reviewed and Electronically Signed By: Lakia Vigil Signed Date: 02/25/2025 20:34 ET Workstation ID: [id number] Transcribed By: Self Edit Transcribed Date: 02/25/2025 20:29 ET Narrative 02/25/2025 8:34 PM EDT EXAM: Right wrist x-ray HISTORY: Painful and swollen right wrist after a fall 3 weeks ago. COMPARISON: None, correlation with right hand radiography 09/02/2020 FINDINGS: 5 views were performed. Bones are osteopenic. No acute fracture or malalignment detected. Old healed fracture deformity of the fifth metacarpal again noted. Joint spaces are maintained. No destructive bone lesion. No soft tissue calcifications. Procedure Note Lakia Vigil MD - 02/25/2025 EXAM: Right wrist x-ray HISTORY: Painful and swollen right wrist after a fall 3 weeks ago. COMPARISON: None, correlation with right hand radiography 09/02/2020 FINDINGS: 5 views were performed. Bones are osteopenic. No acute fracture or malalignment detected. Oldhealed fracture deformity of the fifth metacarpal again noted. Jointspaces are maintained. No destructive bone lesion. No soft tissuecalcifications. IMPRESSION: No acute fracture detected. POS - [id number] -------- FINAL REPORT -------- Dictated By: Lakia Vigil Dictated Date: 02/25/2025 20:29 ET Assigned Physician: Lakia Vigil Reviewed and Electronically Signed By: Lakia Vigil Signed Date: 02/25/2025 20:34 ET Workstation ID: [id number] Transcribed By: Self Edit Transcribed Date: 02/25/2025 20:29 ET us Minerva Bautista PA IMG XR PROCEDURES Final Result * (ABNORMAL) Comprehensive metabolic panel (01/07/2025 8:42 AM EDT) Sodium 139 133 - 145 mmol/L LAB CHEMISTRY METHOD 01/07/2025 1:43 PM [facility] Potassium 3.5 3.5 - 5.5 mmol/L LAB CHEMISTRY METHOD 01/07/2025 1:43 PM [facility] Chloride 102 96 - 110 mmol/L LAB CHEMISTRY METHOD 01/07/2025 1:43 PM [facility] CO2 27 21 - 32 mmol/L LAB CHEMISTRY METHOD 01/07/2025 1:43 PM [facility] Anion Gap 10 3 - 11 LAB CHEMISTRY METHOD 01/07/2025 1:43 PM [facility] Glucose 146(H) 70 - 100 mg/dL LAB CHEMISTRY METHOD 01/07/2025 1:43 PM [facility] BUN 8 5 - 25 mg/dL LAB CHEMISTRY METHOD 01/07/2025 1:43 PM [facility] Creatinine 0.64 0.50 - 1.10 mg/dL LAB CHEMISTRY METHOD 01/07/2025 1:43 PM [facility] eGFR 105 >=60 mL/min/1. 73m2 LAB CHEMISTRY METHOD 01/07/2025 1:43 PM [facility] Comment:Calculation based on the Chronic Kidney Disease Epidemiology Collaboration (CKD-EPI) equation refit without adjustment for race. BUN/Creatinine Ratio 12.5 LAB CHEMISTRY METHOD 01/07/2025 1:43 PM EDT [facility] Calcium 9.1 8.5 - 10.5 mg/dL LAB CHEMISTRY METHOD 01/07/2025 1:43 PM [facility] AST (SGOT) 27 10 - 42 unit/L LAB CHEMISTRY METHOD 01/07/2025 1:43 PM [facility] ALT (SGPT) 28 10 - 60 unit/L LAB CHEMISTRY METHOD 01/07/2025 1:43 PM [facility] Alkaline Phosphatase 158(H) 42 - 121 unit/L LAB CHEMISTRY METHOD 01/07/2025 1:43 PM [facility] Total Protein 7.5 6.0 - 8.0 g/dL LAB CHEMISTRY METHOD 01/07/2025 1:43 PM [facility] Albumin 3.6 3.2 - 5.0 g/dL LAB CHEMISTRY METHOD 01/07/2025 1:43 PM [facility] Total Bilirubin 0.4 0.0 - 1.4 mg/dL LAB CHEMISTRY METHOD 01/07/2025 1:43 PM [facility] Blood Venous blood specimen / Unknown Venipuncture / Unknown 01/07/2025 8:42 AM EDT 01/07/2025 8:42 AM EDT Kelsey FELIX LAB BLOOD ORDERABLES Final Re sult [facility] [address] [place] [address], * Depression Screening (05/01/2024) Pathologist [facility] Depression Screening abstracted Historical Provider HEALTH MAINTENANCE Final Result * Lipid panel (05/01/2024) LDL/HDL Ratio 3 0 - 4 Triglycerides 117 0 - 150 mg/dL Cholesterol 156 0 - 200 mg/dL HDL 59 >=40 mg/dL LDL Cholesterol 74 0 - 100 mg/dL Blood Venous blood specimen / Unknown Historical Provider LAB BLOOD ORDERABLES Leidy l Result * SCREENING MAMMOGRAPHY BI 2-VIEW BREAST INC [...] are composed of fatty and fibroglandular tissue. There is sequela of breast reduction mammoplasty. No suspicious mass, architectural distortion or suspicious calcifications [...] (<15%) Luma Gonzalez DO IMG XR PROCEDURES Final Resul t * Hm Cervical Cancer Screening: HPV (09/01/2020) [facility] Cervical Cancer Screening: HPV negative, abstracted Historical Provider HEALTH MAINTENANCE Final Result * Colonoscopy (09/24/2019) [facility] Colonoscopy no interpretation , abstracted Anatomical Region Laterality Modality Other Historical Provider HEALTH MAINTENANCE Final Result * Hepatitis C Screening (07/15/2019) [facility] Hepatitis C Screening abstracted Historical Provider HEALTH MAINTENANCE Final Result from Last 3 Months or Most Recently Relevant to Health Maintenance Insurance [facility] [facility] Care Teams Manager Process Relationship Specialty Start Date End Date Loida Izaguirre MD [address], [place] PCP - General Internal Medicine 09/01/21
--- OUTSIDE RECORDS SUMMARY | 2025-05-23 16:05 | XMS_ITS | Encounter Summary ---
Author Organization [facility] Address [address] [place] [address] Care Team Providers Care Cryptographic Vulnerability Analyst Name Role Phone Loida Izaguirre MD Primary Care Provider [phone] Encounter Details Date Type Department Care Team (Late st Contact Info) Description 05/23/2025 Telephone [facility] [address] [place] [address] Dr [address] [place] [address] Sanya Ferreira MD [address] [place] [address] Dr [address] [place] [address] Social History Tobacco Use Types Packs/Day Years [...] as of this encounter Progress Notes * Sanya Ferreira MD - 05/23/2025 11:13 AM EDT Please schedule patient for cardiac CT scan to be done at [facility]. Diagnosis: Chest pain. Abnormal nuclear stress test. documented in this encounter Plan of Treatment Upcoming Encounters Date Type Department Care Team (Late st Contact Info) Description 06/12/2025 8:45 AM EDT Office Visit Adult Medicine [facility] [address] [place], [place] [phone] Rosita Ray PA [address], [place] 08/18/2025 2:00 PM EST Ancillary Procedure [facility] Cardiology [facility] [address] [place] [address] 09/18/2025 8:40 AM EST Office Visit [facility] Cardiology [facility] [address] [place] [phone] Ramona Vargas NP [address] [place] [address] Dr [address] [place] [phone] documented as of this encounter Visit Diagnoses Not on filedocumented in this encounter Additional Health Concerns Assessment Noted Time PHQ-9 Depression Total Score: 0 10/24/19 25 1:29 PM EST documented as of this encounter Care Teams Cryptographic Vulnerability Analyst Relationship Specialty Start Date End Date Loida Izaguirre MD [address] [place], [place] PCP - General Internal Medicine 09/01/21 documented as of this encounter
== END 2025-05-23 16:02 | disposition home or self-care (01) ==
PROVIDERS: Emergency Provider Emergency Medicine Emergency Medical Services; PCP Internal Medicine
DX: M79.671 Pain in right foot (principal); I10 Essential (primary) hypertension; Z79.899 Other long term (current) drug therapy; W54.0XXA Bitten by dog, initial encounter; Y93.89 Activity, other specified; Y92.098 Other place in other non-institutional residence as the place of occurrence of the external cause; Y99.8 Other external cause status; Z86.79 Personal history of other diseases of the circulatory system
CPT/HCPCS: 99282

== ENCOUNTER 2025-06-03 13:22 | Outpatient (AMB) | payer OTHER, SELFPAY ==
[2025-06-03 13:28] VITALS: BMI 29.0
--- NOTE | 2025-06-03 13:28 | MHC.OFFVIS ---
Vital Signs 06/03/25 13:28 Height 5 ft 3 in Weight 164 lb BMI 29.0 Intake Visit Reasons: New Pt - Right Foot Dog Bite- ? Fracture ~05/05/25 Intake Note: is a 55 year old female who presents today as a New Patient with complaints of Right Foot Pain S/P Dog Bite ~05/05/25. Patient was seen at [facility] where she reported a Dog Bite to the right foot with no skin puncture. Pain is felt in the Right foot just proximal to the toes. They placed her in a Post op Shoe. She states the swelling has improved however she is still experiencing pain on the top of her foot and she has been taking motrin as needed for her pain. Allergies methotrexate Allergy (Verified 06/03/25 13:29) Hives interferons Allergy (Unknown, Uncoded 09/18/24 09:03) Hives sulfa Allergy (Unknown, Uncoded 09/18/24 09:03) Hives Medication List - Last Reconciled 06/03/25 by Marissa Pollard DPM adalimumab (Humira(CF) Pen) 40 mg (0.4 mL) subcut Q14D albuterol sulfate 90 mcg/actuation (Ventolin HFA) inhalation amlodipine 10 mg PO DAILY aspirin 81 mg PO DAILY celecoxib 200 mg PO BID clonazepam mg PO CPAP (CPAP Machine/Device) As directed diclofenac sodium 1% topical BID hydrochlorothiazide 12.5 mg PO DAILY leflunomide 20 mg PO DAILY loratadine 10 mg PO DAILY losartan 100 mg PO DAILY meloxicam 15 mg PO DAILY metoprolol tartrate 100 mg PO DAILY pramipexole 0.5 mg PO DAILY rosuvastatin 5 mg PO DAILY sucralfate (Carafate) PO umeclidinium-vilanterol 62.5-25 mcg/actuation (Anoro Ellipta) 1 ea inhalation DAILY venlafaxine ER 150 mg PO DAILY HPI Comments Details: The patient is a 55-year-old female with a past medical history as seen below presenting with right foot pain and swelling following a dog bite. The incident occurred approximately four weeks ago, with the dog not breaking the skin but causing puncture mckeon. The patient initially did not seek medical attention, expecting improvement over time. The patient reports persistent moderate pain and swelling, which has slightly improved, but slight discoloration remains. She experiences numbness and tingling in the affected area and is unable to move her toes without pain. The pain is primarily located on the dorsal of the foot and intensifies with walking. The patient has a history of a right foot fracture from 2019, which healed without surgical intervention. She has been using ice and taking Motrin to manage the symptoms, which has provided some relief. The patient works as a cook cashier food prep and has been advised to wear a postop shoe to manage the condition. She denies any other pedal concerns. Denies any current nausea, vomiting, fever, or chills. [facility] Medical History (Reviewed 03/19/25 @ 08:46 by Mary Vargas [facility]) Raynaud disease Psoriasis TIA (transient ischemic attack) High cholesterol HTN (hypertension) Review of Systems Const Details: - Neurological: Reports numbness and tingling in the right foot. Denies other neurological symptoms. - Musculoskeletal: Reports pain and swelling in the right foot, especially when walking. Denies pain extending to the ankle. Physical Exam Vital Signs: BMI result Body Mass Index 29.0 Extrem Other: Right lower extremity focused physical exam: Derm: Scars from previous puncture wounds from previous dog bite noted to the dorsum of the midfoot. No active bleeding, purulence, or drainage noted. Minimal ecchymosis noted to the dorsum of the foot. Nonpitting Edema noted to the dorsum of the foot. No erythema noted. No maceration noted. No hyperkeratotic lesions noted. Vascular: DP/PT pulses palpable. Capillary refill time less than 3 seconds. Temperature gradient warm to warm. Pedal hair absent. Minimal varicosities noted. Neuro: Protective sensation is slightly diminished to light touch, patient reports intermittent numbness and tingling in the foot. MSK: Pain on palpation to the dorsum of the midfoot along the areas of 1st 2nd 3rd metatarsals. Range of motion of the forefoot reduced due to guarding from pain. Patient has difficulty with plantar flexion of toes. Range of motion of the ankle within normal limits. No crepitus noticed. No fluctuance noted. Mildly antalgic gait noted with the use of a postop shoe. No assistive device used. Ankle/foot/toe images:  1. Office Procedures AMB Podiatry Dressing Details of Procedure: Applied Funez compression (cast padding and Jed bandage) to the right foot/ankle. Patient is to continue using postop shoe. 50367 - Short leg splint Procedure code (CPT) selection complete Results Reviewed Results Reviewed: Ordered right foot three-view weight-bearing x-rays to be performed prior to next visit. Ordered labs to be performed prior to next visit. Assessment & Plan Assessment & Plan (1) Cellulitis of right foot: Code(s): L03.115 - Cellulitis of right lower limb Category: Medical (2) Right foot injury: Code(s): S99.921A - Unspecified injury of right foot, initial encounter Category: Medical Qualifiers: Encounter type: initial encounter Qualified Code(s): S99.921A - Unspecified injury of right foot, initial encounter (3) Dog bite of right foot: Code(s): S91.351A - Open bite, right foot, initial encounter; W54.0XXA - Bitten by dog, initial encounter Category: Medical Qualifiers: Encounter type: initial encounter Qualified Code(s): S91.351A - Open bite, right foot, initial encounter; W54.0XXA - Bitten by dog, initial encounter (4) Right foot pain: Code(s): M79.671 - Pain in right foot Category: Medical Plan Patient was informed and verbally consented to the use of an ambient scribe for clinic note documentation during this visit. I discussed with the patient the need for x-rays to evaluate the right foot condition and rule out fractures. We talked about the importance of continuing with ice and Motrin for symptom management. I advised keeping the foot wrapped and using a postop shoe to aid recovery. We also discussed the need to monitor for signs of infection, such as redness or drainage, and to seek care if these occur. A follow-up appointment was scheduled in two weeks to review the x-ray results and assess the patient's progress. - Ordered x-rays and labs to assess the current condition of the foot and rule out any fractures. - Continue RICE protocol and Motrin to manage pain and swelling. - Keep Funez compression clean, dry, and intact. Advised patient to cover dressing with a plastic bag when showering. - Patient may be weight-bearing as tolerated to the right foot in a surgical shoe. - Instructed the patient to seek immediate care if redness, drainage, or purulence develops. RTC in 2 weeks for re-evaluation and results. Orders: Orders Complete Blood Count Auto Diff Today L03.115 - Cellulitis of right lower limb, M79.671 - Pain in right foot, S91.351A - Open bite, right foot, initial encounter, S99.921A - Unspecified injury of right foot, initial encounter, W54.0XXA - Bitten by dog, initial encounter Comprehensive Met. Panel Today L03.115 - Cellulitis of right lower limb, M79.671 - Pain in right foot, S91.351A - Open bite, right foot, initial encounter, S99.921A - Unspecified injury of right foot, initial encounter, W54.0XXA - Bitten by dog, initial encounter XR foot RT min 3V Today L03.115 - Cellulitis of right lower limb, M79.671 - Pain in right foot, S91.351A - Open bite, right foot, initial encounter, S99.921A - Unspecified injury of right foot, initial encounter, W54.0XXA - Bitten by dog, initial encounter AMB Podiatry Dressing Today L03.115 - Cellulitis of right lower limb, M79.671 - Pain in right foot, S91.351A - Open bite, right foot, initial encounter, S99.921A - Unspecified injury of right foot, initial encounter, W54.0XXA - Bitten by dog, initial encounter Coding Level of Care Code New Pt Level 4 (36886) Diagnoses Cellulitis of right foot L03.115 Injury of right foot, initial encounter S99.921A Encounter type: initial encounter Dog bite of right foot, initial encounter S91.351A; W54.0XXA Encounter type: initial encounter Right foot pain M79.671 CPT Codes Podiatry Dressing - CPT: 42414 - Short leg splint ([id number]) Time Spent (min) 55
--- OUTSIDE RECORDS SUMMARY | 2025-06-03 16:23 | XMS_ITS | Encounter Summary ---
Author Organization [facility] Address [address] [place] [address] Care Team Providers Care Brooch Maker Novelty Name Role Phone Loida Izaguirre MD Primary Care Provider [phone] Encounter Details Date Type Department Care Team (Late st Contact Info) Description 05/23/2025 Telephone [facility] Cardiology Associates [facility] [address] [place] [address] Dr [address] [place] [address] Sanya Ferreira MD [address] [place] [address] Dr [address] [place] [address] Social History Tobacco Use Types [...] cardiac CT scan to be done at [facility]. Diagnosis: Chest pain. Abnormal nuclear stress test. documented in this encounter Plan of Treatment Upcoming Encounters Date Type Department Care Team (Late st Contact Info) Description 06/12/2025 8:45 AM EDT Office Visit Adult Medicine [facility] [address] [place], [place] [phone] Rosita Ray PA [address] [place], [place] 08/18/2025 2:00 PM EST Ancillary Procedure [facility] Cardiology [facility] [address] [place] [address] 09/18/2025 8:40 AM EST Office Visit [facility] Cardiology [facility] [address] [place] [phone] Ramona Vargas NP [address] [place] [address] [address] [place] [phone] documented as of this encounter Visit Diagnoses Not on filedocumented in this encounter Additional Health Concerns Assessment Noted Time PHQ-9 Depression Total Score: 0 10/24/19 25 1:29 PM EST documented as of this encounter Care Teams Brooch Maker Novelty Relationship Specialty Start Date End Date Loida Izaguirre MD [address] [place], [place] PCP - General Internal Medicine 09/01/21 documented as of this encounter
--- OUTSIDE RECORDS SUMMARY | 2025-06-03 16:23 | XMS_ITS | Clinical Summary ---
Author Organization [facility] [address] [place] [address] [address] [facility] [place] Phone Care Team Providers Care Carrier Blower Name Role Phone Loida Izaguirre MD Primary Care Provider [phone] Allergies Active Allergy Reactions Criticality Noted Date [...] mouth daily. Active loratadine (CLARITIN) 10 mg tabletIndicatio ns:Non-seasonal allergic rhinitis due to other allergic trigger Take 1 tablet (10 mg total) by mouth 1 (one) time each day. 90 tablet 3 08/22/20 24 025 Active umeclidinium-vi lanteroL (Anoro Ellipta) 62.5-25 mcg/actuation inhalerIndicati ons:Chronic obstructive pulmonary disease with acute lower respiratory infection (CMS/HCC V24, CMS/HCC V28) Inhale 1 puff by mouth 1 (one) time each day. 3 each 3 08/22/20 24 Active albuterol HFA (Ventolin HFA) 90 mcg/actuation inhalerIndicati ons:Chronic obstructive pulmonary disease with acute lower respiratory infection ([facility] V24, [facility] V28) Inhale 2 puffs by mouth every 4 (four) hours if needed for wheezing. 54 g 3 08/22/20 24 Active sucralfate (CARAFATE) 1 gram tablet TAKE 1 TABLET BY MOUTH FOUR TIMES A DAY 120 tablet 5 10/29/19 25 Active omeprazole (PriLOSEC) [address] capsule TAKE 1 CAPSULE BY MOUTH DAILY ON EMPTY STOMACH, WAIT 30 MINUTES AND THEN EAT TO ACTIVATE MEDICATION. 90 capsule 1 12/05/19 25 Active fluticasone propionate (FLONASE) 50 mcg/actuation nasal sprayIndication s:Allergy status to unspecified drugs, medicaments and biological substances Administer 2 sprays into each nostril 1 (one) time each day. Shake gently. Before first use, prime pump. After use, clean tip and replace cap. 32 mL 3 12/27/19 25 Active diclofenac (VOLTAREN) 1 % topical gel APPLY 1 GRAM TOPICALLY 4 TIMES DAILY NEEDED (PAIN). 400 g 1 04/02/20 25 Active metoprolol tartrate (LOPRESSOR) 100 mg tablet TAKE 1 TABLET BY MOUTH EVERYDAY AT BEDTIME 90 tablet 1 04/07/20 25 Active rosuvastatin (CRESTOR) 5 mg tablet TAKE 1 TABLET BY MOUTH EVERYDAY AT BEDTIME 90 tablet 1 04/08/20 25 Active amLODIPine (NORVASC) 10 mg tablet TAKE 1 TABLET BY MOUTH EVERYDAY AT BEDTIME 90 tablet 1 04/08/20 25 Active losartan (COZAAR) 100 mg tablet Take 1 tablet (100 mg total) by mouth at bedtime. 90 tablet 1 04/08/20 25 Active isosorbide mononitrate (IMDUR) 30 mg 24 hr tabletIndicatio ns:Other chest pain Take 1 tablet (30 mg total) by mouth 1 (one) time each day. Do not crush or chew. 30 each 05/23/20 25 026 Active aspirin 81 mg EC tablet TAKE 1 TABLET BY MOUTH EVERY DAY 90 tablet 1 05/29/20 25 Active aspirin 81 mg EC tablet Take 1 tablet (81 mg total) by mouth 1 (one) time each day. 90 tablet 02/26/20 25 025 Discontinued hydroCHLOROthia zide 12.5 mg tabletIndicatio ns:Primary hypertension Take 1 tablet (12.5 mg total) by mouth 1 (one) time each day. 30 each 04/24/20 025 Discontinued(P atient Discharge) Hospital, Clinic, or Other Facility Administered Medication [...] Constipation 10/08/2018 Anxiety 05/09/2018 Chronic hepatitis C ([facility] V24, [facility] V28) 0 05/09/2018 Overview (10/25/2024): Negative titers 05/2018 Colon polyps 05/09/2018 Depression 05/09/2018 Overview (05/29/2024): Follows with psychiatrist in [place] Taking effexor for 14 yrs GERD (gastroesophageal [...] 05/09/2018 Foot fracture, right 04/18/2018 Rheumatoid arthritis ([facility] V24, [facility] V28) Encounters Date Type Department Care Team Description 05/29/2025 Telephone [facility] [address] [facility] [address] [place] [address] Mir Ferreira MD 05/23/2025 10:20 AM EDT Office Visit [facility] [place] [facility] [place] [address] Mir Ferreira MD Other chest pain (Primary Dx); Primary hypertension; Pure hypercholesterolemia; Abnormal cardiovascular stress test; Substernal chest pain 05/23/2025 Telephone [facility] [address] [place] [address] Mir Ferreira MD 05/09/2025 Telephone [facility] [address] [place] [address] Loida Izaguirre MD 05/06/2025 1:00 PM EDT Ancillary Procedure [facility] [address] [place] [address] Primary hypertension; Substernal chest pain; Prediabetes; Hyperlipidemia, unspecified hyperlipidemia type 04/24/2025 1:30 PM EDT Office Visit Adult Medicine [address] [phone] Rosita Ray PA Primary hypertension (Primary Dx); Substernal chest pain; Prediabetes; Hyperlipidemia, unspecified hyperlipidemia type; Gastroesophageal reflux disease, unspecified whether esophagitis present 03/11/2025 4:00 PM EDT Office Visit Adult Medicine [address] [phone] Ana Jaquez NP Primary hypertension (Primary Dx); Elevated blood pressure reading from Last 3 Months Immunizations Immunization Administration Dates Next Due Influenza Quadravalent, MDCK [...] 10/08/2018 Colon polyps 05/09/2018 Chronic hepatitis C ([facility]/HCC V24, CMS/HCC V28) 05/09/2018 treated at [facility] in [place]. Negative titers 05/2018 Anxiety 05/09/2018 Complex ovarian cyst 10/18/2018 Subclinical hypothyroidism 05/20/2019 Internal hemorrhoids COPD (chronic obstructive pu lmonary disease) (CMS/HCC V24, CMS/HCC V28) 01/04/2022 Hyperlipidemia 05/29/2020 Rheumatoid arthritis (CMS/HC C V24, CMS/HCC V28) Sarcoidosis Family History Medical History Relation [...] 8:45 AM EDT Office Visit Adult Medicine [facility] [address] [place], [place] [phone] Rosita Ray PA [address] [place], [place] 08/18/2025 2:00 PM EST Ancillary Procedure [facility] [address] [place] [phone] 09/18/2025 8:40 AM EST Office Visit [facility] [address] [place] [phone] Ramona Vargas NP [address] [facility] [address] [place] [phone] Health Maintenance Due Date Last Done Comments Hepatitis B Vaccines (1 of 3 - 19+ 3-dose series) 01/21/1988 Pneumococcal Vaccine: 50+ Years (2 of 2 - PCV) 10/07/2017 10/07/2016 Zoster Vaccines (1 of 2) 2019 HIV Screening 08/06/2022 Social Influencers of Health Screening 08/06/2022 Breast Cancer Screening 02/27/2025 02/28/20 23, 02/25/2022, 06/13/2020, Additional history exists COVID-19 Vaccine (2 - season) 2025 07/12/2022 Influenza Vaccine (#1) 2025 , 05/12/2020, 09/02/2019, Additional history exists Cervical Cancer Screening: HPV 09/01/2025 09/01/2020 Hypertension/CHF/CAD Annual BMP Blood Test 01/07/2026 01/07/2025, 05/01/2024, 05/01/2024 DTaP,Tdap,and Td Vaccines (2 - Td or Tdap) 09/10/2028 09/10/2018 Cholesterol Screening (Lipid Panel) 05/01/2029 05/01/2024, 05/01/2024 Colorectal Cancer Screening: Colonoscopy 09/24/2029 09/24/2019, 09/24/2019 RSV Immunization Adult Patients (1 - 1-dose 75+ series) 01/21/2044 MMR Vaccines Aged Out 10/07/2016 No longer eligi ble based on patient's age to complete this topic Hepatitis C Screening Completed 07/15/2019 Depression Screening Completed 10/24/2024, 05/01/20 24 HIB Vaccines Aged Out No longer eligi [...] 04/24/2025 5:12 PM EDT Substernal chest pain COMPREHENSIVE METABOLIC PANEL Routine 01/07/2025 8:42 AM EDT Subclinical hypothyroidism Prediabetes Mixed hyperlipidemia Primary hypertension HM DEPRESSION SCREENING Routine 05/01/2024 LIPID PANEL Routine 05/01/2024 SCREENING MAMMOGRAPHY BI 2-VIEW BREAST INC CAD Routine 02/27/2023 7:52 AM EDT Encounter for other screening for malignant neoplasm of breast HM HPV Routine 09/01/2020 COLONOSCOPY Routine 09/24/2019 HEPATITIS [...] GEMUSE QTc 454 ms GEMUSE P Wave Mallory 57 degrees GEMUSE R Mallory 46 degrees GEMUSE T Mallory 61 degrees GEMUSE ECG Interpretation Normal sinus [...] CV STRESS PROCEDURES Final Resul t * (ABNORMAL) Comprehensive metabolic panel (01/07/2025 8:42 AM EDT) Sodium 139 133 - 145 mmol/L LAB CHEMISTRY METHOD 01/07/2025 1:43 PM [facility] Potassium 3.5 3.5 - 5.5 mmol/L LAB CHEMISTRY METHOD 01/07/2025 1:43 PM [facility] Chloride 102 96 - 110 mmol/L LAB CHEMISTRY METHOD 01/07/2025 1:43 PM [facility] CO2 27 21 - 32 mmol/L LAB CHEMISTRY METHOD 01/07/2025 1:43 PM [facility] Anion Gap 10 3 - 11 LAB CHEMISTRY METHOD 01/07/2025 1:43 PM [facility] Glucose 146(H) 70 - 100 mg/dL LAB CHEMISTRY METHOD 01/07/2025 1:43 PM [facility] BUN 8 5 - 25 mg/dL LAB CHEMISTRY METHOD 01/07/2025 1:43 PM [facility] Creatinine 0.64 0.50 - 1.10 mg/dL LAB CHEMISTRY METHOD 01/07/2025 1:43 PM [facility] eGFR 105 >=60 mL/min/1. 73m2 LAB CHEMISTRY METHOD 01/07/2025 1:43 PM [facility] Comment:Calculation based on the Chronic Kidney Disease Epidemiology Collaboration (CKD-EPI) equation refit without adjustment for race. BUN/Creatinine Ratio 12.5 LAB CHEMISTRY METHOD 01/07/2025 1:43 PM [facility] Calcium 9.1 8.5 - 10.5 mg/dL LAB CHEMISTRY METHOD 01/07/2025 1:43 PM [facility] AST (SGOT) 27 10 - 42 unit/L LAB CHEMISTRY METHOD 01/07/2025 1:43 PM [facility] ALT (SGPT) 28 10 - 60 unit/L LAB CHEMISTRY METHOD 01/07/2025 1:43 PM [facility] Alkaline Phosphatase 158(H) 42 - 121 unit/L LAB CHEMISTRY METHOD 01/07/2025 1:43 PM [facility] Total Protein 7.5 6.0 - 8.0 g/dL LAB CHEMISTRY METHOD 01/07/2025 1:43 PM [facility] Albumin 3.6 3.2 - 5.0 g/dL LAB CHEMISTRY METHOD 01/07/2025 1:43 PM [facility] Total Bilirubin 0.4 0.0 - 1.4 mg/dL LAB CHEMISTRY METHOD 01/07/2025 1:43 PM [facility] Blood Venous blood specimen / Unknown Venipuncture / Unknown 01/07/2025 8:42 AM EDT 01/07/2025 8:42 AM EDT Kelsey FELIX LAB BLOOD ORDERABLES Final Re sult [facility] [address] [place] [address], * Depression Screening (05/01/2024) Depression Screening abstracted Historical Provider HEALTH MAINTENANCE [...] field digital screening tomosynthesis mammography, reviewed with Elsie compared to previous. The breasts are composed [...] IMG XR PROCEDURES Final Resul t * Cervical Cancer Screening: HPV (09/01/2020) Pathologist [facility] Cervical Cancer Screening: HPV negative, abstracted Result [facility] Historical Provider HEALTH MAINTENANCE Final Result * Colonoscopy (09/24/2019) Pathologist [facility] Colonoscopy no interpretation , abstracted Anatomical Region Laterality Modality Other Historical Provider HEALTH MAINTENANCE Final Result * Hepatitis C Screening (07/15/2019) Pathologist [facility] Hepatitis C Screening abstracted [facility] Provider HEALTH MAINTENANCE Final Result from Last 3 Months or Most Recently Relevant to Health Maintenance Insurance [facility] [employer] Care Teams Carrier Blower Relationship Specialty Start Date End Date Loida Izaguirre MD [address] [place], [place] PCP - General Internal Medicine 09/01/21
--- OUTSIDE RECORDS SUMMARY | 2025-06-03 16:23 | XMS_ITS | Encounter Summary ---
Author Organization [facility] Address [address] [place] [address] Care Team Providers Care Valve Technician Name Role Phone Loida Izaguirre MD Primary Care Provider [phone] Reason for Visit * Reason Onset Date Comments Appointment 05/29/2025 Coronary CTA Encounter Details Date Type Department Care Team (Late st Contact Info) Description 05/29/2025 Telephone [facility] [address] [place] [address] [address] [place] [phone] Sanya Ferreira MD [address] [place] [address] [address] [place] [address] Social History Tobacco Use [...] as of this encounter Progress Notes * Soco Bañuelos - 06/03/2025 11:59 AM EDT Pt is scheduled for a Coronary CTA scan on 07/10/25, 7:00am arr., 8:00am scan, @[facility]. Order and ov note faxed. Letter and lab slip mailed. * Soco Bañuelos - 05/29/2025 12:24 PM EDT Order, demos and ov note have been faxed to [facility] scheduling to authorize and schedule pt for a Coronary CTA scan. They will contact the pt to schedule this appointment. Letter mailed documented in this encounter Plan of Treatment Upcoming Encounters Date Type Department Care Team (Late st Contact Info) Description 06/12/2025 8:45 AM EDT Office Visit Adult Medicine [facility] [address] [place], [place] [phone] Rosita Ray PA [address] [place], [place] 08/18/2025 2:00 PM EST Ancillary Procedure [facility] [address] [place] [address] 09/18/2025 8:40 AM EST Office Visit [facility] [address] [place] [address] [address] [place] [phone] Ramona Vargas NP [address] [place] [address] [address] [place] [phone] documented as of this encounter Visit Diagnoses Not on filedocumented in this encounter Additional Health Concerns Assessment Noted Time PHQ-9 Depression Total Score: 0 10/24/19 25 1:29 PM EST documented as of this encounter Care Teams Valve Technician Relationship Specialty Start Date End Date Loida Izaguirre MD [address] [place] [address] PCP - General Internal Medicine 09/01/21 documented as of this encounter
== END 2025-06-03 13:50 | disposition home or self-care (01) ==
LOC: HO.HPODS 13:23
PROVIDERS: PCP Internal Medicine; Visit Provider Student in an Organized Health Care Education/Training Program
DX: L03.115 Cellulitis of right lower limb (principal); S99.921A Unspecified injury of right foot, initial encounter; W54.0XXA Bitten by dog, initial encounter; M79.671 Pain in right foot
CPT/HCPCS: 29515; 99204

== ENCOUNTER 2025-06-03 13:22 | Outpatient (REF) | payer OTHER, SELFPAY ==
[2025-06-03 17:58] LABS: MANUAL DIFF FLAG NO
[2025-06-03 18:20] LABS: Hematocrit 41.1 % (37.0-47.0); Hemoglobin 13.5 g/dl (12.0-16.0); Imm Gran Abs Auto 0.03 X10*3/uL (0.00-0.03); Imm Gran Pct Auto 0.3 % (0.0-0.4); Lymphocytes Absolute Auto 2.9 X10*3/uL (1.2-4.9); Mean Corpuscular HGB Conc 32.8 g/dl (31.0-35.0); Mean Corpuscular Hemoglobin 28.7 pg (27.0-33.0); Mean Corpuscular Volume 87.4 fL (80.0-98.0); NRBC Abs Auto 0.000 X10*3/uL (0.0-0.012); NRBC Pct Auto 0.0 /100WBC (0.0-0.2); Platelet Count 306 X10*3/uL (160-400); Red Blood Count 4.70 X10*6/uL (4.20-5.50); White Blood Count 8.8 X10*3/uL (4.8-10.8)
[2025-06-03 18:39] LABS: Alanine Aminotransferase 18 U/L (0-31); Albumin Level 4.5 g/dL (3.5-5.0); Alkaline Phosphatase 121 U/L (39-117); Anion Gap 17 (12-20); Aspartate Amino Transferase 34 U/L (5-31); Blood Urea Nitrogen 19 mg/dL (9-16); Calcium 9.3 mg/dL (8.4-10.2); Carbon Dioxide 25 mmol/L (22-29); Chloride 102 mmol/L (96-108); Estimated Glomerular Filt Rate > 60; Potassium 4.4 mmol/L (3.3-5.1); Sodium 140 mmol/L (135-145); Total Protein 7.8 g/dL (6.5-8.0)
== END 2025-06-03 13:23 | disposition home or self-care (01) ==
LOC: HO.HKASLDS 13:22
PROVIDERS: PCP Internal Medicine; Visit Provider Student in an Organized Health Care Education/Training Program
DX: S91.351A Open bite, right foot, initial encounter (principal); L03.115 Cellulitis of right lower limb; W54.0XXA Bitten by dog, initial encounter
CPT/HCPCS: 29515; 36415; 80053; 85025; 99202

== ENCOUNTER 2025-06-11 11:24 | Outpatient (REF) | payer OTHER, SELFPAY ==
--- NOTE | ~2025-06-11 | XR_ITS ---
EXAMINATION: XR FOOT, RIGHT CLINICAL INFORMATION: L03.115 - Cellulitis of right lower limb COMPARISON: None available. TECHNIQUE: AP, lateral, and oblique views of the right foot. FINDINGS: There is a subacute appearing nondisplaced fracture of the mid diaphysis of the second metatarsal. There is surrounding periosteal new bone formation indicating subacute nature. There is no additional fracture, dislocation, or focal bony lesion. There is normal alignment. Mild degenerative arthritis in the first MTP joint. Joint spaces otherwise normal. Normal plantar arch. The midfoot and hindfoot appear normal. There is soft tissue swelling of the dorsal forefoot. XR/XR foot RT min 3V IMPRESSION: 1. Subacute nondisplaced fracture of the mid diaphysis of the second metatarsal. 2. Dorsal soft tissue swelling of the forefoot. Electronically signed by: Jose L Arboleda MD 06/11/2025 12:02 PM EDT
--- OUTSIDE RECORDS SUMMARY | 2025-06-11 14:23 | XMS_ITS | Data Portability ---
Author Organization [facility], [address] Address [address] [place] [address] Assessment No assessment recorded. Plan of Treatment [...] Out Template NON DOT completed [facility] 02/24/2023 10:25:52 Imaging Results None recorded. [...] Diagnosis SNOMED-CT Code Diagnosis ICD10 Code Diagnosis IMO Codes Diagnosis Note [id number] [address] [place] [phone] 05/19/2021 11:04:13 05/19/2021 12:17:12 [id number] [address] [place] [address] 01/17/2022 10:00:57 01/17/2022 13:05:48 [id number] [address] [place] [address] 04/18/2018 17:30:04 04/18/2018 18:38:53 [id number] [address] [place] [address] 03/09/2019 11:07:32 03/09/2019 12:09:16 [id number] [facility] [address] [place] [address] 02/24/2023 09:37:25 02/24/2023 10:26:41 History and physical examination, occupation [id number] Z02.1 Health Concerns Section Related Observation LastModified by Organization Detai ls LastModified Time None Recorded Concern Status LastModified by Organization Details LastModified Time None Recorded Advance Directives Directive None Recorded Payers Insurance Date Sequence Insurance Name Policy Number Policy White Covered Member ID White Member ID Guarantor Name 02/24/2023 1 [facility] (MEDICAID REPLACEMENT - O) JUAN CARLOS Matt [id number] Christine Matt 02/24/2023 OC-ESCREEN Christine Matt [id number] Khoi [id number] Christine Phillips Episode No OBEpisode recorded.
== END 2025-06-11 11:25 | disposition home or self-care (01) ==
LOC: HO.XRAY 11:24
PROVIDERS: PCP Internal Medicine; Visit Provider Student in an Organized Health Care Education/Training Program
DX: L03.115 Cellulitis of right lower limb (principal); M79.671 Pain in right foot; S99.921D Unspecified injury of right foot, subsequent encounter; S91.351D Open bite, right foot, subsequent encounter; W54.0XXD Bitten by dog, subsequent encounter
CPT/HCPCS: 73630

== ENCOUNTER → 2025-06-11 11:31 | Outpatient (BNV) | payer OTHER, SELFPAY | PROVIDERS: PCP Internal Medicine; Visit Provider Radiology Diagnostic Radiology | DX: S92.324A Nondisplaced fracture of second metatarsal bone, right foot, initial encounter for closed fracture (principal); M79.89 Other specified soft tissue disorders | CPT/HCPCS: 73630 ==

== ENCOUNTER 2025-06-17 13:20 | Outpatient (AMB) | payer OTHER, SELFPAY ==
--- NOTE | 2025-06-17 13:39 | MHC.OFFVIS ---
Vital Signs 06/17/25 13:42 Height 5 ft 3 in Weight 164 lb BMI 29.0 Intake Visit Reasons: f/u xrays - right foot dog bite/injury Intake Note: is a 55 year old female who presents to the office today for a 2 week follow up for right foot dog bite/injury. At previous visit X-rays and labs were ordered and pt was instructed that she may be weight-bearing as tolerated to the right foot in a surgical shoe. Pt states she has seen slight improvement since the last time she was here however she notes pain in the dorsum aspect of the foot when she is weight bearing for to long. Patient has no questions or concerns at this time Allergies methotrexate Allergy (Verified 06/17/25 13:42) Hives interferons Allergy (Unknown, Uncoded 09/18/24 09:03) Hives sulfa Allergy (Unknown, Uncoded 09/18/24 09:03) Hives HPI Comments Details: The patient is a 55-year-old female presenting for a follow up for right foot injury. She states she has noticed some improvement, but still experiences pain while ambulating. Pain is localize to the dorsal midfoot. She denies any new injuries. Patient denies any numbness or tingling at this time. She states she has been adhering to the RICE protocol and has been utilizing her surgical shoe. At rest, she does not experience any pain. Patient states she has noticed a slight improvement in the swelling. Denies any new pedal injuries. Denies any other pedal concerns. [facility] Medical History (Updated 06/17/25 @ 13:58 by Marissa Pollard DPM) Fracture of second metatarsal bone of right foot Fracture of third metatarsal bone of right foot Right foot pain Dog bite of right foot Right foot injury Cellulitis of right foot Raynaud disease Psoriasis TIA (transient ischemic attack) High cholesterol HTN (hypertension) Review of Systems Const Details: - Musculoskeletal: Reports pain and swelling in the right foot, especially when walking. Physical Exam Extrem Other: Right lower extremity focused physical exam: Derm: Scars from previous puncture wounds from previous dog bite noted to the dorsum of the midfoot. No active bleeding, purulence, or drainage noted. No ecchymosis noted to the dorsum of the foot. Nonpitting Edema noted to the dorsum of the foot - reduced from last visit. No erythema noted. No maceration noted. No hyperkeratotic lesions noted. Vascular: DP/PT pulses palpable. Capillary refill time less than 3 seconds. Temperature gradient warm to warm. Pedal hair absent. Minimal varicosities noted. Neuro: Protective sensation is slightly diminished to light touch, patient reports intermittent numbness and tingling in the foot. MSK: Pain on palpation to the dorsum of the midfoot along the areas of 2nd and 3rd metatarsals. Range of motion of the forefoot reduced due to guarding from pain. Patient has difficulty with plantar flexion of toes. Range of motion of the ankle within normal limits. No crepitus noticed. No fluctuance noted. Mildly antalgic gait noted with the use of a postop shoe. No assistive device used. Office Procedures AMB Podiatry Dressing Details of Procedure: Applied cast padding and an SHERWIN bandage to the right foot/ankle. Patient is to continue using post-op shoe. 38654 - Short leg splint Procedure code (CPT) selection complete Results Reviewed Results Reviewed: Laboratory Tests 06/03/25 14:00 WBC 8.8 Podiatry Read of Right foot xrays (06/11/25): Nondisplaced healing 2nd met fracture with increased bone callus formation and bone consolidation noted. 1st MPJ joint space narrowing with mild cystic changes. Hammertoe deformities 2-4. No soft tissue emphysema. Right foot xrays (06/11/25): FINDINGS: There is a subacute appearing nondisplaced fracture of the mid diaphysis of the second metatarsal. There is surrounding periosteal new bone formation indicating subacute nature. There is no additional fracture, dislocation, or focal bony lesion. There is normal alignment. Mild degenerative arthritis in the first MTP joint. Joint spaces otherwise normal. Normal plantar arch. The midfoot and hindfoot appear normal. There is soft tissue swelling of the dorsal forefoot. IMPRESSION: 1. Subacute nondisplaced fracture of the mid diaphysis of the second metatarsal. 2. Dorsal soft tissue swelling of the forefoot. Assessment & Plan Assessment & Plan (1) Right foot injury: Code(s): S99.921A - Unspecified injury of right foot, initial encounter Category: Medical Qualifiers: Encounter type: initial encounter Qualified Code(s): S99.921A - Unspecified injury of right foot, initial encounter (2) Dog bite of right foot: Code(s): S91.351A - Open bite, right foot, initial encounter; W54.0XXA - Bitten by dog, initial encounter Category: Medical Qualifiers: Encounter type: initial encounter Qualified Code(s): S91.351A - Open bite, right foot, initial encounter; W54.0XXA - Bitten by dog, initial encounter (3) Right foot pain: Code(s): M79.671 - Pain in right foot Category: Medical (4) Cellulitis of right foot: Code(s): L03.115 - Cellulitis of right lower limb Category: Medical (5) Fracture of second metatarsal bone of right foot: Code(s): S92.321A - Displaced fracture of second metatarsal bone, right foot, initial encounter for closed fracture Category: Medical Qualifiers: Encounter type: subsequent encounter Fracture type: closed Fracture alignment: nondisplaced Fracture healing: with routine healing Qualified Code(s): S92.324D - Nondisplaced fracture of second metatarsal bone, right foot, subsequent encounter for fracture with routine healing Plan Patient was informed and verbally consented to the use of an ambient scribe for clinic note documentation during this visit. I discussed with the patient that the x-rays show a non-displaced fracture of the second metatarsals, which is healing well. We talked about the importance of wearing the surgical shoe and starting physical therapy to prevent weakness. I advised her to take Motrin before physical therapy sessions to manage discomfort. We agreed on a follow-up in three weeks, with x-rays to be done before the visit to assess healing progress. - Continue wearing the surgical shoe and avoid getting Funez compression dressing wet. - Initiate physical therapy to improve mobility and prevent weakness. Provided referral. - Ordered repeat x-rays to monitor healing of fracture. - Patient may be weight-bearing as tolerated to the right foot in a surgical shoe. - Instructed the patient to seek immediate care if redness, drainage, or purulence develops. - Continue RICE protocol and Motrin to manage pain and swelling. RTC in 3 weeks for re-evaluation. If there is continued positive healing noted, will transition into sneaker. Orders: Orders XR foot RT min 3V Today M79.671 - Pain in right foot, S91.351A - Open bite, right foot, initial encounter, S92.331A - Displaced fracture of third metatarsal bone, right foot, initial encounter for closed fracture, S99.921A - Unspecified injury of right foot, initial encounter, W54.0XXA - Bitten by dog, initial encounter AMB Podiatry Dressing Today M79.671 - Pain in right foot, S91.351A - Open bite, right foot, initial encounter, S92.331A - Displaced fracture of third metatarsal bone, right foot, initial encounter for closed fracture, S99.921A - Unspecified injury of right foot, initial encounter, W54.0XXA - Bitten by dog, initial encounter PT Evaluation and Treatment Today M79.671 - Pain in right foot, S91.351A - Open bite, right foot, initial encounter, S92.321A - Displaced fracture of second metatarsal bone, right foot, initial encounter for closed fracture, S99.921A - Unspecified injury of right foot, initial encounter, W54.0XXA - Bitten by dog, initial encounter Coding Level of Care Code Est Pt Level 4 (91921) Diagnoses Injury of right foot, initial encounter S99.921A Encounter type: initial encounter Dog bite of right foot, initial encounter S91.351A; W54.0XXA Encounter type: initial encounter Right foot pain M79.671 Cellulitis of right foot L03.115 Closed nondisplaced fracture of second metatarsal bone of right foot with routine healing, subsequent encounter S92.324D Encounter type: subsequent encounter Fracture type: closed Fracture alignment: nondisplaced Fracture healing: with routine healing CPT Codes Podiatry Dressing - CPT: 97481 - Short leg splint ([id number]) Time Spent (min) 40
[2025-06-17 13:42] VITALS: BMI 29.0
--- OUTSIDE RECORDS SUMMARY | 2025-06-17 17:24 | XMS_ITS | Clinical Summary ---
Author Organization [facility] [address] [place] [address] [address] [facility] [place] Phone Care Team Providers Care Vending Machine Technician Name Role Phone Loida Izaguirre MD Primary Care Provider [phone] Allergies Active Allergy Reactions Criticality Noted Date [...] pulmonary disease with acute lower respiratory infection ([facility] V24, [facility] V28) Inhale 2 puffs by [...] (one) time each day. 30 each 04/24/20 25 025 Discontinued(P atient Discharge) Hospital, Clinic, or Other Facility Administered Medication Ordered Dose Route Frequency Start Date End Date Status TC-99M tetrofosmin P radio-isotope injection 30.3 millicurie 30.3 millicurie IV Once in imaging 05/06/2025 Acti ve Active Problems Problem Noted Date Diagnosed Date [...] 01/06/2022 COPD (chronic obstructive pu lmonary disease) ([facility] V24, [facility] V28) 01/04/2022 Obesity (BMI 30.0-34.9) 01/04/2022 Hyperlipidemia [...] Constipation 10/08/2018 Anxiety 05/09/2018 Chronic hepatitis C ([facility] V24, [facility] V28) 0 05/09/2018 Overview (10/25/2024): Negative titers 05/2018 Colon polyps 05/09/2018 Depression 05/09/2018 Overview (05/29/2024): Follows with psychiatrist in [place] Taking effexor for 14 yrs GERD (gastroesophageal [...] 05/09/2018 Foot fracture, right 04/18/2018 Rheumatoid arthritis ([facility] V24, [facility] V28) Encounters Date Type Department Care Team Description 05/29/2025 Telephone [facility] Cardiology [facility] [address] [place] [address] Mir Ferreira MD 05/23/2025 10:20 AM EDT Office Visit [facility] Cardiology [facility] [address] [place] [address] Mri Ferreira MD Other chest pain (Primary Dx); Primary hypertension; Pure hypercholesterolemia; Abnormal cardiovascular stress test; Substernal chest pain 05/23/2025 Telephone [facility] Cardiology [facility] [address] [place] [address] Mir Ferreira MD 05/09/2025 Telephone [facility] [address] [place] [address] Loida Izaguirre MD 05/06/2025 1:00 PM EDT Ancillary Procedure [facility] Cardiology [facility] [address] [place] [address] Primary hypertension; Substernal chest pain; Prediabetes; Hyperlipidemia, unspecified hyperlipidemia type 04/24/2025 1:30 PM EDT Office Visit Adult Medicine [facility] [address] [place] [address] Rosita Ray PA Primary hypertension (Primary Dx); Substernal chest pain; Prediabetes; Hyperlipidemia, unspecified hyperlipidemia type; Gastroesophageal reflux disease, unspecified whether esophagitis present from Last 3 Months Immunizations Immunization Administration [...] 10/08/2018 Colon polyps 05/09/2018 Chronic hepatitis C ([facility] V24, [facility] V28) 05/09/2018 treated at [facility] in [place]. Negative titers 05/2018 Anxiety 05/09/2018 Complex ovarian cyst 10/18/2018 Subclinical hypothyroidism 05/20/2019 Internal hemorrhoids COPD (chronic obstructive pu lmonary disease) ([facility] V24, [facility] V28) 01/04/2022 Hyperlipidemia 05/29/2020 Rheumatoid arthritis ([facility] V24, [facility] V28) Sarcoidosis Family History Medical History Relation [...] Care Team (Late st Contact Info) Description 07/03/2025 1:30 PM EST Office Visit Adult Medicine [facility] [address] [place] [address] Rosita Ray PA [address] [place] [address] 08/18/2025 2:00 PM EST Ancillary Procedure [facility] Cardiology [facility] [address] [facility] [address] [place] [phone] 09/18/2025 8:40 AM EST Office Visit [facility] [address] [place] [address] [address] [place] [phone] Ramona Vargas NP [address] [place] [address] [address] [place] [phone] Health Maintenance Due Date Last Done Comments Hepatitis B Vaccines (1 of 3 - 19+ 3-dose series) 01/21/1988 Pneumococcal Vaccine: 50+ Years (2 of 2 - PCV) 10/07/2017 10/07/2016 RSV Immunization Adult Patients (1 - Risk 50-74 years 1-dose series) 2019 Zoster Vaccines (1 of 2) 2019 HIV Screening 08/06/2022 Social Influencers of Health Screening 08/06/2022 Breast Cancer Screening 02/27/2025 02/28/20 23, 02/25/2022, 06/13/2020, Additional history exists COVID-19 Vaccine (2 - season) 2025 07/12/2022 Influenza Vaccine (#1) 2025 2, 05/12/2020, 09/02/2019, Additional history exists Cervical Cancer Screening: HPV 09/01/2025 09/01/2020 Hypertension/CHF/CAD Annual BMP Blood Test 01/07/2026 01/07/2025, 05/01/2024, 05/01/2024 DTaP,Tdap,and Td Vaccines (2 - Td or Tdap) 09/10/2028 09/10/2018 Cholesterol Screening (Lipid Panel) 05/01/2029 05/01/2024, 05/01/2024 Colorectal Cancer Screening: Colonoscopy 09/24/2029 09/24/2019, 09/24/2019 MMR Vaccines Aged Out 10/07/2016 No longer [...] neoplasm of breast HM HPV Routine 09/01/2020 HM COLONOSCOPY Routine 09/24/2019 HEPATITIS C SCREENING Routine [...] GEMUSE QTc 454 ms GEMUSE P Wave [place] 57 degrees GEMUSE R [place] 46 degrees GEMUSE T [place] 61 degrees GEMUSE ECG Interpretation Normal sinus [...] Comprehensive metabolic panel (01/07/2025 8:42 AM EDT) Pathologist [facility] Sodium 139 133 - 145 mmol/L LAB CHEMISTRY METHOD 01/07/2025 1:43 PM [facility] Potassium 3.5 3.5 - 5.5 mmol/L LAB CHEMISTRY METHOD 01/07/2025 1:43 PM [facility] Chloride 102 96 - 110 mmol/L LAB CHEMISTRY METHOD 01/07/2025 1:43 PM [facility] CO2 27 21 - 32 mmol/L LAB CHEMISTRY METHOD 01/07/2025 1:43 PM [facility] Anion Gap 10 3 - 11 LAB CHEMISTRY METHOD 01/07/2025 1:43 PM [facility] Glucose 146(H) 70 - 100 mg/dL LAB CHEMISTRY METHOD 01/07/2025 1:43 PM [facility] BUN 8 5 - 25 mg/dL LAB CHEMISTRY METHOD 01/07/2025 1:43 PM [facility] Creatinine 0.64 0.50 - 1.10 mg/dL LAB CHEMISTRY METHOD 01/07/2025 1:43 PM [facility] eGFR 105 >=60 mL/min/1. 73m2 LAB CHEMISTRY METHOD 01/07/2025 1:43 PM [facility] Comment:Calculation based on the Chronic Kidney Disease Epidemiology Collaboration (CKD-EPI) equation refit without adjustment for race. BUN/Creatinine Ratio 12.5 LAB CHEMISTRY METHOD 01/07/2025 1:43 PM T [facility] Calcium 9.1 8.5 - 10.5 mg/dL LAB CHEMISTRY METHOD 01/07/2025 1:43 PM [facility] AST (SGOT) 27 10 - 42 unit/L LAB CHEMISTRY METHOD 01/07/2025 1:43 PM [facility] ALT (SGPT) 28 10 - 60 unit/L LAB CHEMISTRY METHOD 01/07/2025 1:43 PM [facility] Alkaline Phosphatase 158(H) 42 - 121 unit/L LAB CHEMISTRY METHOD 01/07/2025 1:43 PM [facility] Total Protein 7.5 6.0 - 8.0 g/dL LAB CHEMISTRY METHOD 01/07/2025 1:43 PM [facility] Albumin 3.6 3.2 - 5.0 g/dL LAB CHEMISTRY METHOD 01/07/2025 1:43 PM [facility] Total Bilirubin 0.4 0.0 - 1.4 mg/dL LAB CHEMISTRY METHOD 01/07/2025 1:43 PM [facility] Blood Venous blood specimen / Unknown Venipuncture / Unknown 01/07/2025 8:42 AM EDT 01/07/2025 8:42 AM EDT Kelsey FELIX LAB BLOOD ORDERABLES Final Re sult [facility] [address] [place] [address], [place] [phone] * Depression Screening (05/01/2024) [facility] Depression Screening abstracted Historical Provider HEALTH MAINTENANCE [...] * Hm Cervical Cancer Screening: HPV (09/01/2020) Pathologist [facility] Cervical Cancer Screening: HPV negative, abstracted Historical Provider HEALTH MAINTENANCE Final Result * Colonoscopy (09/24/2019) Pathologist [facility] Colonoscopy no interpretation , abstracted Anatomical Region Laterality Modality Other [facility] Provider HEALTH MAINTENANCE Final Result * Hepatitis C Screening (07/15/2019) Pathologist [facility] Hepatitis C Screening abstracted [facility] Provider HEALTH MAINTENANCE Final Result from Last 3 Months or Most Recently Relevant to Health Maintenance Insurance [facility] [place] [address] Care Teams Vending Machine Technician Relationship Specialty Start Date End Date Loida Izaguirre MD [address], [place] PCP - General Internal Medicine 09/01/21
--- OUTSIDE RECORDS SUMMARY | 2025-06-17 17:24 | XMS_ITS | Data Portability ---
Author Organization [facility], [address] Address [address] [place] [address] Assessment No assessment recorded. Plan of Treatment [...] Out Template NON DOT completed [facility] 02/24/2023 10:25:52 Imaging Results None recorded. [...] ICD10 Code Diagnosis IMO Codes Diagnosis Note [id number] [address] [place] [address] 05/19/2021 11:04:13 05/19/2021 12:17:12 [id number] [address] [place] [address] 01/17/2022 10:00:57 01/17/2022 13:05:48 [id number] [address] [place] [address] 04/18/2018 17:30:04 04/18/2018 18:38:53 [id number] [address] [place] [address] 03/09/2019 11:07:32 03/09/2019 12:09:16 [id number] [facility] [address] [place] [address] 02/24/2023 09:37:25 02/24/2023 10:26:41 History and physical examination, occupation [id number] Z02.1 Health Concerns Section Related Observation LastModified by Organization Detai ls LastModified Time None Recorded Concern Status LastModified by Organization Details LastModified Time None Recorded Advance Directives Directive None Recorded Payers Insurance Date Sequence Insurance Name Policy Number Policy White Covered Member ID White Member ID Guarantor Name 02/24/2023 1 [facility] (MEDICAID REPLACEMENT - O) JUAN CARLOS Matt [id number] Christine Matt 02/24/2023 OC-ESCREEN Christine Matt [id number] Khoi [id number] Christine Phillips Episode No OBEpisode recorded.
--- OUTSIDE RECORDS SUMMARY | 2025-06-17 17:24 | XMS_ITS | Encounter Summary ---
Author Organization [facility] Address [address] [place] [address] Care Team Providers Care Lead Architect Name Role Phone Loida Izaguirre MD Primary Care Provider [phone] Encounter Details Date Type Department Care Team (Late st Contact Info) Description 05/23/[address] [facility] Cardiology Associates [facility] [address] [place] [address] [address] [place] [address] Sanya Ferreira MD [address] [place] [address] [address] [place] [address] Social History Tobacco Use Types [...] of this encounter Progress Notes * Sanya Ferreiar MD - 05/23/2025 11:13 AM EDT Please schedule patient for cardiac CT scan to be done at [facility]. Diagnosis: Chest pain. Abnormal nuclear stress test. documented in this encounter Plan of Treatment Upcoming Encounters Date Type Department Care Team (Late st Contact Info) Description 07/03/2025 1:30 PM EST Office Visit Adult Medicine [facility] [address] [place], [place] [phone] Rosita Ray PA [address] [place], [place] 08/18/2025 2:00 PM EST Ancillary Procedure [facility] Cardiology [facility] [address] [place] [address] 09/18/2025 8:40 AM EST Office Visit [facility] Cardiology [facility] [address] [place] [phone] Ramona Vargas NP [address] [place] [address] [address] [place] [phone] documented as of this encounter Visit Diagnoses Not on filedocumented in this encounter Additional Health Concerns Assessment Noted Time PHQ-9 Depression Total Score: 0 10/24/19 25 1:29 PM EST documented as of this encounter Care Teams Lead Architect Relationship Specialty Start Date End Date Loida Izaguirre MD [address] [place], [place] PCP - General Internal Medicine 09/01/21 documented as of this encounter
== END 2025-06-17 13:49 | disposition home or self-care (01) ==
LOC: HO.HPODS 13:21
PROVIDERS: PCP Internal Medicine; Visit Provider Student in an Organized Health Care Education/Training Program
DX: S99.921A Unspecified injury of right foot, initial encounter (principal); S91.351A Open bite, right foot, initial encounter; W54.0XXA Bitten by dog, initial encounter; M79.671 Pain in right foot; L03.115 Cellulitis of right lower limb; S92.324D Nondisplaced fracture of second metatarsal bone, right foot, subsequent encounter for fracture with routine healing
CPT/HCPCS: 29515; 99214

== ENCOUNTER → 2025-06-17 13:20 | Outpatient (BNVA) | payer OTHER, SELFPAY | PROVIDERS: PCP Internal Medicine; Visit Provider Student in an Organized Health Care Education/Training Program | DX: S92.324D Nondisplaced fracture of second metatarsal bone, right foot, subsequent encounter for fracture with routine healing (principal); S91.351D Open bite, right foot, subsequent encounter; M79.671 Pain in right foot; L03.115 Cellulitis of right lower limb | CPT/HCPCS: 29515; 99212 ==

== ENCOUNTER 2025-07-04 08:38 | Outpatient (REF) | payer OTHER, SELFPAY ==
--- OUTSIDE RECORDS SUMMARY | 2025-07-02 11:10 | XMS_ITS | Encounter Summary ---
Author Organization [facility] Address [address] [place] [address] Care Team Providers Care Warehouse Shipping Receiving Clerk Name Role Phone Loida Izaguirre MD Primary Care Provider [phone] Encounter Details Date Type Department Care Team ([facility] Contact Info) Description 07/02/2025 11:10 AM EST Lab Draw Station - [address] Other chest pain; Pure hypercholesterolemia Social History Tobacco Use Types Packs/Day Years [...] on file documented as of this encounter Plan of Treatment Upcoming Encounters Date Type Department Care Team (Late Contact Info) Description 07/07/2025 1:30 PM EST Office Visit Adult Medicine [address] [phone] Rosita Ray PA [address] [place] [address] 08/18/2025 2:00 PM EST Ancillary Procedure [facility] - [address] [place] [phone] 09/18/2025 8:40 AM EST Office Visit [facility] - [facility] Center [address] [place] [phone] Ramona Vargas NP [address] [facility] [address] [place] [phone] Pending Results Name Type Priority Associated Diagnoses Date /Time Lipoprotein A Lab Routine Other chest pain Pure hypercholesterolemia 07/02/2025 11:21 AM EST documented as of this encounter Procedures Procedure Name Priority Date/Time Associated Diagnosis Comments LIPID PANEL WITH REFLEX TO DIRECT LDL Routine 07/02/2025 11:21 AM EST Other chest pain Pure hypercholesterolemia COMPREHENSIVE METABOLIC PANEL Routine 07/02/2025 11:21 AM EST Other chest pain Pure hypercholesterolemia documented in this encounter Results * (ABNORMAL) Comprehensive metabolic panel (07/02/2025 11:21 AM EST) Sodium 139 133 - 145 mmol/L LAB CHEMISTRY METHOD 07/02/2025 4:13 PM [facility] Potassium 3.9 3.5 - 5.5 mmol/L LAB CHEMISTRY METHOD 07/02/2025 4:13 PM [facility] Chloride 107 96 - 110 mmol/L LAB CHEMISTRY METHOD 07/02/2025 4:13 PM [facility] CO2 24 21 - 32 mmol/L LAB CHEMISTRY METHOD 07/02/2025 4:13 PM [facility] Anion Gap 8 3 - 11 LAB CHEMISTRY METHOD 07/02/2025 4:13 PM [facility] Glucose 161(H) 70 - 100 mg/dL LAB CHEMISTRY METHOD 07/02/2025 4:13 PM [facility] BUN 18 5 - 25 mg/dL LAB CHEMISTRY METHOD 07/02/2025 4:13 PM [facility] Creatinine 1.03 0.50 - 1.10 mg/dL LAB CHEMISTRY METHOD 07/02/2025 4:13 PM [facility] eGFR 64 >=60 mL/min/1. 73m2 LAB CHEMISTRY METHOD 07/02/2025 4:13 PM [facility] Comment:Calculation based on the Chronic Kidney Disease Epidemiology Collaboration (CKD-EPI) equation refit without adjustment for race. BUN/Creatinine Ratio 17.5 LAB CHEMISTRY METHOD 07/02/2025 4:13 PM [facility] Calcium 9.5 8.5 - 10.5 mg/dL LAB CHEMISTRY METHOD 07/02/2025 4:13 PM [facility] AST (SGOT) 22 10 - 42 unit/L LAB CHEMISTRY METHOD 07/02/2025 4:13 PM [facility] ALT (SGPT) 23 10 - 60 unit/L LAB CHEMISTRY METHOD 07/02/2025 4:13 PM [facility] Alkaline Phosphatase 151(H) 42 - 121 unit/L LAB CHEMISTRY METHOD 07/02/2025 4:13 PM [facility] Total Protein 7.5 6.0 - 8.0 g/dL LAB CHEMISTRY METHOD 07/02/2025 4:13 PM [facility] Albumin 4.0 3.2 - 5.0 g/dL LAB CHEMISTRY METHOD 07/02/2025 4:13 PM [facility] Total Bilirubin 0.7 0.0 - 1.4 mg/dL LAB CHEMISTRY METHOD 07/02/2025 4:13 PM [facility] Blood Venous blood specimen / Unknown Venipuncture / Unknown 07/02/2025 11:21 AM EST 07/02/2025 11:21 AM EST Sanya Ferreira MD LAB BLOOD ORDERABLES F inal Result [facility] [address] [place] [address], [place] [phone] * (ABNORMAL) Lipid panel with reflex to direct LDL (07/02/2025 11:21 AM EST) Cholesterol 162 0 - 200 mg/dL LAB CHEMISTRY METHOD 07/02/2025 4:13 PM [facility] Triglycerides 271(H) 0 - 150 mg/dL LAB CHEMISTRY METHOD 07/02/2025 4:13 PM [facility] HDL 45 >=40 mg/dL LAB CHEMISTRY METHOD 07/02/2025 4:13 PM [facility] LDL Calculated 63 0 - 100 mg/dL LAB CHEMISTRY METHOD 07/02/2025 4:13 PM [facility] Comment:Estimated LDL Calcul ated using equation: Total cholesterol - HDL cholesterol - (Triglycerides/5) VLDL Cholesterol Adam 54.2 mg/dL LAB CHEMISTRY METHOD 07/02/2025 4:13 PM [facility] Non HDL Chol. (LDL+VLDL) 117 <145 mg/dL LAB CHEMISTRY METHOD 07/02/2025 4:13 PM [facility] Chol/HDL Ratio 3.6 0.0 - 4.4 LAB CHEMISTRY METHOD 07/02/2025 4:13 PM [facility] Blood Venous blood specimen / Unknown Venipuncture / Unknown 07/02/2025 11:21 AM EST 07/02/2025 11:21 AM EST Sanya Ferreira MD LAB BLOOD ORDERABLES F inal Result [facility] [address] [place] [address], documented in this encounter Visit Diagnoses Diagnosis Other chest pain Pure hypercholesterolemia documented in this encounter Additional Health Concerns Assessment Noted Time PHQ-9 Depression Total Score: 0 10/24/19 25 1:29 PM EST documented as of this encounter Care Teams Warehouse Shipping Receiving Clerk Relationship Specialty Start Date End Date Loida Izaguirre MD [address] [place] [address] PCP - General Internal Medicine 09/01/21 documented as of this encounter
--- NOTE | ~2025-07-04 | XR_ITS ---
EXAMINATION: XR FOOT 3 OR MORE VIEWS RIGHT HISTORY: S92.331A - Displaced fracture of third metatarsal bone, right foot, initial... COMPARISON: Comparison is made with the prior examination dated 06/11/2025. FINDINGS: Three weight bearing views of the right foot are submitted. The bones are osteopenic. Again seen is a fracture of the midshaft of the 2nd metatarsal. There is greater callus formation noted, consistent with healing. The fracture line remains visible. There is moderate narrowing of the 1st MTP joint. The soft tissues are unremarkable. XR/XR foot RT min 3V IMPRESSION: Osteopenia. Healing fracture of the midshaft of the 2nd metatarsal. Electronically signed by: Luciano Maki MD 07/04/2025 09:19 AM NAKUL
[2025-07-04 09:03] LABS: MANUAL DIFF FLAG NO
--- OUTSIDE RECORDS SUMMARY | 2025-07-04 09:16 | XMS_ITS | Encounter Summary ---
Author Organization [facility] Address [address] [place] [address] Care Team Providers Care Office Administrative Assistant Name Role Phone Loida Izaguirre MD Primary Care Provider [phone] Reason for Visit * Reason Onset Date Comments Appointment 05/29/2025 Coronary CTA Encounter Details Date Type Department Care Team (Late st Contact Info) Description 05/29/2025 Telephone [facility] [address] [place] [address] [place] [phone] Sanya Ferreira MD [address] [place] [address] [address] [place] [address] Social History Tobacco Use Types [...] encounter Progress Notes * Soco Bañuelos - 07/04/2025 9:05 AM EST Lab results have been faxed to [facility] CT dept * Soco Bañuelos - 06/03/2025 11:59 AM EDT Pt is scheduled for a Coronary CTA scan on 07/10/25, 7:00am arr., 8:00am scan, @[facility]. Order and ov note faxed. Letter and lab slip mailed. * Soco Bañuelos - 05/29/2025 12:24 PM EDT Order, demos and ov note have been faxed to [facility] scheduling to authorize and schedule pt for a Coronary CTA scan. They will contact the pt to schedule this appointment. Letter mailed documented in this encounter Plan of Treatment Upcoming Encounters Date Type Department Care Team (Late st Contact Info) Description 07/07/2025 1:30 PM EST Office Visit Adult Medicine [facility] [address] [place], [place] [phone] Rosita Ray PA [address] [place], [place] 08/18/2025 2:00 PM EST Ancillary Procedure [facility] [place] [address] [place] [phone] 09/18/2025 8:40 AM EST Office Visit [facility] [address] [place] [address] [address] [place] [phone] Ramona Vargas NP [address] [place] [address] [address] [place] [phone] documented as of this encounter Visit Diagnoses Not on filedocumented in this encounter Additional Health Concerns Assessment Noted Time PHQ-9 Depression Total Score: 0 10/24/19 25 1:29 PM EST documented as of this encounter Care Teams Office Administrative Assistant Relationship Specialty Start Date End Date Loida Izaguirre MD [address] [place], [place] PCP - General Internal Medicine 09/01/21 documented as of this encounter
--- OUTSIDE RECORDS SUMMARY | 2025-07-04 09:17 | XMS_ITS | Clinical Summary ---
Author Organization [facility] [address] [place] [address] Address [address] [facility] [place] Phone Care Team Providers Care Pole Framer Name Role Phone Loida Izaguirre MD Primary Care Provider Allergies Active Allergy Reactions Criticality Noted Date [...] 90 tablet 3 4 08/22/20 25 Active umeclidinium-jony anteroL (Anoro Ellipta) 62.5-25 mcg/actuation inhalerIndicatio ns:Chronic obstructive pulmonary disease with acute lower respiratory infection (CMS/HCC V24, CMS/HCC V28) Inhale 1 puff by mouth 1 (one) time each day. 3 each 3 4 Active albuterol HFA (Ventolin HFA) 90 mcg/actuation inhalerIndicatio ns:Chronic obstructive pulmonary disease with acute lower respiratory infection ([facility] V24, CMS/[facility] V28) Inhale 2 puffs by mouth every [...] replace cap. 32 mL 3 5 Active diclofenac (VOLTAREN) 1 % topical [...] crush or chew. 30 each 11 5 05/23/20 26 Active aspirin 81 mg EC tablet TAKE 1 TABLET BY MOUTH EVERY DAY 90 tablet 1 5 Active Hospital, Clinic, or Other Facility Administered Medication [...] 01/06/2022 COPD (chronic obstructive pu lmonary disease) ([facility]/HCC V24, [facility]/HCC V28) 01/04/2022 Obesity (BMI 30.0-34.9) 01/04/2022 Hyperlipidemia [...] 10/08/2018 Anxiety 05/09/2018 Chronic hepatitis C ([facility]/HCC V24, [facility] V28) 0 05/09/2018 Overview (10/25/2024): Negative titers 05/2018 Colon polyps 05/09/2018 Depression 05/09/2018 Overview (05/29/2024): Follows with psychiatrist in [employer] Taking effexor for 14 yrs GERD (gastroesophageal [...] Foot fracture, right 04/18/2018 Rheumatoid arthritis ([facility] V24, [facility] V28) Encounters Date Type Department Care Team Description 07/02/2025 11:10 AM EST Lab Draw Station [address] [phone] Other chest pain; Pure hypercholesterolemia 05/29/2025 Telephone [facility] [address] [place] [address] Mir Breen MD 05/23/2025 10:20 AM EDT Office Visit [facility] [address] [place] [address] Mir Breen MD Other chest pain (Primary Dx); Primary hypertension; Pure hypercholesterolemia; Abnormal cardiovascular stress test; Substernal chest pain 05/23/2025 Telephone [facility] [address] [place] [address] Mir Breen MD 05/09/2025 Telephone [facility] [address] [place] [address] Loida Izaguirre MD 05/06/2025 1:00 PM EDT Ancillary Procedure [facility] - [address] [place] [address] Primary hypertension; Substernal chest pain; Prediabetes; Hyperlipidemia, unspecified hyperlipidemia type 04/24/2025 1:30 PM EDT Office Visit Adult Medicine [address] [phone] Rosita Ray PA Primary hypertension (Primary Dx); [...] Colon polyps 05/09/2018 Chronic hepatitis C ([facility] V24, [facility] V28) 05/09/2018 treated at [facility] in [place]. Negative titers 05/2018 Anxiety 05/09/2018 Complex ovarian cyst 10/18/2018 Subclinical hypothyroidism 05/20/2019 Internal hemorrhoids COPD (chronic obstructive pu lmonary disease) ([facility] V24, [facility] V28) 01/04/2022 Hyperlipidemia 05/29/2020 Rheumatoid arthritis ([facility] C V24, [facility] V28) Sarcoidosis Family History Medical History Relation [...] 1:30 PM EST Office Visit Adult Medicine [facility] [address] [place] [phone] Rosita Ray PA [address] [place], [place] 08/18/2025 2:00 PM EST Ancillary Procedure [facility] [address] [facility] [address] [place] [phone] 09/18/2025 8:40 AM EST Office Visit [facility] [address] [place] [phone] Ramona Vargas NP 2 [facility] [address] [place] [phone] Health Maintenance Due Date Last Done Comments [...] Additional history exists COVID-19 Vaccine (2 - 2024- season) 2025 07/12/2022 Influenza Vaccine (#1) 2025 2, 05/12/2020, 09/02/2019, Additional history exists Cervical Cancer Screening: HPV 09/01/2025 09/01/2020 Hypertension/CHF/CAD Annual BMP Blood Test 07/02/2026 07/02/2025, 01/07/2025, 05/01/2024, Additional history exists DTaP,Tdap,and Td Vaccines (2 - Td or Tdap) 09/10/2028 09/10/2018 Colorectal Cancer Screening: Colonoscopy 09/24/2029 09/24/2019, 09/24/2019 Cholesterol Screening (Lipid Panel) 07/02/2030 07/02/2025, 05/01/2024, 05/01/2024 MMR Vaccines Aged Out 10/07/2016 [...] Procedure Name Priority Date/Time Associated Diagnosis Comments COMPREHENSIVE METABOLIC PANEL Routine 07/02/2025 11:21 AM EST Other chest pain Pure hypercholesterolemia LIPID PANEL WITH REFLEX TO DIRECT LDL Routine 07/02/2025 11:21 AM EST Other chest pain Pure hypercholesterolemia ECG 12-LEAD Routine 05/23/2025 10:15 AM EDT Abnormal cardiovascular stress test Primary hypertension NM EXERCISE STRESS TEST W/ MYOCARDIAL PERFUSION Routine 05/06/2025 3:49 PM EDT Primary hypertension Substernal chest pain Prediabetes Hyperlipidemia, unspecified hyperlipidemia type ECG 12-LEAD Routine 04/24/2025 5:12 PM EDT Substernal chest pain DEPRESSION SCREENING Routine 05/01/2024 SCREENING MAMMOGRAPHY BI 2-VIEW BREAST INC CAD Routine 02/27/2023 7:52 AM EDT Encounter for other screening for malignant neoplasm of breast HM HPV Routine 09/01/2020 COLONOSCOPY Routine 09/24/2019 HEPATITIS C SCREENING Routine 07/15/2019 from Last 3 Months or Most Recently Relevant to Health Maintenance Results * (ABNORMAL) Lipid panel with reflex to direct LDL (07/02/2025 11:21 AM EST) Cholesterol 162 0 - 200 mg/dL LAB CHEMISTRY METHOD 07/02/2025 4:13 PM [facility] Triglycerides 271(H) 0 - 150 mg/dL LAB CHEMISTRY METHOD 07/02/2025 4:13 PM [facility] HDL 45 >=40 mg/dL LAB CHEMISTRY METHOD 07/02/2025 4:13 PM [facility] LDL Calculated 63 0 - 100 mg/dL LAB CHEMISTRY METHOD 07/02/2025 4:13 PM [facility] Comment:Estimated LDL Calcul ated using equation: Total cholesterol - HDL cholesterol - (Triglycerides/5) VLDL Cholesterol Adam 54.2 mg/dL LAB CHEMISTRY METHOD 07/02/2025 4:13 PM [facility] Non HDL Chol. (LDL+VLDL) 117 <145 mg/dL LAB CHEMISTRY METHOD 07/02/2025 4:13 PM [facility] Chol/HDL Ratio 3.6 0.0 - 4.4 LAB CHEMISTRY METHOD 07/02/2025 4:13 PM [facility] Blood Venous blood specimen / Unknown Venipuncture / Unknown 07/02/2025 11:21 AM EST 07/02/2025 11:21 AM EST Mir Breen MD LAB BLOOD ORDERABLES F inal Result [facility] [address] [place] [address], * (ABNORMAL) Comprehensive metabolic panel (07/02/2025 11:21 AM EST) Pathologist [facility] Sodium 139 133 - 145 mmol/L LAB CHEMISTRY METHOD 07/02/2025 4:13 PM [facility] Potassium 3.9 3.5 - 5.5 mmol/L LAB CHEMISTRY METHOD 07/02/2025 4:13 PM [facility] Chloride 107 96 - 110 mmol/L LAB CHEMISTRY METHOD 07/02/2025 4:13 PM [facility] CO2 24 21 - 32 mmol/L LAB CHEMISTRY METHOD 07/02/2025 4:13 PM [facility] Anion Gap 8 3 - 11 LAB CHEMISTRY METHOD 07/02/2025 4:13 PM [facility] Glucose 161(H) 70 - 100 mg/dL LAB CHEMISTRY METHOD 07/02/2025 4:13 PM [facility] BUN 18 5 - 25 mg/dL LAB CHEMISTRY METHOD 07/02/2025 4:13 PM [facility] Creatinine 1.03 0.50 - 1.10 mg/dL LAB CHEMISTRY METHOD 07/02/2025 4:13 PM [facility] eGFR 64 >=60 mL/min/1. 73m2 LAB CHEMISTRY METHOD 07/02/2025 4:13 PM [facility] Comment:Calculation based on the Chronic Kidney Disease Epidemiology Collaboration (CKD-EPI) equation refit without adjustment for race. BUN/Creatinine Ratio 17.5 LAB CHEMISTRY METHOD 07/02/2025 4:13 PM [facility] Calcium 9.5 8.5 - 10.5 mg/dL LAB CHEMISTRY METHOD 07/02/2025 4:13 PM [facility] AST (SGOT) 22 10 - 42 unit/L LAB CHEMISTRY METHOD 07/02/2025 4:13 PM [facility] ALT (SGPT) 23 10 - 60 unit/L LAB CHEMISTRY METHOD 07/02/2025 4:13 PM [facility] Alkaline Phosphatase 151(H) 42 - 121 unit/L LAB CHEMISTRY METHOD 07/02/2025 4:13 PM [facility] Total Protein 7.5 6.0 - 8.0 g/dL LAB CHEMISTRY METHOD 07/02/2025 4:13 PM [facility] Albumin 4.0 3.2 - 5.0 g/dL LAB CHEMISTRY METHOD 07/02/2025 4:13 PM [facility] Total Bilirubin 0.7 0.0 - 1.4 mg/dL LAB CHEMISTRY METHOD 07/02/2025 4:13 PM [facility] Blood Venous blood specimen / Unknown Venipuncture / Unknown 07/02/2025 11:21 AM EST 07/02/2025 11:21 AM EST Mir Breen MD LAB BLOOD ORDERABLES F inal Result [facility] [address] [place] [address], * ECG 12 lead (05/23/2025 10:15 AM EDT) Only the most recent of2 resultswithin the time period is included. Ventricular Rate ECG 80 BPM GEMUSE Atrial Rate 80 BPM GEMUSE P-R Interval 150 ms GEMUSE QRS Duration 84 ms GEMUSE Q-T Interval 394 ms GEMUSE QTc 454 ms GEMUSE P Wave [place] 57 degrees GEMUSE R [place] 46 degrees GEMUSE T [place] 61 degrees GEMUSE ECG Interpretation Normal sinus rhythm Normal ECG When compared with ECG of 22-OCT-2018 16:03, Nonspecific T wave abnormality no longer evident in Anterolateral leads Confirmed by MIR BREEN ([id number]) on 05/23/2025 10:50:08 AM GEMUSE 05/23/2025 10:1 5 AM EDT 05/23/2025 10:50 AM EDT us Mir Breen MD ECG ORDERABLES Final Result GEMUSE * [...] CV STRESS PROCEDURES Final Resul t * Depression Screening (05/01/2024) [facility] Depression Screening abstracted Historical Provider HEALTH MAINTENANCE Final Result * SCREENING MAMMOGRAPHY BI 2-VIEW BREAST [...] % Breast cancer risk category Low (<15%) Result [facility] uLma Gonzalez DO IMG XR PROCEDURES Final Resul t * Cervical Cancer Screening: HPV (09/01/2020) [facility] Cervical Cancer Screening: HPV negative, abstracted Result [facility] Provider HEALTH MAINTENANCE Final Result * Colonoscopy (09/24/2019) [facility] Colonoscopy no interpretation , abstracted Anatomical Region Laterality Modality Other Historical Provider HEALTH MAINTENANCE Final Result * Hepatitis C Screening (07/15/2019) [facility] Hepatitis C Screening abstracted Result [facility] Provider HEALTH MAINTENANCE Final Result from Last 3 Months or Most Recently Relevant to Health Maintenance [facility] [place] [id number] [facility] Care Teams Pole Framer Relationship Specialty Start Date End Date Loida Izaguirre MD [address] [place] [address] PCP - General Internal Medicine 09/01/21
[2025-07-04 09:39] LABS: Hematocrit 37.5 % (37.0-47.0); Hemoglobin 12.5 g/dl (12.0-16.0); Imm Gran Abs Auto 0.02 X10*3/uL (0.00-0.03); Imm Gran Pct Auto 0.3 % (0.0-0.4); Lymphocytes Absolute Auto 2.5 X10*3/uL (1.2-4.9); Mean Corpuscular HGB Conc 33.3 g/dl (31.0-35.0); Mean Corpuscular Hemoglobin 28.3 pg (27.0-33.0); Mean Corpuscular Volume 84.8 fL (80.0-98.0); NRBC Abs Auto 0.000 X10*3/uL (0.0-0.012); NRBC Pct Auto 0.0 /100WBC (0.0-0.2); Platelet Count 249 X10*3/uL (160-400); Red Blood Count 4.42 X10*6/uL (4.20-5.50); White Blood Count 7.6 X10*3/uL (4.8-10.8)
[2025-07-04 10:08] LABS: Alanine Aminotransferase 21 U/L (0-31); Aspartate Amino Transferase 34 U/L (5-31); Estimated Glomerular Filt Rate > 60
== END 2025-07-04 08:39 | disposition home or self-care (01) ==
LOC: HO.LAB 08:38
PROVIDERS: Absent Provider Student in an Organized Health Care Education/Training Program; PCP Internal Medicine; Visit Provider Internal Medicine Rheumatology
DX: S92.331A Displaced fracture of third metatarsal bone, right foot, initial encounter for closed fracture (principal); S91.351A Open bite, right foot, initial encounter; W54.0XXA Bitten by dog, initial encounter; Z79.899 Other long term (current) drug therapy
CPT/HCPCS: 36415; 73630; 82565; 84450; 84460; 85025; 85652; 86140

== ENCOUNTER → 2025-07-04 09:03 | Outpatient (BNV) | payer OTHER, SELFPAY | PROVIDERS: Absent Provider Student in an Organized Health Care Education/Training Program; PCP Internal Medicine; Visit Provider Radiology Diagnostic Radiology | DX: S92.331D Displaced fracture of third metatarsal bone, right foot, subsequent encounter for fracture with routine healing (principal); M85.871 Other specified disorders of bone density and structure, right ankle and foot | CPT/HCPCS: 73630 ==

== ENCOUNTER 2025-08-04 11:27 | Outpatient (AMB) | payer OTHER, SELFPAY ==
--- NOTE | 2025-08-04 11:32 | MHC.OFFVIS ---
Vital Signs 08/04/25 11:33 Height 5 ft 3 in Weight 164 lb BMI 29.0 Intake Visit Reasons: right foot swollen/painfull Intake Note: is a 55 year old female who presents today for a follow up for right foot pain and swelling. At her last visit patient was advised to continue the use of the surgical boot she was given. She was also told to start physical therapy and a repeat Xray was ordered. Today she states she is doing well however, she complaints she might have re-injured her foot. She states physical therapy has not gotten ahold of her, and she did have the xrays done as well. Allergies methotrexate Allergy (Verified 06/17/25 13:42) Hives interferons Allergy (Unknown, Uncoded 09/18/24 09:03) Hives sulfa Allergy (Unknown, Uncoded 09/18/24 09:03) Hives HPI Comments Details: The patient is a 55 year old female presenting for follow-up of right 2nd metatarsal fracture. Patient states she recently fell and felt a popping sensation in the right foot. Since the new injury, she has experienced a return of swelling and throbbing pain in the same area as her previous injury, affecting both the top and bottom of her foot. The pain extends into her ankle if she is on her foot for too long. She has been managing her symptoms at home with ice and elevation. She has taken Motrin 800 mg but reports it provides little relief. She denies any other pedal concerns. [facility] Medical History (Updated 06/17/25 @ 13:58 by Marissa Pollard DPM) Fracture of second metatarsal bone of right foot Fracture of third metatarsal bone of right foot Right foot pain Dog bite of right foot Right foot injury Cellulitis of right foot Raynaud disease Psoriasis TIA (transient ischemic attack) High cholesterol HTN (hypertension) Review of Systems Const Details: - Musculoskeletal: Reports an acute onset of throbbing pain and swelling in her foot after recent right foot injury. Pain is located on the dorsal and plantar surfaces and radiates to the ankle with prolonged ambulation. Physical Exam Exam Exam: Physical Exam - Musculoskeletal: Tenderness to palpation over the dorsal and plantar aspects of the foot. - Neurological: Sensation to light touch is intact in the foot. Vital Signs: BMI result Body Mass Index 29.0 Extrem Other: Right lower extremity focused physical exam: Derm: Scars from previous puncture wounds from previous dog bite noted to the dorsum of the midfoot. No active bleeding, purulence, or drainage noted. No ecchymosis noted to the dorsum of the foot. Nonpitting Edema noted to the dorsum of the foot - increased from last visit. No erythema noted. No maceration noted. No hyperkeratotic lesions noted. Vascular: DP/PT pulses palpable. Capillary refill time less than 3 seconds. Temperature gradient warm to warm. Pedal hair absent. Minimal varicosities noted. Neuro: Protective sensation is slightly diminished to light touch, patient reports intermittent numbness and tingling in the foot. MSK: Pain on palpation to the dorsum of the midfoot along the areas of 2nd and 3rd metatarsals. Range of motion of the forefoot reduced due to guarding from pain. Patient has difficulty with plantar flexion of toes. Range of motion of the ankle within normal limits. No crepitus noticed. No fluctuance noted. Antalgic gait noted without the use of an assistive device. Office Procedures [facility] Podiatry Dressing Details of Procedure: Applied a stockinette, cast padding, Jed bandage to the right lower extremity with the use of the cam boot. 52708 - Short leg splint Procedure code (CPT) selection complete Results Reviewed Results Reviewed: Laboratory Tests 06/03/25 07/04/25 14:00 09:01 WBC 7.6 Random Glucose 105 AST 34 H ALT 21 Ordered right foot weightbearing three-view x-rays to be performed prior to next visit. Podiatry Read of Right foot xrays (07/04/25): Healing noted to 2nd met fracture with increased bone callus formation and bone consolidation. Joint space narrowing of the 1st MPJ with cystic changes noted. Hammertoe deformities 2 through 4. Right foot xrays (07/04/25): FINDINGS: Three weight bearing views of the right foot are submitted. The bones are osteopenic. Again seen is a fracture of the midshaft of the 2nd metatarsal. There is greater callus formation noted, consistent with healing. The fracture line remains visible. There is moderate narrowing of the 1st MTP joint. The soft tissues are unremarkable. IMPRESSION: Osteopenia. Healing fracture of the midshaft of the 2nd metatarsal. Podiatry Read of Right foot xrays (06/11/25): Nondisplaced healing 2nd met fracture with increased bone callus formation and bone consolidation noted. 1st MPJ joint space narrowing with mild cystic changes. Hammertoe deformities 2-4. No soft tissue emphysema. Right foot xrays (06/11/25): FINDINGS: There is a subacute appearing nondisplaced fracture of the mid diaphysis of the second metatarsal. There is surrounding periosteal new bone formation indicating subacute nature. There is no additional fracture, dislocation, or focal bony lesion. There is normal alignment. Mild degenerative arthritis in the first MTP joint. Joint spaces otherwise normal. Normal plantar arch. The midfoot and hindfoot appear normal. There is soft tissue swelling of the dorsal forefoot. IMPRESSION: 1. Subacute nondisplaced fracture of the mid diaphysis of the second metatarsal. 2. Dorsal soft tissue swelling of the forefoot. Assessment & Plan Assessment & Plan (1) Right foot pain: Code(s): M79.671 - Pain in right foot Category: Medical (2) Right foot injury: Code(s): S99.921A - Unspecified injury of right foot, initial encounter Category: Medical Qualifiers: Encounter type: initial encounter Qualified Code(s): S99.921A - Unspecified injury of right foot, initial encounter (3) Dog bite of right foot: Code(s): S91.351A - Open bite, right foot, initial encounter; W54.0XXA - Bitten by dog, initial encounter Category: Medical Qualifiers: Encounter type: initial encounter Qualified Code(s): S91.351A - Open bite, right foot, initial encounter; W54.0XXA - Bitten by dog, initial encounter (4) Fracture of second metatarsal bone of right foot: Code(s): S92.321A - Displaced fracture of second metatarsal bone, right foot, initial encounter for closed fracture Category: Medical Qualifiers: Encounter type: subsequent encounter Fracture alignment: nondisplaced Fracture healing: with routine healing Fracture type: closed Qualified Code(s): S92.324D - Nondisplaced fracture of second metatarsal bone, right foot, subsequent encounter for fracture with routine healing (5) Cellulitis of right foot: Code(s): L03.115 - Cellulitis of right lower limb Category: Medical (6) Fracture of third metatarsal bone of right foot: Code(s): S92.331A - Displaced fracture of third metatarsal bone, right foot, initial encounter for closed fracture Category: Medical Plan Patient was informed and verbally consented to the use of an ambient scribe for clinic note documentation during this visit. - An order for new x-rays of the right foot was placed to evaluate for a new or re-injury. - Prescribed meloxicam to manage pain and inflammation. - The patient was instructed to discontinue Motrin, ibuprofen, and Celebrex while taking meloxicam. - The patient was placed in a CAM boot for stability but can remove it for sleeping. Patient is to keep dressing on. 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 - Patient is to avoid barefoot walking. - Continue rice protocol. - Cleared for Weightbearing as tolerated in a cam boot. RTC in 1 week. Orders: Orders XR foot RT min 3V 08/04/25 M79.671 - Pain in right foot, S91.351A - Open bite, right foot, initial encounter, S92.324D - Nondisplaced fracture of second metatarsal bone, right foot, subsequent encounter for fracture with routine healing, S99.921A - Unspecified injury of right foot, initial encounter, W54.0XXA - Bitten by dog, initial encounter [facility] Podiatry Dressing 08/04/25 L03.115 - Cellulitis of right lower limb, M79.671 - Pain in right foot, S92.324D - Nondisplaced fracture of second metatarsal bone, right foot, subsequent encounter for fracture with routine healing, S92.331A - Displaced fracture of third metatarsal bone, right foot, initial encounter for closed fracture, S99.921A - Unspecified injury of right foot, initial encounter Medications: New meloxicam 15 mg PO DAILY PRN 30 tabs 0RF pain M79.671 - Pain in right foot, S91.351A - Open bite, right foot, initial encounter, S92.324D - Nondisplaced fracture of second metatarsal bone, right foot, subsequent encounter for fracture with routine healing, S99.921A - Unspecified injury of right foot, initial encounter, W54.0XXA - Bitten by dog, initial encounter Coding Level of Care Code Est Pt Level 4 (91525) Diagnoses Right foot pain M79.671 Injury of right foot, initial encounter S99.921A Encounter type: initial encounter Dog bite of right foot, initial encounter S91.351A; W54.0XXA Encounter type: initial encounter Closed nondisplaced fracture of second metatarsal bone of right foot with routine healing, subsequent encounter S92.324D Encounter type: subsequent encounter Fracture alignment: nondisplaced Fracture healing: with routine healing Fracture type: closed Cellulitis of right foot L03.115 Fracture of third metatarsal bone of right foot S92.331A CPT Codes Podiatry Dressing - CPT: 09221 - Short leg splint ([id number]) Time Spent (min) 35
[2025-08-04 11:33] VITALS: BMI 29.0
== END 2025-08-04 12:04 | disposition home or self-care (01) ==
PROVIDERS: PCP Internal Medicine; Visit Provider Student in an Organized Health Care Education/Training Program
DX: S92.324D Nondisplaced fracture of second metatarsal bone, right foot, subsequent encounter for fracture with routine healing (principal); S92.331A Displaced fracture of third metatarsal bone, right foot, initial encounter for closed fracture; S99.921A Unspecified injury of right foot, initial encounter; S91.351A Open bite, right foot, initial encounter; W54.0XXA Bitten by dog, initial encounter; L03.115 Cellulitis of right lower limb
CPT/HCPCS: 29515; 99214

== ENCOUNTER 2025-08-04 11:27 | Outpatient (REF) | payer OTHER, SELFPAY ==
--- NOTE | ~2025-08-04 | XR_ITS ---
EXAMINATION: XR FOOT 3 OR MORE VIEWS RIGHT HISTORY: M79.671 - Pain in right foot COMPARISON: Comparison is made with the prior examination dated 07/04/2025. FINDINGS: Three views of the right foot are submitted. Osseous mineralization is normal. Again seen is a healing fracture of the midshaft of the 2nd metatarsal. There is greater callus formation seen on the current study. There is a new minimally displaced oblique fracture of the midshaft of the 3rd metatarsal. There is moderate narrowing of the 1st MTP joint. The soft tissues are unremarkable. XR/XR foot RT min 3V IMPRESSION: 1. Continued healing of the previously noted fracture of the midshaft of the 2nd metatarsal. 2. New minimally displaced oblique fracture of the midshaft of the 3rd metatarsal. 3. Findings were communicated to Dr. Pollard by secure text message on 08/04/2025 at 1:06 PM. Electronically signed by: Luciano Maki MD 08/04/2025 01:07 PM NAKUL
== END 2025-08-04 11:28 | disposition home or self-care (01) ==
LOC: HO.XRAY 11:27
PROVIDERS: PCP Internal Medicine; Visit Provider Student in an Organized Health Care Education/Training Program
DX: S92.331A Displaced fracture of third metatarsal bone, right foot, initial encounter for closed fracture (principal); S92.324D Nondisplaced fracture of second metatarsal bone, right foot, subsequent encounter for fracture with routine healing; L03.115 Cellulitis of right lower limb; W19.XXXA Unspecified fall, initial encounter
CPT/HCPCS: 29515; 73630; 99212

== ENCOUNTER → 2025-08-04 12:46 | Outpatient (BNV) | payer OTHER, SELFPAY | PROVIDERS: PCP Internal Medicine; Visit Provider Radiology Diagnostic Radiology | DX: S92.321D Displaced fracture of second metatarsal bone, right foot, subsequent encounter for fracture with routine healing (principal) | CPT/HCPCS: 73630 ==

== ENCOUNTER 2025-08-13 08:37 | Outpatient (AMB) | payer OTHER, SELFPAY ==
--- OUTSIDE RECORDS SUMMARY | 2025-08-08 08:00 | XMS_ITS | Encounter Summary ---
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 * Cardiac Stress Testing (Routine) - Closed Specialty Diagnoses / Procedures Referred By Contac t Referred To Contact Cardiology Diagnoses Palpitations Procedures Cardiac holter monitor (<= 48 hours) [address] ECG EXTERNAL UP TO [address] ECG EXTERNAL < 48 HOURS CONTINUOUS RECORDING/STORAGE R&I BY A PHYS/QHP CT EXTERNAL ECG UP TO 48 HRS INCL RECORDING SCANNING ANLYS W REPORT Sanya Ferreira MD [address] [place] [address] Dr Guadalupe [address] [place] [phone] Phone: tel: fax: [facility] Referral ID Status Reason Start Date Expiration Date Visits Re quested Visits Authorized [id number] Closed 08/01/2025 08/01/2026 1 1 Encounter Details Date Type Department Care Team (Late st Contact Info) Description 08/08/2025 8:00 AM EST Ancillary Procedure [facility] [address] [place] [address] Palpitations Social History Tobacco Use Types Packs/Day Years Used Date Smoking Tobacco: Former Cigarettes 43 S tarted: 08/28/1982 Smokeless Tobacco: Never Quit: 08/31/2002 Alcohol Use Standard Drinks/Week Comments No 0 (1 standard drink = 0.6 oz pur e alcohol) Housing Instability Answer Date Recorde d Are you worried that in the next 2 months you may not have stable housing? No 07/07/2025 Food Access & Nutrition Answer Date Rec orded Do you have access to a vari ety of food including fruits and vegetables? Yes 07/07/2025 Financial Risk Answer Date Recorded How hard is it for you to pa y for the very basics like food, housing, medical care, and air conditioning / heating? Not very hard 07/07/2025 Transportation Answer Date Recorded Has the lack of transportati on kept you from meetings, work, or from getting things needed for daily living? No Has the lack of transportati on kept you from medical appointments or from getting medications? No 07/07/2025 Food Risk Answer Date Recorded Within the past 12 months we worried whether our food would run out before we got money to buy more. Never true 07/07/2025 Within the past 12 months th e food we bought just didn't last and we didn't have money to get more. Never true 07/07/2025 Living Situation Answer Date Recorded What is your living situation? Unrecognized valu e 07/07/2025 Comments Unknown Sex and Gender Information Value Date Recorded Sex Assigned at Not on file Legal Sex Female 9:57 AM EST Gender Identity Not on file Sexual Orientation Not on file documented as of this encounter Plan of Treatment Upcoming Encounters Date Type Department Care Team ([facility] st Contact Info) Description 08/14/2025 1:30 PM EST Appointment [facility] [address] [place] [id number] 03/10/2026 8:00 AM EDT Office Visit Gastroenterology - 299 [facility] [address] [phone] Rachel Crawley NP [address] [address] Pending Results Name Type Priority Associated Diagnoses Date /Time Cardiac holter monitor (<= 48 hours) Cardiac Services Routine Palpitations 08/08/2025 7:42 AM EST documented as of this encounter Visit Diagnoses Diagnosis Palpitations documented in this encounter Additional Health Concerns Assessment Noted Time PHQ-9 Depression Total Score: 0 10/24/19 25 1:29 PM EST documented as of this encounter Care Teams Pan Shover Relationship Specialty Start Date End Date Loida Izaguirre MD [address] [place] [phone] PCP - General Internal Medicine 09/01/21 documented as of this encounter
--- NOTE | 2025-08-13 08:43 | MHC.OFFVIS ---
Vital Signs 08/13/25 08:44 Height 5 ft 3 in Weight 164 lb BMI 29.0 Intake Visit Reasons: right foot fracture Intake Note: is a 55 year old female who presents to the office today for a follow up right foot fracture. At last visit patient was placed in a CAM boot for stability but can remove it for sleeping. Pt was also prescribed Meloxicam. New X-rays were obtained. Pt states she is still experiencing pain in her right foot and she finds slight relief for her pain symptoms with the meloxicam medication. Allergies methotrexate Allergy (Verified 08/13/25 08:44) Hives interferons Allergy (Unknown, Uncoded 09/18/24 09:03) Hives sulfa Allergy (Unknown, Uncoded 09/18/24 09:03) Hives Medication List - Last Reconciled 08/13/25 by Marissa Pollard DPM adalimumab (Humira(CF) Pen) 40 mg (0.4 mL) subcut Q14D albuterol sulfate 90 mcg/actuation (Ventolin HFA) inhalation amlodipine 10 mg PO DAILY aspirin 81 mg PO DAILY celecoxib 200 mg PO BID cholecalciferol (vitamin D3) 1,250 mcg PO QWEEK clonazepam mg PO CPAP (CPAP Machine/Device) As directed diclofenac sodium 1% topical BID leflunomide 20 mg PO DAILY loratadine 10 mg PO DAILY losartan 100 mg PO DAILY meloxicam 15 mg PO DAILY PRN metoprolol tartrate 100 mg PO DAILY pramipexole 0.5 mg PO DAILY rosuvastatin 5 mg PO DAILY sucralfate (Carafate) PO umeclidinium-vilanterol 62.5-25 mcg/actuation (Anoro Ellipta) 1 ea inhalation DAILY venlafaxine ER 150 mg PO DAILY HPI Comments Details: The patient is a 55 year old female presenting for follow-up of a recent right foot injury following a healing right 2nd metatarsal fracture. Recently, she experienced a misstep when she turned and stepped in her bathroom, which caused significant pain. She rates the pain as high as a 7/10, noting it is worse on some days and typically occurs after standing for long periods of time at work. She states she noticed increased swelling and bruising to the area. She states her pain is along the dorsum of the foot in the area of the 2nd and 3rd metatarsals. Patient states she was using her surgical shoe previously. She denies any other pedal concerns. [facility] Medical History (Updated 08/22/25 @ 09:48 by Marissa Pollard DPM) Wears dentures Palpitations CAD (coronary artery disease) PTSD (post-traumatic stress disorder) GERD (gastroesophageal reflux disease) Depression Colon polyps Chronic hepatitis (~2017) Anxiety Constipation Spinal stenosis Raynaud's phenomenon Complex ovarian cyst Cerebral microvascular disease Ataxia Abnormal brain MRI Subclinical hypothyroidism Prediabetes Left carpal tunnel syndrome Hyperlipidemia Obesity COPD (chronic obstructive pulmonary disease) Microalbuminuria Sarcoid Hiatal hernia Congenital diaphragmatic hernia Rheumatoid arthritis Abnormal EKG Chest pain Fracture of second metatarsal bone of right foot Fracture of third metatarsal bone of right foot Right foot pain Dog bite of right foot Right foot injury Cellulitis of right foot Raynaud disease Psoriasis TIA (transient ischemic attack) (~2018) High cholesterol HTN (hypertension) Surgical History (Updated 08/18/25 @ 10:51 by Katie Mortensen RN) H/O colonoscopy History of esophagogastroduodenoscopy (EGD) Hx of tonsillectomy History of tubal ligation Hx of left knee surgery History of ankle surgery Social History Are you a primary career development engineer to a significant other at home: No Do you presently have visiting nurse or other home services: No Patient Tobacco Use Status: Never used Tobacco Review of Systems Const Details: - Musculoskeletal: Reports right foot pain following a recent injury due to a misstep. Reports inability to move the second and third toes of the right foot. All systems reviewed & are unremarkable except as noted in HPI and below Physical Exam Vital Signs: BMI result Body Mass Index 29.0 Extrem Other: Right lower extremity focused physical exam: Derm: Scars from previous puncture wounds from previous dog bite noted to the dorsum of the midfoot. No active bleeding, purulence, or drainage noted. No ecchymosis noted to the dorsum of the foot. Reduced Nonpitting edema noted to the dorsum of the foot. No erythema noted. No maceration noted. No hyperkeratotic lesions noted. Vascular: DP/PT pulses palpable. Capillary refill time less than 3 seconds. Temperature gradient warm to warm. Pedal hair absent. Minimal varicosities noted. Neuro: Protective sensation is slightly diminished to light touch, patient reports intermittent numbness and tingling in the foot. MSK: Significant pain on palpation to the dorsum and plantar aspect of the foot along the 2nd and 3rd metatarsals. Range of motion of the forefoot reduced due to guarding from pain with inability to move 2nd and 3rd toes. Range of motion of the ankle within normal limits. No crepitus noticed. No fluctuance noted. Antalgic gait noted. Office Procedures AMB Podiatry Dressing Details of Procedure: Applied a stockinette, cast padding, an Jed bandage to the right lower extremity with the use of the cam boot. 85122 - Short leg splint Procedure code (CPT) selection complete Results Reviewed Results Reviewed: Laboratory Tests 06/03/25 07/04/25 14:00 09:01 WBC 7.6 Random Glucose 105 AST 34 H ALT 21 Podiatry Read of Right foot xrays (08/04/25): New oblique fracture noted to the 3rd metatarsal with shortening and displacement. Increased comminution noted to the 2nd metatarsal with obliteration of previously formed bone callus and consolidation. Joint space narrowing of the 1st MPJ with cystic changes noted. Hammertoe deformities 2 through 4. Right foot xrays (08/04/25): FINDINGS: Three views of the right foot are submitted. Osseous mineralization is normal. Again seen is a healing fracture of the midshaft of the 2nd metatarsal. There is greater callus formation seen on the current study. There is a new minimally displaced oblique fracture of the midshaft of the 3rd metatarsal. There is moderate narrowing of the 1st MTP joint. The soft tissues are unremarkable. IMPRESSION: 1. Continued healing of the previously noted fracture of the midshaft of the 2nd metatarsal. 2. New minimally displaced oblique fracture of the midshaft of the 3rd metatarsal Podiatry Read of Right foot xrays (07/04/25): Healing noted to 2nd met fracture with increased bone callus formation and bone consolidation. Joint space narrowing of the 1st MPJ with cystic changes noted. Hammertoe deformities 2 through 4. Right foot xrays (07/04/25): FINDINGS: Three weight bearing views of the right foot are submitted. The bones are osteopenic. Again seen is a fracture of the midshaft of the 2nd metatarsal. There is greater callus formation noted, consistent with healing. The fracture line remains visible. There is moderate narrowing of the 1st MTP joint. The soft tissues are unremarkable. IMPRESSION: Osteopenia. Healing fracture of the midshaft of the 2nd metatarsal. Podiatry Read of Right foot xrays (06/11/25): Nondisplaced healing 2nd met fracture with increased bone callus formation and bone consolidation noted. 1st MPJ joint space narrowing with mild cystic changes. Hammertoe deformities 2-4. No soft tissue emphysema. Right foot xrays (06/11/25): FINDINGS: There is a subacute appearing nondisplaced fracture of the mid diaphysis of the second metatarsal. There is surrounding periosteal new bone formation indicating subacute nature. There is no additional fracture, dislocation, or focal bony lesion. There is normal alignment. Mild degenerative arthritis in the first MTP joint. Joint spaces otherwise normal. Normal plantar arch. The midfoot and hindfoot appear normal. There is soft tissue swelling of the dorsal forefoot. IMPRESSION: 1. Subacute nondisplaced fracture of the mid diaphysis of the second metatarsal. 2. Dorsal soft tissue swelling of the forefoot. Assessment & Plan Assessment & Plan (1) Right foot injury: Code(s): S99.921A - Unspecified injury of right foot, initial encounter Category: Medical Qualifiers: Encounter type: initial encounter Qualified Code(s): S99.921A - Unspecified injury of right foot, initial encounter (2) Right foot pain: Code(s): M79.671 - Pain in right foot Category: Medical (3) Fracture of third metatarsal bone of right foot: Code(s): S92.331A - Displaced fracture of third metatarsal bone, right foot, initial encounter for closed fracture Category: Medical Qualifiers: Encounter type: initial encounter Fracture type: closed Fracture alignment: displaced Qualified Code(s): S92.331A - Displaced fracture of third metatarsal bone, right foot, initial encounter for closed fracture (4) Fracture of second metatarsal bone of right foot: Code(s): S92.321A - Displaced fracture of second metatarsal bone, right foot, initial encounter for closed fracture Category: Medical Qualifiers: Encounter type: subsequent encounter Fracture alignment: displaced Fracture healing: with routine healing Fracture type: closed Qualified Code(s): S92.321D - Displaced fracture of second metatarsal bone, right foot, subsequent encounter for fracture with routine healing (5) Right foot injury: Code(s): S99.921A - Unspecified injury of right foot, initial encounter Category: Medical Qualifiers: Encounter type: initial encounter Qualified Code(s): S99.921A - Unspecified injury of right foot, initial encounter (6) Right foot pain: Code(s): M79.671 - Pain in right foot Category: Medical (7) Fracture of third metatarsal bone of right foot: Code(s): S92.331A - Displaced fracture of third metatarsal bone, right foot, initial encounter for closed fracture Category: Medical (8) Fracture of second metatarsal bone of right foot: Code(s): S92.321A - Displaced fracture of second metatarsal bone, right foot, initial encounter for closed fracture Category: Medical Qualifiers: Encounter type: subsequent encounter Fracture alignment: nondisplaced Fracture healing: with routine healing Fracture type: closed Qualified Code(s): S92.324D - Nondisplaced fracture of second metatarsal bone, right foot, subsequent encounter for fracture with routine healing (9) Dog bite of right foot: Code(s): S91.351A - Open bite, right foot, initial encounter; W54.0XXA - Bitten by dog, initial encounter Category: Medical Qualifiers: Encounter type: initial encounter Qualified Code(s): S91.351A - Open bite, right foot, initial encounter; W54.0XXA - Bitten by dog, initial encounter (10) Cellulitis of right foot: Code(s): L03.115 - Cellulitis of right lower limb Category: Medical Plan Patient was informed and verbally consented to the use of an ambient scribe for clinic note documentation during this visit. I reviewed the new x-rays with the patient, which showed a re-fracture of her second metatarsal and a new fracture of her third metatarsal following the recent misstep. I explained that because the bone is not healing properly on its own and is fragile, surgery is now the recommended course of treatment to ensure proper fixation. I described the surgical procedure and we discussed the post-operative recovery process. Patient inquired about [facility] paperwork. - Surgery is recommended for the fractures of the second and third metatarsals due to improper healing and instability (right foot ORIF of 2nd and 3rd metatarsals). - Prescribed vitamin-D. - Patient is to be nonweightbearing to the right lower extremity with the use of an assistive device. Provided patient with a walker. - We will fill out provider portion of [facility] paperwork. - Patient is to keep the dressing clean, dry, and intact. RTC in 2 weeks for preoperative appointment. Orders: Referrals Podiatry Procedure Notification S92.331A - Displaced fracture of third metatarsal bone, right foot, initial encounter for closed fracture, S92.324D - Nondisplaced fracture of second metatarsal bone, right foot, subsequent encounter for fracture with routine healing, M79.671 - Pain in right foot, S99.921A - Unspecified injury of right foot, initial encounter Medications: New cholecalciferol (vitamin D3) 1,250 mcg PO QWEEK 14 caps 0RF S99.921A - Unspecified injury of right foot, initial encounter, M79.671 - Pain in right foot, S92.324D - Nondisplaced fracture of second metatarsal bone, right foot, subsequent encounter for fracture with routine healing, S92.331A - Displaced fracture of third metatarsal bone, right foot, initial encounter for closed fracture Coding Level of Care Code Est Pt Level 4 (80933) Diagnoses Injury of right foot, initial encounter S99.921A Encounter type: initial encounter Right foot pain M79.671 Closed displaced fracture of third metatarsal bone of right foot, initial encounter S92.331A Encounter type: initial encounter Fracture type: closed Fracture alignment: displaced Closed displaced fracture of second metatarsal bone of right foot with routine healing, subsequent encounter S92.321D Encounter type: subsequent encounter Fracture alignment: displaced Fracture healing: with routine healing Fracture type: closed Dog bite of right foot, initial encounter S91.351A; W54.0XXA Encounter type: initial encounter Cellulitis of right foot L03.115 CPT Codes Podiatry Dressing - CPT: 69927 - Short leg splint ([id number]) Time Spent (min) 37
[2025-08-13 08:44] VITALS: BMI 29.0
--- OUTSIDE RECORDS SUMMARY | 2025-08-13 08:55 | XMS_ITS | Encounter Summary ---
Author Organization [facility] Address [address] [place] [address] Care Team Providers Care Fishing Boat Captain Name Role Phone Loida Izaguirre MD Primary Care Provider [phone] Encounter Details Date Type Department Care Team (Late st Contact Info) Description 07/30/2025 Results Follow-Up [facility] [address] [place] [phone] Sanya Ferreira MD [address] [place] [address] [address] [place] [phone] Social History Tobacco Use Types Packs/Day Years [...] Upcoming Encounters Date Type Department Care Team ([facility] st Contact Info) Description 08/14/2025 1:30 PM EST Appointment [facility] [address] [phone] 03/10/2026 8:00 AM EDT Office Visit Gastroenterology - [address] [phone] Rachel Crawley, JJ [address] [address] documented as of this encounter Visit Diagnoses Not on filedocumented in this encounter Additional Health Concerns Assessment Noted Time PHQ-9 Depression Total Score: 0 10/24/19 25 1:29 PM EST documented as of this encounter Care Teams Fishing Boat Captain Relationship Specialty Start Date End Date Loida Izaguirre MD [address] [place] [address] PCP - General Internal Medicine 09/01/21 documented as of this encounter
--- OUTSIDE RECORDS SUMMARY | 2025-08-13 08:55 | XMS_ITS | Data Portability ---
Author Organization [facility], [id number] Address [address] [place] [address] Assessment No assessment recorded. Plan of Treatment [...] Out Template NON DOT completed [employer] [facility] 02/24/2023 10:25:52 Imaging Results None recorded. [...] ICD10 Code Diagnosis IMO Codes Diagnosis Note [id number] [address] [place] [address] 05/19/2021 11:04:13 05/19/2021 12:17:12 [id number] [address] [place] [address] 01/17/2022 10:00:57 01/17/2022 13:05:48 [id number] [address] [place] [address] 04/18/2018 17:30:04 04/18/2018 18:38:53 [id number] [address] [place] [address] 03/09/2019 11:07:32 03/09/2019 12:09:16 [id number] [facility] [address] [place] [address] 02/24/2023 09:37:25 02/24/2023 10:26:41 History and physical examination, occupation [id number] Z02.1 Health Concerns Section Related Observation LastModified by Organization Detai ls LastModified Time None Recorded Concern Status LastModified by Organization Details LastModified Time None Recorded Advance Directives Directive None Recorded Payers Insurance Date Sequence Insurance Name Policy Number Policy White Covered Member ID White Member ID Guarantor Name 02/24/2023 1 [facility] (MEDICAID REPLACEMENT - O) JUAN CARLOS Matt [id number] Christine Matt 02/24/2023 OC-ESCREEN Christine Matt [id number] Khoi [id number] Christine Phillips Episode No OBEpisode recorded.
--- OUTSIDE RECORDS SUMMARY | 2025-08-13 08:55 | XMS_ITS | Encounter Summary ---
Author Organization [facility] Address [address] [place] [address] Care Team Providers Care Forest Fire Prevention Specialist Name Role Phone Loida Izaguirre MD Primary Care Provider [phone] Encounter Details Date Type Department Care Team (Late st Contact Info) Description 08/05/2025 Telephone [facility] [address] [place] [address] [place] [address] Sanya Ferreira MD [address] [place] [address] [address] [place] [address] Social History Tobacco Use Types [...] as of this encounter Progress Notes * Kathryn Hart - 08/11/2025 3:51 PM EST Spoke to patient to schedule cardiac cath, faxed worksheet to access. Will contact patient once confirmed and go over instructions. Patient aware of plan and will await my call. * Kathryn Hart - 08/11/2025 1:37 PM EST I left patient a voicemail to schedule cath procedure * Katrhyn Hart - 08/06/2025 10:06 AM EST Please obtain PA for L. Heart cath ? PCI [id number] and [id number] at [facility] with Dr Israel. DX I25.10 Thank You * Sanya Ferreira MD - 08/05/2025 3:30 PM EST Please schedule the patient for left heart catheterization with possible PCI to be done at [facility] Left heart catheterization: Diagnosis: Coronary artery disease Anticoagulation: No Diabetic: No Dialysis: No Lovenox needed: No Contrast Allergy: No Hydration needed: No Premedication needed: No documented in this encounter Plan of Treatment Upcoming Encounters Date Type Department Care Team (Late st Contact Info) Description 08/14/2025 1:30 PM EST Appointment [facility] [address] [place] [address] 03/10/2026 8:00 AM EDT Office Visit Gastroenterology - [address] [phone] Rachel Crawley, JJ [address] [address] documented as of this encounter Visit Diagnoses Not on filedocumented in this encounter Additional Health Concerns Assessment Noted Time PHQ-9 Depression Total Score: 0 10/24/19 25 1:29 PM EST documented as of this encounter Care Teams Forest Fire Prevention Specialist Relationship Specialty Start Date End Date Loida Izaguirre MD [address] [place] [address] PCP - General Internal Medicine 09/01/21 documented as of this encounter
--- OUTSIDE RECORDS SUMMARY | 2025-08-13 08:55 | XMS_ITS | Clinical Summary ---
Author Organization [facility] [address] [place] [address] Address [address] [facility] [place] Phone Care Team Providers Care Tower Foreman Name Role Phone Loida Izaguirre MD Primary Care Provider [phone] Allergies Active Allergy Reactions Criticality Noted Date [...] respiratory infection (CMS/HCC V24, CMS/HCC V28) Inhale 2 puffs by mouth every [...] EVERY DAY 90 tablet 1 5 Active leflunomide (ARAVA) 20 mg tablet Take 1 tablet (20 mg total) by mouth 1 (one) time each day. 5 Active Hospital, Clinic, or Other Facility Administered Medication Ordered Dose Route Frequency Start Date End Date Status TC-99M tetrofosmin P radio-isotope injection 30.3 millicurie 30.3 millicurie IV Once in imaging 05/06/2025 Acti ve Active Problems Problem Noted Date Diagnosed Date Dyspnea on exertion 08/05/2025 Assessment & Plan (08/05/2025 3:29 PM EST): The patient has been having symptoms of exertional dyspnea. Certainly, from a cardiac standpoint, her dyspnea with exertion could be secondary to her underlying CAD. As such, we will proceed with further evaluation for left heart catheterization. Also, from a cardiac standpoint, we need to rule out the possibility of underlying structural heart disease as a cause of her dyspnea and therefore we will proceed with plans to complete an echocardiogram. *However, the patient does have a history of former smoker and she has been seen by the pulmonology service in the past. As such, we will refer the patient for a reevaluation with the pulmonology service to rule out the possibility of underlying pulmonary disease. Orders: Ambulatory referral to Pulmonology; Future Palpitations 08/01/2025 Assessment & Plan (08/05/2025 3:29 PM EST): The patient has been experiencing episodes of palpitations. We will order a Holter monitor to evaluate for any underlying arrhythmias as a cause of her symptoms. We will also order an echocardiogram to rule out any significant structural heart disease. Orders: Cardiac holter monitor (<= 48 hours); Future Coronary artery disease invo lving sokaogon coronary artery of sokaogon heart with angina pectoris 05/22/2025 Assessment & Plan (08/05/2025 3:29 PM EST): The patient was noted to have coronary artery disease and a recent cardiac CT scan. She was found to have an apparent moderate stenosis in the RCA with abnormal CT FFR. The patient continues to have episodes of atypical chest discomfort as well as symptoms of exertional dyspnea despite antianginal therapy with amlodipine, Imdur, and metoprolol. As such, left heart catheterization is indicated for further evaluation of her coronary anatomy. I discussed with the patient and her the possibility of a left heart catheterization. We discussed the benefits and risk of a left heart catheterization. After the conversation, the patient agreed to undergo a left heart catheterization. Will arrange for left heart catheterization accordingly. In the meantime, the patient will continue her current medical therapy with amlodipine, aspirin, Imdur, metoprolol, and rosuvastatin. Assessment & Plan (05/23/2025 11:12 AM EDT): [...] Hyperlipidemia 05/29/2020 Overview (10/25/2024): Assessment & Plan (08/05/2025 3:29 PM EST): The patient has a history of hyperlipidemia. She also has a history of CAD. The patient is currently on rosuvastatin 5 mg already. Recent lipid panel showed an LDL of 63 which is at target. Lipoprotein a level was normal. Will obtain her current medication regimen. Assessment & Plan (05/23/2025 11:12 AM EDT): [...] Anxiety 05/09/2018 Chronic hepatitis C 05/09/2018 Overview (10/25/2024): Negative titers 05/2018 Colon polyps 05/09/2018 Depression 05/09/2018 Overview (05/29/2024): Follows with psychiatrist in [place] Taking effexor for 14 yrs GERD (gastroesophageal reflux disease) 8 Overview (10/25/2024): HTN (hypertension) 05/09/2018 Overview (10/25/2024): Assessment & Plan (08/05/2025 3:29 PM EST): The patient has a history of arterial hypertension. The patient's blood pressure today was noted to be well controlled. We'll continue the current antihypertensive medication regimen. Assessment & Plan (05/23/2025 11:12 AM EDT): The patient has a history of arterial hypertension. The patient's blood pressure today was noted to be well controlled. We'll continue the current antihypertensive medication regimen. Orders: Ambulatory referral to Cardiology ECG 12 lead Psoriasis 05/09/2018 Overview (05/29/2024): On topical steroid PTSD (post-traumatic stress disorder) 05/09/2018 Foot fracture, right 04/18/2018 Rheumatoid arthritis Encounters Date Type Department Care Team Description 08/08/2025 8:00 AM EST Ancillary Procedure [facility] Cardiology [facility] [address] [place] [phone] Palpitations 08/05/2025 Telephone [facility] Cardiology [facility] [address] [place] [address] Mir Ferreira MD 08/05/2025 Telephone [facility] [address] [facility] [address] [place] [address] Mir Ferreira MD 08/04/2025 8:00 AM EST Ancillary Procedure [facility] - [address] [place] [phone] Other chest pain 08/01/2025 1:00 PM EST Office Visit [facility] [address] [facility] [address] [place] [address] Mir Ferreira MD Coronary artery disease involving sokaogon coronary artery of sokaogon heart with angina pectoris (CMS/[facility] V24) (Primary Dx); Primary hypertension; Pure hypercholesterolemia; Palpitations; Dyspnea on exertion 07/30/2025 Results Follow-Up [facility] [address] [facility] [address] [place] [address] Mir Ferreira MD 07/30/2025 Telephone [facility] [address] [facility] [address] [place] [address] Mir Ferreira MD 07/11/2025 Telephone Gastroenterology [facility] [address] [place] [phone] Raghav Curz MD 07/07/2025 1:30 PM EST Office Visit Adult Medicine [address] [phone] Rosita Ray PA Primary hypertension (Primary Dx); Abnormal stress test; Gastroesophageal reflux disease, unspecified whether esophagitis present; Hiatal hernia; Prediabetes; Pure hypercholesterolemia; Encounter for screening mammogram for malignant neoplasm of breast 07/02/2025 11:10 AM EST Lab Draw Station [address] Other chest pain; Pure hypercholesterolemia 05/29/2025 Telephone [facility] [address] [facility] [address] [place] [address] Mir Ferreira MD 05/23/2025 10:20 AM EDT Office Visit [facility] Cardiology [facility] [address] [place] [phone] Mir Ferreira MD Other chest pain (Primary Dx); Primary hypertension; Pure hypercholesterolemia; Abnormal cardiovascular stress test; Substernal chest pain 05/23/2025 Telephone [facility] [address] [facility] [address] [place] [address] Mir Ferreira MD from Last 3 Months Immunizations Immunization Administration Dates Next Due Influenza Quadravalent, MDCK , 0.5ml, preservative free (Flucelvax) 6mo and older 05/12/2020,09/02/2019,05/09/2018 Influenza trivalent, MDCK, 0 .5mL, preservative free (Flucelvax) 6mo and older 07/07/2025 Influenza trivalent, with pr eservative (Fluzone; Afluria) [...] 10/08/2018 Colon polyps 05/09/2018 Chronic hepatitis C ([facility] V24, [facility] V28) 05/09/2018 treated at [facility] in [place]. Negative titers 05/2018 Anxiety 05/09/2018 Complex ovarian cyst 10/18/2018 Subclinical hypothyroidism 05/20/2019 Internal hemorrhoids COPD (chronic obstructive pu lmonary disease) ([facility] V24, [facility] V28) 01/04/2022 Hyperlipidemia 05/29/2020 Rheumatoid arthritis ([facility]/ C V24, [facility] V28) Sarcoidosis Family History Medical History [...] on file Sexual Orientation Not on file Last Filed Vital Signs Vital Sign Reading Time Taken Comments Blood Pressure 134/80 08/04/2025 8:55 AM EST Pulse 79 08/01/2025 1:00 PM EST Temperature 36.9 C (98.5 F) 07/07/2025 1:26 PM EST Respiratory Rate 14 07/07/2025 1:26 PM EST Oxygen Saturation 98% 08/01/2025 1:00 PM EST Inhaled Oxygen Concentration - - Weight 74.4 kg (164 lb) 08/04/2025 8:55 AM EST Height 160 cm (5' 3 ) 08/04/2025 8:55 AM EST Body Mass Index 29.05 08/04/2025 8:55 AM EST Plan of Treatment Upcoming Encounters Date Type Department Care Team (Late st Contact Info) Description 08/14/2025 1:30 PM EST [facility]ointment [facility] [address] [place] [phone] 03/10/2026 8:00 AM EDT Office Visit Gastroenterology - [address] [facility] [address] [phone] Rachel Crawley NP [address] [address] Health Maintenance Due Date Last Done Comments Drug Screen 1970 Non-Opioid Controlled Substance Agreement 1970 Hepatitis A Vaccines (1 of 2 - Risk 2-dose series) 01/21/1988 Hepatitis B Vaccines (1 of 3 - 19+ 3-dose series) 01/21/1988 Pneumococcal Vaccine: 50+ Years (2 of 2 - PCV) 10/07/2017 10/07/2016 RSV Immunization Adult Patients (1 - Risk 50-74 years 1-dose series) 2019 Zoster Vaccines (1 of 2) 2019 Breast Cancer Screening 02/27/2025 02/28/20 23, 02/25/2022, 06/13/2020, Additional history exists Cervical Cancer Screening: HPV 09/01/2025 09/01/2020 Hypertension/CHF/CAD Annual BMP Blood Test 07/02/2026 07/02/2025, 01/07/2025, 05/01/2024, Additional history exists Social Influencers of Health Screening 07/07/2026 07/07/2025 DTaP,Tdap,and Td Vaccines (2 - Td or Tdap) 09/10/2028 09/10/2018 Colorectal Cancer Screening: Colonoscopy 09/24/2029 09/24/2019, 09/24/2019 Cholesterol Screening (Lipid Panel) 07/02/2030 07/02/2025, 05/01/2024, 05/01/2024 MMR Vaccines Aged Out 10/07/2016 No longer eligi ble based on patient's age to complete this topic Hepatitis C Screening Completed 07/15/2019 COVID-19 Vaccine Discontinued 07/12/2022 Depression Screening Completed 10/24/2024, 05/01/20 24 Influenza Vaccine Completed 07/07/2025, , 05/12/2020, Additional history exists HIB Vaccines Aged Out No longer eligi ble based on patient's age to complete this topic HIV Screening Discontinued HPV Vaccines Aged Out No longer eligi [...] Procedure Name Priority Date/Time Associated Diagnosis Comments EXTERNAL CT REPORT Routine 07/10/2025 7: 32 AM EST COMPREHENSIVE METABOLIC PANEL Routine 07/02/2025 11:21 AM EST Other chest pain Pure hypercholesterolemia LIPID PANEL WITH REFLEX TO DIRECT LDL Routine 07/02/2025 11:21 AM EST Other chest pain Pure hypercholesterolemia LIPOPROTEIN A Routine 07/02/2025 11:21 AM EST Other chest pain Pure hypercholesterolemia ECG 12-LEAD Routine 05/23/2025 10:15 AM EDT Abnormal cardiovascular stress test Primary hypertension HM DEPRESSION SCREENING Routine 05/01/2024 SCREENING MAMMOGRAPHY BI 2-VIEW BREAST INC CAD Routine 02/27/2023 7:52 AM EDT Encounter for other screening for malignant neoplasm of breast HM HPV Routine 09/01/2020 COLONOSCOPY Routine 09/24/2019 HEPATITIS C SCREENING Routine 07/15/2019 from Last 3 Months or Most Recently Relevant to Health Maintenance Results * External CT Report (07/10/2025 7:32 AM EST) Anatomical Region Laterality Modality Computed Tomogra phy us Historical Provider MD [facility] CT PROCEDURES Final R esult * (ABNORMAL) Lipid panel with reflex to direct LDL (07/02/2025 11:21 AM EST) Cholesterol 162 0 - 200 mg/dL LAB CHEMISTRY METHOD 07/02/2025 4:13 PM EST [facility] Triglycerides 271(H) 0 - 150 mg/dL LAB CHEMISTRY METHOD 07/02/2025 4:13 PM EST [facility] HDL 45 >=40 mg/dL LAB CHEMISTRY METHOD 07/02/2025 4:13 PM EST [facility] LDL Calculated 63 0 - 100 mg/dL LAB CHEMISTRY METHOD 07/02/2025 4:13 PM EST [facility] Comment:Estimated LDL Calcul ated using equation: Total cholesterol - HDL cholesterol - (Triglycerides/5) VLDL Cholesterol Adam 54.2 mg/dL LAB CHEMISTRY METHOD 07/02/2025 4:13 PM EST [facility] Non HDL Chol. (LDL+VLDL) 117 <145 mg/dL LAB CHEMISTRY METHOD 07/02/2025 4:13 PM EST [facility] Chol/HDL Ratio 3.6 0.0 - 4.4 LAB CHEMISTRY METHOD 07/02/2025 4:13 PM [facility] Blood Venous blood specimen / Unknown Venipuncture / Unknown 07/02/2025 11:21 AM EST 07/02/2025 11:21 AM EST Mir Ferreira MD LAB BLOOD ORDERABLES F inal Result [facility] [address] [place] [address], * Lipoprotein A (07/02/2025 11:21 AM EST) Pathologist [facility] Lipoprotein a <5 0 - 75 nmol/l 07/07/2025 12:22 PM EST [facility] Comment: >=125 nmol/L is an accepted cutoff for risk enhancement in [place] College of Cardiology/[place] Heart Association (ACC/AHA) guidelines. >=100 nmol/L is an accepted cutoff for risk enhancement in the [place] Cardiovascular Society (CCS) guidelines. <75 nmol/L is considered normal, 50-125 nmol/L intermediate, and >125 nmol/L abnormal in the Atherosclerotic Society (EAS) consensus statement. >100 nmol/L is accepted as a risk-enhancing cutoff in the National Lipid Association (NLA) scientific statement. Test performed at [facility], [address] [place] [address] Renetta Winters MD, PhD - Radiotelephone Operator Blood Venous blood specimen / Unknown Venipuncture / Unknown 07/02/2025 11:21 AM EST 07/02/2025 11:21 AM EST Mir Ferreira MD LAB BLOOD ORDERABLES F inal Result [place] [address] * (ABNORMAL) Comprehensive metabolic panel (07/02/2025 11:21 AM EST) Sodium 139 133 - 145 mmol/L LAB CHEMISTRY METHOD 07/02/2025 4:13 PM [facility] Potassium 3.9 3.5 - 5.5 mmol/L LAB CHEMISTRY METHOD 07/02/2025 4:13 PM [facility] Chloride 107 96 - 110 mmol/L LAB CHEMISTRY METHOD 07/02/2025 4:13 PM [facility] CO2 24 21 - 32 mmol/L LAB CHEMISTRY METHOD 07/02/2025 4:13 PM [facility] Anion Gap 8 3 - 11 LAB CHEMISTRY METHOD 07/02/2025 4:13 PM [facility] Glucose 161(H) 70 - 100 mg/dL LAB CHEMISTRY METHOD 07/02/2025 4:13 PM [facility] BUN 18 5 - 25 mg/dL LAB CHEMISTRY METHOD 07/02/2025 4:13 PM [facility] Creatinine 1.03 0.50 - 1.10 mg/dL LAB CHEMISTRY METHOD 07/02/2025 4:13 PM [facility] eGFR 64 >=60 mL/min/1. 73m2 LAB CHEMISTRY METHOD 07/02/2025 4:13 PM [facility] Comment:Calculation based on the Chronic Kidney Disease Epidemiology Collaboration (CKD-EPI) equation refit without adjustment for race. BUN/Creatinine Ratio 17.5 LAB CHEMISTRY METHOD 07/02/2025 4:13 PM [facility] Calcium 9.5 8.5 - 10.5 mg/dL LAB CHEMISTRY METHOD 07/02/2025 4:13 PM [facility] AST (SGOT) 22 10 - 42 unit/L LAB CHEMISTRY METHOD 07/02/2025 4:13 PM [facility] ALT (SGPT) 23 10 - 60 unit/L LAB CHEMISTRY METHOD 07/02/2025 4:13 PM [facility] Alkaline Phosphatase 151(H) 42 - 121 unit/L LAB CHEMISTRY METHOD 07/02/2025 4:13 PM [facility] Total Protein 7.5 6.0 - 8.0 g/dL LAB CHEMISTRY METHOD 07/02/2025 4:13 PM [facility] Albumin 4.0 3.2 - 5.0 g/dL LAB CHEMISTRY METHOD 07/02/2025 4:13 PM [facility] Total Bilirubin 0.7 0.0 - 1.4 mg/dL LAB CHEMISTRY METHOD 07/02/2025 4:13 PM [facility] Blood Venous blood specimen / Unknown Venipuncture / Unknown 07/02/2025 11:21 AM EST 07/02/2025 11:21 AM EST Mir Ferreira MD LAB BLOOD ORDERABLES F inal Result [facility] [address] [place] [address], * ECG 12 lead (05/23/2025 10:15 AM EDT) Ventricular Rate ECG 80 BPM GEMUSE Atrial Rate 80 BPM GEM[facility] P-R Interval 150 ms GEMUSE QRS Duration 84 ms GEM[facility] Q-T Interval 394 ms GEMUSE QTc 454 ms GEMUSE P Wave [place] 57 degrees GEMUSE R [place] 46 degrees GEMUSE T [place] 61 degrees GEMUSE ECG Interpretation Normal sinus rhythm Normal ECG When compared with ECG of 22-OCT-2018 16:03, Nonspecific T wave abnormality no longer evident in Anterolateral leads Confirmed by MIR FERREIRA ([id number]) on 05/23/2025 10:50:08 AM GEMUSE 05/23/2025 10:1 5 AM EDT 05/23/2025 10:50 AM EDT Mir Ferreira MD ECG ORDERABLES Final Result [facility] * Depression Screening (05/01/2024) Depression Screening abstracted [...] Breast cancer risk category Low (<15%) Result [facility] Luma Gonzalez DO IMG XR PROCEDURES Final Resul t * Cervical Cancer Screening: HPV (09/01/2020) Pathologist [facility] Cervical Cancer Screening: HPV negative, abstracted Result [facility] Provider HEALTH MAINTENANCE Final Result * Colonoscopy (09/24/2019) [facility] Colonoscopy no interpretation , abstracted Anatomical Region Laterality Modality Other Result [facility] Provider HEALTH MAINTENANCE Final Result * Hepatitis C Screening (07/15/2019) [facility] Hepatitis C Screening abstracted [facility] Provider HEALTH MAINTENANCE Final Result from Last 3 Months or Most Recently Relevant to Health Maintenance Insurance [facility] [employer] Care Teams Tower Foreman Relationship Specialty Start Date End Date Loida Izaguirre MD [address] [place], [place] PCP - General Internal Medicine 09/01/21
== END 2025-08-13 12:40 | disposition home or self-care (01) ==
PROVIDERS: PCP Internal Medicine; Visit Provider Student in an Organized Health Care Education/Training Program
DX: S99.921A Unspecified injury of right foot, initial encounter (principal); M79.671 Pain in right foot; S92.331A Displaced fracture of third metatarsal bone, right foot, initial encounter for closed fracture; S92.321D Displaced fracture of second metatarsal bone, right foot, subsequent encounter for fracture with routine healing; S91.351A Open bite, right foot, initial encounter; W54.0XXA Bitten by dog, initial encounter; L03.115 Cellulitis of right lower limb; S92.324D Nondisplaced fracture of second metatarsal bone, right foot, subsequent encounter for fracture with routine healing
CPT/HCPCS: 29515; 99214

== ENCOUNTER → 2025-08-13 08:37 | Outpatient (BNVA) | payer OTHER, SELFPAY | PROVIDERS: PCP Internal Medicine; Visit Provider Student in an Organized Health Care Education/Training Program | DX: S92.331A Displaced fracture of third metatarsal bone, right foot, initial encounter for closed fracture (principal); S92.321D Displaced fracture of second metatarsal bone, right foot, subsequent encounter for fracture with routine healing; S91.351A Open bite, right foot, initial encounter; W54.0XXA Bitten by dog, initial encounter; L03.115 Cellulitis of right lower limb; X58.XXXA Exposure to other specified factors, initial encounter; Y93.9 Activity, unspecified; Y92.9 Unspecified place or not applicable; Y99.9 Unspecified external cause status | CPT/HCPCS: 29515; 99212 ==